=== PATIENT | male | born 1935 | race Caucasian/White ===

== ENCOUNTER 2017-04-28 22:38 | Observation (INO) ==
[2017-04-28] MEDS ORDERED: Ondansetron 4 MG/2 ML VIAL IVP ONE (23:08)
[2017-04-28] MEDS ORDERED: Aspirin 81 MG TAB.CHEW PO ONE (23:09)
[2017-04-28] MEDS ORDERED: Nitroglycerin 0.4 MG TAB.SUBL SL PRN (23:10)
--- NOTE | 2017-04-28 23:10 | Emergency Department Note ---
Disposition Clinical Impression: Chest pain Qualifiers: Chest pain type: unspecified Qualified Code(s): R07.9 - Chest pain, unspecified Disposition: Admitted As Inpatient Condition: Fair Time of Disposition: 00:45 General Adult HPI - General Chief complaint: ED Chest Pain Stated complaint: CP, dizzy Time Seen by Provider: 04/28/17 22:45 Source: patient Limitations: no limitations Nursing Notes Reviewed: Yes Vital Signs Reviewed: Yes - History of Present Illness HPI Narrative: patient is a 81-year-old male with past medical history of cardiac stents in 2011, hypertension, DM, A. fib presents emergency Department with complaints of lightheadedness and chest pain that started 1 hour prior to arrival. Patient states that he was sitting in a chair talking on his phone and he felt lightheaded as if he were going to pass out, however he did not pass out. He states since that time he has had gradual onset of this chest pressure on the right side without radiation. Denies any nausea, vomiting, diaphoresis, shortness of breath, radiation of pain or pain with exertion. The patient states that she has no history of blood clots. He states he does not recall his last cardiac workup however may have been in [address] Cid. His cardiac stents replaced in 2011. Pain Scale: 8 - Related Data Home Medications Medication Instructions Recorded Confirmed Aspirin [Adult Low Dose Aspirin EC] 81 mg PO DAILY 05/21/15 04/29/17 Atorvastatin [Lipitor] 40 mg PO HS 05/21/15 04/29/17 Carvedilol 3.125 mg PO DAILY 05/21/15 04/29/17 Cholecalciferol (Vitamin D3) 1,000 unit PO DAILY 05/21/15 04/29/17 [Vitamin D3] Vitamin E 400 unit PO DAILY 05/21/15 04/29/17 metFORMIN [Glucophage] 500 mg PO BID 05/21/15 04/29/17 Nitroglycerin [Nitrostat] 0.4 mg SL AD PRN 11/07/15 04/29/17 Allergies Allergy/AdvReac Type Severity Reaction Status Date / Time Sulfa (Sulfonamide Allergy Rash Verified 04/28/17 22:42 Antibiotics) Oxycodone AdvReac See Verified 04/28/17 22:42 Comments All systems ED: reviewed and negative except as stated. Review of Systems: As Per HPI Constitutional: Reports: other (Lightheaded). Denies: fever, chills ENT ED: Denies: congestion Cardiovascular: Reports: chest pain. Denies: palpitations, dyspnea on exertion , orthopnea, edema, syncope, paroxysmal nocturnal dyspnea Respiratory: Denies: cough, dyspnea, wheezes, sputum production Gastrointestinal: Denies: abdominal pain, nausea, vomiting, diarrhea, hematemesis, melena, hematochezia Musculoskeletal: Denies: back pain, neck pain Integumentary: Denies: rash, abrasion Neurological: Denies: headache, weakness Psychiatric: Denies: anxiety, depression Past Medical History - Past Medical History Attestation: Yes The following information was validated with the patient. Medical history: Reports: arthritis, atrial fibrillation, cancer, coronary artery disease, diabetes, hyperlipidemia, hypertension, other Surgical history: Reports: angioplasty/stent, prostatectomy Psychiatric history: Reports: no psych history - Social History Smoking Status: Never smoker Smokeless Tobacco Status: No Alcohol use: Reports: occasionally Drug use: Reports: none Physical Exam CONSTITUTIONAL: Well-appearing; well-nourished; A&O X 3, in no apparent distress HEAD: Normocephalic; atraumatic EYES: PERRL, no scleral icterus NOSE: The nose is normal in appearance without rhinorrhea NECK: No JVD or distended neck veins RESP: Normal chest excursion with respiration; breath sounds clear and equal bilaterally; no wheezes, rhonchi, or rales CARD: Regular rhythm, without murmurs, rub or gallop ABD: Non-distended; non-tender, soft, without rigidity, rebound or guarding,no pulsatile mass CHEST: No pain with palpation SKIN: Normal for age and race; warm and dry without diaphoresis ; no apparent lesions EXTREMITIES: Pulses are 2 plus and equal times 4 extremities, no peripheral edema or calf muscle pain - General Limitations: no limitations General appearance: alert, in no apparent distress Course Course Narrative: Patient 81-year-old male presenting with complaint of chest pressure on the right side as well as feeling lightheaded one hour prior to arrival. The patient does have a cardiac history positive for CAD, hypertension Hyperlipidemia, cardiac stents placed in 2011. He currently sees Dr. Cid for his cardiac workups which he has not seen him since at least 2013 according to the patient. Patient also states that his last night. We will perform a syncopal workup including a head CT and also a thorough cardiac evaluation. Patient also receive aspirin and nitroglycerin for his pain. - Reevaluation(s) Reevaluation #1: Patient's lab work came back unremarkable. Patient states his pain improved with the nitroglycerin. Patient also received his chewable full aspirin dose. I discussed the patient's case with Dr. Joseph. He accepts the patient for ACS rule out. Time: 00:43 Vital Signs Temperature 97.6 F 04/28/17 22:39 Pulse Rate 61 04/28/17 22:39 Respiratory Rate 20 04/28/17 22:39 Blood Pressure 148/82 04/28/17 22:39 O2 Sat by Pulse Oximetry 96 04/28/17 22:39 Temperature 97.4 F L 04/29/17 01:58 Pulse Rate 58 04/29/17 01:58 Respiratory Rate 18 04/29/17 01:58 Blood Pressure 121/63 04/29/17 01:58 O2 Sat by Pulse Oximetry 92 04/29/17 01:58 Oxygen Delivery Oxygen Delivery Room Air Medical Decision Making - Medical Records Medical records reviewed: Yes I reviewed the patient's medical records. - Lab Data Lab results reviewed: Yes I reviewed the patient's lab results. Result diagrams: 04/29/17 02:58 04/29/17 02:58 Lab Results 04/28/17 04/28/17 04/28/17 Range/Units 22:55 22:55 22:55 WBC 9.3 (4.3-11.1) K/mcL RBC 4.83 (4.19-5.50) M/mcL Hgb 15.9 (12.9-16.9) g/dL Hct 45.5 (37.5-50.1) % MCV 94.2 (83.0-100.0) fL MCH 32.9 (28.0-33.3) pg MCHC 34.9 (31.6-35.5) g/dL RDW 12.8 (11.5-14.5) % Plt Count 212 (140-400) K/mcL MPV 9.0 L (9.4-12.4) fL Immature Gran % 0.4 (0-4) % Seg Neutrophils % 51.8 % Lymphocytes % 34.7 % Monocytes % 8.7 % Eosinophils % 3.9 % Basophils % 0.5 % Neutrophils # 4.8 (1.6-8.9) K/mcL Lymphocytes # 3.2 (0.6-4.6) K/mcL Monocytes # 0.8 (0.0-1.3) K/mcL Eosinophils # 0.4 (0.0-0.6) K/mcL Basophils # 0.1 (0.0-0.2) K/mcL Immature Plt Fraction 1.6 (1.1-6.1) % PT 11.2 (9.4-12.1) Seconds INR 1.0 Sodium 140 (136-145) mEq/L Potassium 3.8 (3.5-5.1) mEq/L Chloride 107 (98-107) mEq/L Carbon Dioxide 25 (23-29) mEq/L BUN 11 (8-23) mg/dL Creatinine 0.97 (0.70-1.30) mg/dL Est GFR ( Amer) > 60 (> 60) Est GFR (Non-Af Amer) > 60 (> 60) BUN/Creatinine Ratio 11 (6-26) Glucose 162 H (70-105) mg/dL Calculated Osmolality 293 (280-300) Calcium 10.0 (8.6-10.3) mg/dL Troponin I (< 0.04) ng/mL Urine Color (Yellow) Urine Clarity (Clear) Urine pH (5.0-8.0) pH Units Ur Specific [place] (1.010-1.025) Urine Protein (Neg-Trace) mg/dL Urine Glucose (UA) (Normal) mg/dL Urine Ketones (Negative) mg/dL Urine Blood (Negative) Urine Nitrite (Negative) Urine Bilirubin (Negative) Urine Urobilinogen (Normal) mg/dL Ur Leukocyte Esterase (Negative) Ur Culture Indicated? (NO) 04/28/17 04/29/17 Range/Units 22:55 00:03 WBC (4.3-11.1) K/mcL RBC (4.19-5.50) M/mcL Hgb (12.9-16.9) g/dL Hct (37.5-50.1) % MCV (83.0-100.0) fL MCH (28.0-33.3) pg MCHC (31.6-35.5) g/dL RDW (11.5-14.5) % Plt Count (140-400) K/mcL MPV (9.4-12.4) fL Immature Gran % (0-4) % Seg Neutrophils % % Lymphocytes % % Monocytes % % Eosinophils % % Basophils % % Neutrophils # (1.6-8.9) K/mcL Lymphocytes # (0.6-4.6) K/mcL Monocytes # (0.0-1.3) K/mcL Eosinophils # (0.0-0.6) K/mcL Basophils # (0.0-0.2) K/mcL Immature Plt Fraction (1.1-6.1) % PT (9.4-12.1) Seconds INR Sodium (136-145) mEq/L Potassium (3.5-5.1) mEq/L Chloride (98-107) mEq/L Carbon Dioxide (23-29) mEq/L BUN (8-23) mg/dL Creatinine (0.70-1.30) mg/dL Est GFR ( Amer) (> 60) Est GFR (Non-Af Amer) (> 60) BUN/Creatinine Ratio (6-26) Glucose (70-105) mg/dL Calculated Osmolality (280-300) Calcium (8.6-10.3) mg/dL Troponin I < 0.03 (< 0.04) ng/mL Urine Color Yellow (Yellow) Urine Clarity Clear (Clear) Urine pH 5.5 (5.0-8.0) pH Units Ur Specific [place] 1.030 H (1.010-1.025) Urine Protein Negative (Neg-Trace) mg/dL Urine Glucose (UA) Normal (Normal) mg/dL Urine Ketones Negative (Negative) mg/dL Urine Blood Negative (Negative) Urine Nitrite Negative (Negative) Urine Bilirubin Negative (Negative) Urine Urobilinogen Normal (Normal) mg/dL Ur Leukocyte Esterase Negative (Negative) Ur Culture Indicated? NO (NO) - Radiology Data Radiology results reviewed: Yes I reviewed the patient's radiology results. Chest X-Ray 04/28/17 23:08 IMPRESSION: No acute cardiopulmonary abnormality. D/ / Yusuf Onofre MD / Yusuf Onofre MD Interpreting Provider: Yusuf Onofre MD Head CT 04/28/17 23:08 IMPRESSION: No acute intracranial abnormality. D/ / Anil Kat MD / Anil Kat MD Interpreting Provider: Anil Kat MD - EKG Data EKG #1 EKG attestation: Yes I reviewed and interpreted this EKG. EKG results narrative: Patient's EKG done at 22:44 shows sinus rhythm at 60 bpm. It is normal axis. PA is 167, QRS is 93, QT is 424 and QTc is 425 these are within normal limits. Patient does have T-wave inversions in leadII, III, aVF, V3-V6. No ST elevation or depression or Q waves. The T-wave inversions in lead V2 and V3 appear new when compared to his old EKG done on 11/07/2015. Attestation Statement - Attestation Attestation: I, Griffin Young DO, examined this patient [id number] and my medical decision-making was reviewed with Dr. Aneudy Louise, Resident Physician. I agree with the documented findings, disposition and treatment plan as described except to the extent set forth below. Please see my progress notes for details. 81-year-old male presents to emergency room with chest pain and dizziness. He has a previous cardiac history presented similarly. Of note patient did just lose his yesterday. Patient denies any other life stressors at this point. Currently denying any shortness of breath headache vision changes nausea vomiting or diarrhea. Denies any fevers or chills. Main complaint is a chest pressure and tightness. Patient had cardiac evaluation this point. Initial screening EKG does not show any acute signs of myocardial infarction. He does have what appears to be a slight change with biphasic T-wave in leads V2 V3 and V4. This is different in comparison to previous. Patient will have nitroglycerin trial completed here in the emergency room. Concern is noted for possible stress-induced cardiomyopathy versus acute coronary syndrome. He will be treated symptomatically with aspirin nitroglycerin glycerin here. The patient will need admission. Also describes some intermittent dizziness. Patient will have syncopal evaluation completed in the emergency room. Patient will then be admitted to the hospital for definitive management and evaluation of near syncopal event with chest discomfort and pain. See detailed documentation of the physical exam, medical intervention and medical decision making and disposition and the resident physician's note. Patient has negative workup. This time. Patient has complete resolution of the symptoms. Patient will be admitted to the hospital for definitive management
[2017-04-28 23:18] LABS: Basophils # 0.1 K/mcL (0.0-0.2); Basophils % 0.5 %; Eosinophils # 0.4 K/mcL (0.0-0.6); Eosinophils % 3.9 %; Hematocrit 45.5 % (37.5-50.1); Hemoglobin 15.9 g/dL (12.9-16.9); Immature Granulocytes % 0.4 % (0-4); Immature Platelets 1.6 % (1.1-6.1); Lymphocytes # 3.2 K/mcL (0.6-4.6); Lymphocytes % 34.7 %; Mean Corpuscular HGB Conc 34.9 g/dL (31.6-35.5); Mean Corpuscular Hemoglobin 32.9 pg (28.0-33.3); Mean Corpuscular Volume 94.2 fL (83.0-100.0); Monocytes # 0.8 K/mcL (0.0-1.3); Monocytes % 8.7 %; Neutrophils # 4.8 K/mcL (1.6-8.9); Platelet Count 212 K/mcL (140-400); Red Blood Count 4.83 M/mcL (4.19-5.50); Red Cell Distribution Width 12.8 % (11.5-14.5); Segmented Neutrophils % 51.8 %
[2017-04-28 23:21] LABS: Prothrombin Time 11.2 Seconds (9.4-12.1)
[2017-04-29 00:01] LABS: BUN/Creatinine Ratio 11 (6-26); Blood Urea Nitrogen 11 mg/dL (8-23); Carbon Dioxide 25 mEq/L (23-29); Chloride 107 mEq/L (98-107); Glucose 162 mg/dL (70-105); Osmolality,Calculated 293 (280-300); Potassium 3.8 mEq/L (3.5-5.1); Sodium 140 mEq/L (136-145); eGFR For African Americans > 60 (> 60); eGFR For Non-African Americans > 60 (> 60)
[2017-04-29 00:30] LABS: Bilirubin,Urine Negative (Negative); Blood,Urine Negative (Negative); Clarity,Urine Clear (Clear); Color,Urine Yellow (Yellow); Glucose,Urine (UA) Normal (Normal); Ketones,Urine Negative (Negative); Leukocyte Esterase,Urine Negative (Negative); Nitrite,Urine Negative (Negative); PH,Urine 5.5 pH Units (5.0-8.0); Protein,Urine Negative (Neg-Trace); Urobilinogen,Urine Normal (Normal)
[2017-04-29] MEDS ORDERED: Ondansetron 4 MG/2 ML VIAL IVP PRN (02:35)
[2017-04-29] MEDS ORDERED: Acetaminophen 325 MG TABLET PO PRN (02:35)
[2017-04-29] MEDS ORDERED: D5% in Water 1,000 ML IVC PRN (02:37)
[2017-04-29] MEDS ORDERED: Dextrose Gel 15 GM/37.5 ML TUBE PO PRN ×2 (02:37)
[2017-04-29] MEDS ORDERED: *HR* Dextrose 50 % in Water (Syg) 50 ML SYRINGE IVP PRN (02:37)
--- NOTE | 2017-04-29 02:40 | Internal Med History&Physical ---
Date of Encounter: 04/29/17 Time of Encounter: 02:38 Assessment and Plan (1) Near syncope Current visit: Yes Status: Acute could be vasovagal, related to emotional stress from the of his . To r /o cardiogenic causes. CT head showed no e/o- infarct or bleed. Chest XRay reviewed independently- shows clear lung pierre. Continue Telemetry monitoring and cycle Troponins; (2) Essential hypertension Current visit: Yes Status: Chronic BP well-controlled; continue home meds; (3) Diabetes mellitus Current visit: Yes Status: Chronic Accucheck blood glucose monitoring with sliding scale insulin; diabetic diet; Qualifiers: Diabetes mellitus type: type 2 Diabetes mellitus complication status: with unspecified complications Diabetes mellitus intermediate frame tender insulin use: without long-term use Qualified Code(s): E11.8 - Type 2 diabetes mellitus with unspecified complications (4) Chest pain Current visit: Yes Status: Acute plan as above; Qualifiers: Chest pain type: unspecified Qualified Code(s): R07.9 - Chest pain, unspecified (5) CAD (coronary artery disease) Current visit: Yes Status: Chronic continue Telemetry monitoring, ASA, statin, beta ghazala; Qualifiers: Coronary Disease-Associated Artery/Lesion type: [place] artery [place] vs. transplanted heart: [place] heart Associated angina: without angina Qualified Code(s): I25.10 - Atherosclerotic heart disease of [place] coronary artery without angina pectoris (6) LILLI on CPAP Current visit: Yes Status: Chronic Internal Medicine - H&P: HPI Chief complaint: Dizziness Admitted From: Emergency Dept Plans for Post Hospital Care: Home History of present illness: Mr. Aguilar is a 81 year old male with h/o- CAD, HTN, DM presents with c/o- near syncope. Patient reports that he was sitting on his couch earlier this evening, around 9-10PM and had a sudden onset of dizziness and the feeling of passing out. He then developed chest tightness, nonradiating, not associated with palpitations, dyspnea, cough, now subsided. No syncope, headache, blurred vision, nausea, vomiting, focal weakness, paresthesias. Of note, patient's yesterday at [facility]. Past Med Surg Social Fam HX - Past Medical History Medical history: arthritis, atrial fibrillation, cancer (prostate cancer), coronary artery disease, diabetes, hyperlipidemia, hypertension, other (LILLI) Psychiatric history: no psych history - Past Surgical History Surgical History: angioplasty/stent, prostatectomy - Social History Smoking Status: Never smoker Smokeless Tobacco Status: No Alcohol use: occasionally Drug use: none Occupational status: retired Current living situation: Home - Independent Activity Level: Independent ambulation Recent Out of Country Travel Within the Last 8 Weeks: No Exposure or Possible Exposure to Illness During Travel: No - Family History Mother Hx Family Cardiac Disorders: Yes (HTN, HLD) Father Hx Family Cardiac Disorders: Yes (HTN, HLD) Internal Medicine - H&P: Meds Aspirin [Adult Low Dose Aspirin EC] 81 mg PO DAILY 05/21/15 [History] Atorvastatin [Lipitor] 40 mg PO HS 05/21/15 [History] Carvedilol 3.125 mg PO DAILY 05/21/15 [History] Cholecalciferol (Vitamin D3) [Vitamin D3] 1,000 unit PO DAILY 05/21/15 [History] Vitamin E 400 unit PO DAILY 05/21/15 [History] metFORMIN [Glucophage] 500 mg PO BID 05/21/15 [History] Nitroglycerin [Nitrostat] 0.4 mg SL AD PRN 11/07/15 [History] 3 Allergy/AdvReac Type Severity Reaction Status Date / Time Sulfa (Sulfonamide Allergy Rash Verified 04/28/17 22:42 Antibiotics) Oxycodone AdvReac See Verified 04/28/17 22:42 Comments All Systems PM: A 10-system review of systems was performed and is negative for pertinent findings except as documented above in the HPI. - Constitutional Constitutional: no chills, no fever(s), no night sweats - EENT Eyes: no change in vision, no discharge, no pain, no photophobia Ears: no ear discharge, no ear pain, no tinnitus Nose, mouth and throat: no dysphagia, no nasal discharge, no neck pain, no sore throat - Cardiovascular Cardiovascular ROS IM: chest pain, lightheadedness, no diaphoresis, no dyspnea, no palpitations, no syncope - Respiratory Respiratory: no cough, no dyspnea, no wheezing, no excessive phlegm production - Gastrointestinal Gastrointestinal: no abdominal pain, no diarrhea, no hematemesis, no hematochezia, no melena, no nausea, no vomiting - Musculoskeletal Musculoskeletal ROS IM: no numbness, no tingling - Integumentary Integumentary IM: no rash, no unusual bruising - Neurological Neurological ROS: no confusion, no convulsions, no focal weakness, no numbness, no tingling, no tremor(s) - Hematologic/Lymphatic Hematologic/Lymphatic: no easy bruising - Constitutional Vitals: Temp Pulse Resp BP Pulse Ox 97.4 F L 58 18 121/63 92 04/29/17 01:58 04/29/17 01:58 04/29/17 01:58 04/29/17 01:58 04/29/17 01:58 General appearance: Present: A&O X 3, answers questions appropriately - Respiratory Respiratory exam: Present: CTAB. Absent: accessory muscle use, rales, rhonchi, wheezes - Cardiovascular Cardiovascular exam: Present: RRR, +S1, +S2. Absent: diastolic murmur, gallop, rubs, systolic murmur - GI/Abdominal GI/Abdominal exam: Present: normal bowel sounds, soft, no peritoneal signs. Absent: distended, tenderness - Extremities Exam Extremities exam: Present: full ROM, warm, radial pulses palpable and symmetrical. Absent: calf tenderness, cyanotic, pedal edema - Neurological Exam Neurological exam: Present: CN II-XII intact, oriented X3, no focal deficits. Absent: pronater drift, facial droop, speech deficit - Skin Skin exam: Present: dry, intact Internal Med - H&P Results - Labs CBC & Chem 7: 04/29/17 02:58 04/29/17 02:58 - EKG Data -: EKG Interpreted by Myself EKG shows normal: sinus rhythm, ST-T waves (TWI in anterolateral leads- new in V3) Rate: normal
[2017-04-29 03:08] LABS: Basophils % 0.4 %; Eosinophils # 0.3 K/mcL (0.0-0.6); Eosinophils % 3.6 %; Hematocrit 40.8 % (37.5-50.1); Hemoglobin 14.1 g/dL (12.9-16.9); Immature Granulocytes % 0.2 % (0-4); Immature Platelets 1.5 % (1.1-6.1); Lymphocytes # 2.6 K/mcL (0.6-4.6); Mean Corpuscular HGB Conc 34.6 g/dL (31.6-35.5); Mean Corpuscular Hemoglobin 32.2 pg (28.0-33.3); Mean Corpuscular Volume 93.2 fL (83.0-100.0); Mean Platelet Volume 8.9 fL (9.4-12.4); Monocytes # 0.6 K/mcL (0.0-1.3); Neutrophils # 4.7 K/mcL (1.6-8.9); Platelet Count 178 K/mcL (140-400); Red Blood Count 4.38 M/mcL (4.19-5.50); Red Cell Distribution Width 12.8 % (11.5-14.5); Segmented Neutrophils % 56.8 %
[2017-04-29 03:34] LABS: BUN/Creatinine Ratio 13 (6-26); Blood Urea Nitrogen 11 mg/dL (8-23); Calcium 9.3 mg/dL (8.6-10.3); Carbon Dioxide 22 mEq/L (23-29); Chloride 108 mEq/L (98-107); Glucose 153 mg/dL (70-105); Osmolality,Calculated 292 (280-300); Potassium 3.9 mEq/L (3.5-5.1); Sodium 140 mEq/L (136-145); eGFR For African Americans > 60 (> 60); eGFR For Non-African Americans > 60 (> 60)
[2017-04-29 07:18] VITALS: BP 144/74
[2017-04-29] MEDS: Insulin LISPRO 300 UNITS/3 ML VIAL SQ SCH ×2 (07:34→14:54)
[2017-04-29] MEDS ORDERED: Aspirin Enteric Coated 81 MG Tablet PO SCH (09:00)
[2017-04-29] MEDS ORDERED: Regadenoson 0.4 MG/5 ML SYRINGE IVP ONE (11:11)
--- NOTE | 2017-04-29 15:20 | Discharge Summary ---
Date of Encounter: 04/29/17 Time of Encounter: 10:00 - Discharge Diagnosis (1) Near syncope Priority: Primary Status: Resolved Comments: presented with c/o near syncope; patient reported sudden onset of dizziness and the feeling of passing out. Episode occurred while sitting on couch and in the setting of emotional stress. Patient's earlier that morning. Head CT nonacute, bilateral carotid Dopplers unremarkable. No evidence of orthostatic hypotension. No symptom recurrence while inpatient. Suspect secondary to stress/anxiety. (2) Chest pain Priority: Primary Status: Resolved Comments: reported chest fullness prior to arrival. Does have history of CAD with stents. Serial troponins is negative, EKG without acute ST changes. TTE with EF 55% and mild diastolic dysfunction. Stress test negative for ischemia or infarct. Suspect secondary to stress with the recent passing of his . No further cardiac workup indicated at this time. 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 With chest pain as noted above. Plan as noted above as well. Cont ASA, BB , statin. Qualifiers: Coronary Disease-Associated Artery/Lesion type: [place] artery [place] vs. transplanted heart: [place] heart Associated angina: without angina Qualified Code(s): I25.10 - Atherosclerotic heart disease of [place] coronary artery without angina pectoris (4) Diabetes mellitus Priority: Secondary Status: Chronic Comments: per hx. Cont home oral hypoglycemics. 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 BP controlled. Cont home BP medication. - Discharge Medications Home Medications: Aspirin [Adult Low Dose Aspirin EC] 81 mg PO DAILY 05/21/15 [History] Atorvastatin [Lipitor] 40 mg PO HS 05/21/15 [History] Carvedilol 3.125 mg PO DAILY 05/21/15 [History] Cholecalciferol (Vitamin D3) [Vitamin D3] 1,000 unit PO DAILY 05/21/15 [History] Vitamin E 400 unit PO DAILY 05/21/15 [History] metFORMIN [Glucophage] 500 mg PO BID 05/21/15 [History] Nitroglycerin [Nitrostat] 0.4 mg SL AD PRN 11/07/15 [History] Allergies/Adverse Reactions: 3 Allergy/AdvReac Type Severity Reaction Status Date / Time Sulfa (Sulfonamide Allergy Rash Verified 04/28/17 22:42 Antibiotics) Oxycodone AdvReac See Verified 04/28/17 22:42 Comments Procedures/tests Complete & Pending: Procedures Performed prior 72 hours Category Date Time Status NM alex perf SPECT multi [NM] Routine Exams 04/29/17 09:33 Taken EKG [ECG 12 lead ECG] [ECG] Stat Y 04/29/17 09:09 Stop Req EV carotid duplex imaging BI Routine Y 04/29/17 07:49 Completed EV echocardiogram Routine Y 04/29/17 07:49 Completed SP pharm nuclear stress Routine Y 04/29/17 08:59 Completed Date of admission: 04/29/17 00:56 Primary care physician: Per Fisher MD Discharging clinician: Jen Guthrie Anticipated date of discharge: 04/29/17 - Patient Status Disposition: Home, Self-Care Condition: Good Functional capacity at discharge: independent ambulation Overall status at discharge: patient is back to baseline - Discharge Instructions Instructions: Lightheadedness, Hack Driver (GEN), Chest Pain (DC), Noncardiac Chest Pain (DC) Follow Up With: Per Fisher MD [Primary Care Provider] - 05/11/17 10:00 am - Diet and Activity Activity: increase activity as tolerated Diet: diabetic diet, low fat, low cholesterol Interval History: Seen and examined at bedside, patient says he feels better and would like to go home. Daughter at bedside and reports patient had a long day yesterday as his just and he was making arrangements yesterday. Daughter thinks it was a combination of emotional stress, anxiety and a long exhausting day. Patient says he feels back to baseline and feels comfortable going home. No further chest pain, no shortness of breath. No lightheadedness or dizziness. Hospital course: See assessment and plan for hospital course - Time Spent with Patient Total time spent providing and/or coordinating discharge services: - Constitutional Vitals: Temp Pulse Resp BP Pulse Ox 97.9 F 65 18 144/74 94 04/29/17 07:15 04/29/17 07:15 04/29/17 07:15 04/29/17 07:15 04/29/17 07:15 General appearance: Present: A&O X 3, no acute distress, answers questions appropriately - Head Head exam: Present: atraumatic, normocephalic - Eye Eye exam: Present: PERRL, conjuntiva pink, sclera anicteric Pupils: Present: PERRL - Neck Neck exam general surgery: Present: supple, trachea midline. Absent: lymphadenopathy - Respiratory Respiratory exam: Present: CTAB. Absent: accessory muscle use, rales, rhonchi, wheezes - Cardiovascular Cardiovascular exam: Present: RRR, +S1, +S2. Absent: diastolic murmur, gallop, rubs, systolic murmur - GI/Abdominal GI/Abdominal exam: Present: normal bowel sounds, soft, no peritoneal signs. Absent: distended, tenderness - Extremities Exam Extremities exam: Present: warm, radial pulses palpable and symmetrical. Absent : calf tenderness, cyanotic, pedal edema - Neurological Exam Neurological exam: Present: CN II-XII intact, oriented X3, no focal deficits. Absent: pronater drift, facial droop, speech deficit - Skin Skin exam: Present: dry, intact
--- NOTE | 2017-04-29 19:17 | Electrocardiograph Report ---
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
[2017-04-29] MEDS ORDERED: Insulin LISPRO 300 UNITS/3 ML VIAL SQ SCH (21:00)
== END 2017-04-29 15:49 | disposition home or self-care (01) ==
LOC: EMEROO 22:38 → 3BNU 22:38
PROVIDERS: ADMIT Internal Medicine Hematology & Oncology; ATTEND Registered Nurse

== ENCOUNTER 2017-06-10 09:49 | Observation (INO) ==
--- NOTE | 2017-06-10 10:03 | Emergency Department Note ---
Disposition Clinical Impression: Shortness of breath, Diaphoresis Disposition: Admitted As Inpatient Condition: Good SOB HPI - General Chief Complaint: ED Shortness of Breath/Dyspnea Stated Complaint: SOB Time Seen by Provider: 06/10/17 09:55 Source: patient, EMS Mode of arrival: EMS Limitations: no limitations Nursing Notes Reviewed: Yes Vital Signs Reviewed: Yes - History of Present Illness 81-year-old male history of coronary artery disease status post 2 cardiac stents most recently in 2013 as per family, hypertension, diabetes, hyperlipidemia who presents to the ER with a chief complaint of shortness of breath. Patient reports his symptoms started this morning. He got up and was walking to the bathroom and broke out into a sweat and felt short of breath. States the symptoms went away and then again recurred later with shortness of breath again. He denies any chest pain during this time. No recent illnesses. No fevers. No nausea vomiting or diarrhea. He does report he had atypical presentations of his prior to coronary events one being not feeling well and the other with near syncopal episode. No medications given in route. Patient feels better at the time of arrival. No history of DVT or PE. No other complaints. Pt Subjective Complaint: shortness of breath Onset (ago): hour(s) Severity: moderate Consistency/Duration: intermittent, now resolved Improves with: nothing Worsens with: nothing Associated symptoms: Denies: chest pain, fever, cough Treatment prior to arrival: none Cough present: No Sputum production: No Sputum Amount: None - Related Data Home oxygen amount: none Home Medications Medication Instructions Recorded Confirmed Aspirin [Adult Low Dose Aspirin EC] 81 mg PO DAILY 05/21/15 06/10/17 Atorvastatin [Lipitor] 40 mg PO HS 05/21/15 06/10/17 Carvedilol 3.125 mg PO DAILY 05/21/15 06/10/17 Cholecalciferol (Vitamin D3) 1,000 unit PO DAILY 05/21/15 06/10/17 [Vitamin D3] Vitamin E 400 unit PO DAILY 05/21/15 06/10/17 metFORMIN [Glucophage] 500 mg PO BID 05/21/15 06/10/17 Nitroglycerin [Nitrostat] 0.4 mg SL AD PRN 11/07/15 06/10/17 Allergies Allergy/AdvReac Type Severity Reaction Status Date / Time Sulfa (Sulfonamide Allergy Hives Verified 06/10/17 10:13 Antibiotics) Oxycodone AdvReac Dizziness Verified 06/10/17 10:13 All systems ED: reviewed and negative except as stated. Constitutional: Denies: fever Cardiovascular: Denies: chest pain Respiratory: Reports: dyspnea. Denies: cough Gastrointestinal: Denies: abdominal pain, nausea, vomiting Past Medical History - Past Medical History Attestation: Yes The following information was validated with the patient. Source: patient Medical history: Reports: arthritis, atrial fibrillation, cancer, coronary artery disease, diabetes, hyperlipidemia, hypertension, other Surgical history: Reports: angioplasty/stent, prostatectomy Psychiatric history: Reports: no psych history - Social History Smoking Status: Never smoker Smokeless Tobacco Status: No Alcohol use: Reports: occasionally Drug use: Reports: none Physical Exam - General Limitations: no limitations General appearance: alert, in no apparent distress - Head Head exam: atraumatic, normocephalic - Eye Eye exam: Present: normal appearance - ENT ENT exam: normal exam - Neck Neck exam: Present: normal inspection - Chest Chest inspection: Present: normal inspection, symmetric chest wall rise - Respiratory Respiratory exam: Present: normal lung sounds bilaterally - Cardiovascular Cardiovascular exam: Present: regular rate, normal rhythm, normal heart sounds - Abdominal Exam Abdominal exam: Present: soft, Non-Tender. Absent: tenderness - Extremities Exam Extremities exam: Present: normal inspection, full ROM - Expanded Upper Extremity Exam Shoulder exam: Present: normal inspection, full ROM Arm exam: Present: normal inspection, full ROM Elbow exam: Present: normal inspection, full ROM Forearm/Wrist exam: Present: normal inspection, full ROM Hand exam: Present: normal inspection, full ROM - Expanded Lower Extremity Exam Hip/Pelvis exam: Present: normal inspection, full ROM Upper leg exam: Present: normal inspection, full ROM Knee exam: Present: normal inspection, full ROM Lower leg exam: Present: normal inspection, full ROM. Absent: swelling Ankle exam: Present: normal inspection, full ROM Foot/toe exam: Present: normal inspection, full ROM - Skin Skin exam: Present: warm, dry Course Course Narrative: Patient seen and examined. Vital signs reviewed. We will get an EKG, chest x- ray as well as labs including troponin. Vital Signs Temperature 98 F 06/10/17 09:51 Pulse Rate 73 06/10/17 09:51 Respiratory Rate 16 06/10/17 09:51 Blood Pressure 156/90 06/10/17 09:51 O2 Sat by Pulse Oximetry 98 06/10/17 09:51 Temperature 97.9 F 06/10/17 12:33 Pulse Rate 64 06/10/17 12:33 Respiratory Rate 20 06/10/17 12:33 Blood Pressure 133/69 06/10/17 12:33 O2 Sat by Pulse Oximetry 97 06/10/17 12:33 Oxygen Delivery Oxygen Delivery Room Air Shortness of Breath/Dyspnea - [facility] Narrative Medical decision making narrative: 81-year-old male with extensive cardiac history presents due to shortness of breath and diaphoresis. No chest pain. Recurrence twice today. His EKG is without ischemic findings. Chest x-ray unremarkable. Labs including initial troponin negative. Patient admitted to the hospitalist service for dyspnea and diaphoresis. - Medical Records Medical records reviewed: Yes I reviewed the patient's medical records. Reviewed patient's previous admission in April 2017. On 04/29/17 he had a nuclear stress test without evidence of ischemia. Left ventricular ejection fraction of 55% with mild left ventricular concentric hypertrophy. He also had a carotid duplex at that time which was normal. - Lab Data Lab results reviewed: Yes I reviewed the patient's lab results. Result diagrams: 06/10/17 10:05 06/10/17 10:05 Lab Results 06/10/17 06/10/17 06/10/17 Range/Units 10:05 10:05 10:05 WBC 8.2 (4.3-11.1) K/mcL RBC 4.86 (4.19-5.50) M/mcL Hgb 15.7 (12.9-16.9) g/dL Hct 46.1 (37.5-50.1) % MCV 94.9 (83.0-100.0) fL MCH 32.3 (28.0-33.3) pg MCHC 34.1 (31.6-35.5) g/dL RDW 12.9 (11.5-14.5) % Plt Count 187 (140-400) K/mcL MPV 9.1 L (9.4-12.4) fL Immature Gran % 0.4 (0-4) % Seg Neutrophils % 61.9 % Lymphocytes % 26.9 % Monocytes % 6.3 % Eosinophils % 4.0 % Basophils % 0.5 % Neutrophils # 5.1 (1.6-8.9) K/mcL Lymphocytes # 2.2 (0.6-4.6) K/mcL Monocytes # 0.5 (0.0-1.3) K/mcL Eosinophils # 0.3 (0.0-0.6) K/mcL Basophils # 0.0 (0.0-0.2) K/mcL Sodium 139 (136-145) mEq/L Potassium 4.4 (3.5-5.1) mEq/L Chloride 105 (98-107) mEq/L Carbon Dioxide 29 (23-29) mEq/L BUN 9 (8-23) mg/dL Creatinine 0.87 (0.70-1.30) mg/dL Est GFR ( Amer) > 60 (> 60) Est GFR (Non-Af Amer) > 60 (> 60) BUN/Creatinine Ratio 10 (6-26) Glucose 108 H (70-105) mg/dL Calculated Osmolality 287 (280-300) Calcium 10.0 (8.6-10.3) mg/dL Troponin I < 0.03 (< 0.04) ng/mL B-Natriuretic Peptide (Less than 100) pg/mL 06/10/17 Range/Units 10:05 WBC (4.3-11.1) K/mcL RBC (4.19-5.50) M/mcL Hgb (12.9-16.9) g/dL Hct (37.5-50.1) % MCV (83.0-100.0) fL MCH (28.0-33.3) pg MCHC (31.6-35.5) g/dL RDW (11.5-14.5) % Plt Count (140-400) K/mcL MPV (9.4-12.4) fL Immature Gran % (0-4) % Seg Neutrophils % % Lymphocytes % % Monocytes % % Eosinophils % % Basophils % % Neutrophils # (1.6-8.9) K/mcL Lymphocytes # (0.6-4.6) K/mcL Monocytes # (0.0-1.3) K/mcL Eosinophils # (0.0-0.6) K/mcL Basophils # (0.0-0.2) K/mcL Sodium (136-145) mEq/L Potassium (3.5-5.1) mEq/L Chloride (98-107) mEq/L Carbon Dioxide (23-29) mEq/L BUN (8-23) mg/dL Creatinine (0.70-1.30) mg/dL Est GFR ( Amer) (> 60) Est GFR (Non-Af Amer) (> 60) BUN/Creatinine Ratio (6-26) Glucose (70-105) mg/dL Calculated Osmolality (280-300) Calcium (8.6-10.3) mg/dL Troponin I (< 0.04) ng/mL B-Natriuretic Peptide 39 (Less than 100) pg/mL - Radiology Data Radiology results reviewed: Yes I reviewed the patient's radiology results. Chest X-Ray 06/10/17 09:55 IMPRESSION: No active cardiopulmonary disease D/ / Cecilio Jean MD / Cecilio Jean MD Interpreting Provider: Cecilio Jean MD - EKG Data EKG attestation: Yes I reviewed and interpreted this EKG. EKG results narrative: EKG demonstrates sinus rhythm with a rate of 67 bpm. Left axis deviation. Intervals. Normal R-wave progression. There are T-wave inversions in leads V4V6 as well as nonspecific ST-T wave changes in the inferior leads that are not new from his prior EKG. no ST segment elevation. No significant changes from previous EKG dated 04/28/17. S.B.A.R. - S.B.A.R. Situation: Demographics, MOA Background: Presenting Complaint, Relevant PMH, Meds, & Allergies Assessment: Course and respsone to treatment, Exam Concerns, Patient/Family Expectation, Pertinant Lab Results Recommendation: Barrier(s) to disposition, Recommendation based on pending studies, treatments, or consults S.B.A.R. Report Given to: Dr. Peterson Attestation Statement - Attestation Attestation: I, Griffin Young DO, examined this patient [id number] and my medical decision-making was reviewed with Dr. Ángel Flores), Resident Physician. I agree with the documented findings, disposition and treatment plan as described except to the extent set forth below. Please see my progress notes for details. 81-year-old male presents to the emergency room for evaluation of shortness of breath. Symptoms started while he was walking to the bathroom. He denied any chest pain at the time. Currently denying nausea vomiting diarrhea headaches vision changes chest pain or shortness of breath. He is concerned because he felt diaphoretic sweaty and had palpitations along with the shortness of breath at the time of onset. Vital signs on presentation were unremarkable. Patient does have a cardiac history. Discharge probably a recent stress test and echo completed on 04/29/17. EKG reviewed showed chronic stable presentation of this time. Patient is symptom-free at this point it has not been provided any intervention in transit by EMS. Patient is concerning secondary to the complaint of diaphoresis along with the shortness of breath. Cardiac evaluation will be completed in consultation with the on-call low vision therapist will be established. Otherwise patient's physical exam appears to be unremarkable at this time. Lungs are clear heart is regular abdomen is soft nontender nondistended no guarding no rigidity and no peritoneal-like symptoms at this time. Patient is otherwise in no apparent distress on presentation speaking full sentences and acting completely appropriate. Disposition pending the workup and treatment course. See detailed documentation of the physical exam, medical intervention, medical decision-making and disposition in the resident physician's note. No critical care progress this patient's treatment course 1200 Patient medically cleared here. Initial passes with a complaint of what appears to be shortness of breath concerning for cardiac concerns. No other acute findings and workup and evaluation. Patient was informed and comfortable with the plan. No other concerns or issues noted this time per the family and the patient. Hospitalist was contacted and they had no other recommendations are concerned. Patient will be admitted for definitive management
[2017-06-10 10:14] LABS: Basophils % 0.5 %; Eosinophils # 0.3 K/mcL (0.0-0.6); Hematocrit 46.1 % (37.5-50.1); Hemoglobin 15.7 g/dL (12.9-16.9); Immature Granulocytes % 0.4 % (0-4); Lymphocytes # 2.2 K/mcL (0.6-4.6); Lymphocytes % 26.9 %; Mean Corpuscular HGB Conc 34.1 g/dL (31.6-35.5); Mean Corpuscular Hemoglobin 32.3 pg (28.0-33.3); Mean Corpuscular Volume 94.9 fL (83.0-100.0); Mean Platelet Volume 9.1 fL (9.4-12.4); Monocytes # 0.5 K/mcL (0.0-1.3); Monocytes % 6.3 %; Neutrophils # 5.1 K/mcL (1.6-8.9); Platelet Count 187 K/mcL (140-400); Red Blood Count 4.86 M/mcL (4.19-5.50); Red Cell Distribution Width 12.9 % (11.5-14.5); Segmented Neutrophils % 61.9 %
[2017-06-10 11:11] LABS: BUN/Creatinine Ratio 10 (6-26); Blood Urea Nitrogen 9 mg/dL (8-23); Carbon Dioxide 29 mEq/L (23-29); Chloride 105 mEq/L (98-107); Glucose 108 mg/dL (70-105); Osmolality,Calculated 287 (280-300); Potassium 4.4 mEq/L (3.5-5.1); Sodium 139 mEq/L (136-145); eGFR For African Americans > 60 (> 60); eGFR For Non-African Americans > 60 (> 60)
--- NOTE | 2017-06-10 12:07 | Internal Med History&Physical ---
Date of Encounter: 06/10/17 Time of Encounter: 11:40 Assessment and Plan (1) CAD (coronary artery disease) Current visit: Yes Status: Acute History of CAD s/p stents both preceeded by atypical symptoms. He denies chest pain but has sob and diaphoresis (similar to previous cardiac event). Recent negative cardiac w/u (May 2017) Admit for observation Trned Kennedy. Initial Troponin wnl Telemetry No ischemic changes on current ECG Recent cardiac w/u less than one month ago with newg myocardial perfusion test Recent Echo showed normal LVEF 55% with severely dialted LA, mild LV hypertrophy and no significant valvular dz. Continue aspirin, statin and BB Consult cardiology if Troponins increase or symptoms dont fully resolve. ( Symptoms improved but not completely resolved now.) Qualifiers: Coronary Disease-Associated Artery/Lesion type: [place] artery [place] vs. 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 Start low scale SSI ( Humalog) with qACHS AccuChecks. 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 (4) LILLI on CPAP Current visit: No Status: Chronic Continue CPAP at night (5) Urinary incontinence due to urethral sphincter incompetence Current visit: No Status: Chronic (6) History of prostate cancer Current visit: No Status: Chronic S/p prostatectomy No recurrence per pt report Internal Medicine - H&P: HPI Chief complaint: Two episodes of diaphoresis and sob Admitted From: Emergency Dept Plans for Post Hospital Care: Home History of present illness: 81 yr old man with CAD s/p coronary artery stents (2013) who experienced two episodes of acute SOB accompanied by diaphoresis but no chest pain. These symptoms are similar to his symptoms at the time of his prior cardiac events per pt. report. He was not under stress or exerting himself when the symptoms occurred. EMS was called and he was brought to the ER. His w/u is unrevealing at this time. His CXR does not show infiltrates or pleural effusions. His ECG does not show acute ischemic changes. His first Troponin is < 0.03 and his BNP is 39 with no clinical signs of CHF. He afebrile and has a normal WBC. He has not been sick and denies sore throat, cough, chest pain/press, N/V/D or any other significant symptoms other than noted above. He has DM-2 but his BG was not low to account for his symptoms. He's hemodynamically stable but still having mild sob and will be admitted for observation. He's recently (May 2017) had an Echo and myocardial perfusion scan with no significant structural changes except atrial enlargement and no perfusion deficits were noted on the myocardial perfusion test. Past Med Surg Social Fam HX - Past Medical History Medical history: arthritis, atrial fibrillation, cancer, coronary artery disease , diabetes, hyperlipidemia, hypertension, other Psychiatric history: no psych history - Past Surgical History Surgical History: angioplasty/stent, prostatectomy - Social History Smoking Status: Never smoker Smokeless Tobacco Status: No Alcohol use: occasionally Drug use: none - Family History Mother Hx Family Cardiac Disorders: Yes (HTN, HLD) Father Hx Family Cardiac Disorders: Yes (HTN, HLD) Internal Medicine - H&P: Meds Aspirin [Adult Low Dose Aspirin EC] 81 mg PO DAILY 05/21/15 [History] Atorvastatin [Lipitor] 40 mg PO HS 05/21/15 [History] Carvedilol 3.125 mg PO DAILY 05/21/15 [History] Cholecalciferol (Vitamin D3) [Vitamin D3] 1,000 unit PO DAILY 05/21/15 [History] Vitamin E 400 unit PO DAILY 05/21/15 [History] metFORMIN [Glucophage] 500 mg PO BID 05/21/15 [History] Nitroglycerin [Nitrostat] 0.4 mg SL AD PRN 11/07/15 [History] 3 Allergy/AdvReac Type Severity Reaction Status Date / Time Sulfa (Sulfonamide Allergy Hives Verified 06/10/17 10:13 Antibiotics) Oxycodone AdvReac Dizziness Verified 06/10/17 10:13 All Systems PM: A 10-system review of systems was performed and is negative for pertinent findings except as documented above in the HPI. - Constitutional Constitutional: excessive sweating, no anorexia, no chills, no fever(s), no falls, no lethargy, no malaise, no night sweats, no weakness - EENT Eyes: as per HPI, no blurry vision, no change in vision Ears: as per HPI, no ear pain, no tinnitus Nose, mouth and throat: as per HPI, neck pain - Cardiovascular Cardiovascular ROS IM: diaphoresis, dyspnea, dyspnea on exertion, no chest pain , no irregular heart rhythm, no orthopnea, no palpitations, no syncope - Respiratory Respiratory: dyspnea, dyspnea on exertion, no cough, no hemoptysis, no wheezing , no snoring, no stridor, no pain with cough - Gastrointestinal Gastrointestinal: as per HPI, no abdominal pain, no belching, no bloating, no diarrhea, no dyspepsia, no tenesmus, no vomiting - Genitourinary Genitourinary ROS male: urinary incontinence, no difficulty urinating, no dysuria - Musculoskeletal Musculoskeletal ROS IM: neck pain, no back pain, no deformity, no myalgias, no numbness - Integumentary Integumentary IM: no erythema, no skin ulcer, no jaundice - Neurological Neurological ROS: as per HPI, no paresthesias, no tremor(s), no vertigo - Psychiatric Psychiatric: no anxiety, no behavioral changes, no confusion, no depression - Endocrine Endocrine IM: as per HPI, no flushing, no polyphagia - Hematologic/Lymphatic Hematologic/Lymphatic: as per HPI - Constitutional Vitals: Temp Pulse Resp BP Pulse Ox 98 F 65 20 121/69 97 06/10/17 09:51 06/10/17 11:47 06/10/17 11:47 06/10/17 11:47 06/10/17 11:47 General appearance: Present: A&O X 3, no acute distress, answers questions appropriately. Absent: severe distress - Head Head exam: Present: atraumatic, normocephalic - Eye Eye exam: Present: EOMI, PERRL, conjuntiva pink, sclera anicteric Pupils: Present: PERRL - Neck Neck exam general surgery: Present: supple, trachea midline. Absent: lymphadenopathy - Respiratory Respiratory exam: Present: CTAB. Absent: accessory muscle use, rales, respiratory distress, rhonchi, stridor, wheezes - Cardiovascular Cardiovascular exam: Present: RRR, +S1, +S2. Absent: diastolic murmur, gallop, irregular rhythm, rubs, systolic murmur, tachycardia - GI/Abdominal GI/Abdominal exam: Present: normal bowel sounds, soft, no peritoneal signs. Absent: distended, tenderness - Extremities Exam Extremities exam: Present: warm, radial pulses palpable and symmetrical. Absent : calf tenderness, cyanotic, pedal edema - Neurological Exam Neurological exam: Present: CN II-XII intact, oriented X3, no focal deficits. Absent: pronater drift, facial droop, speech deficit - Skin Skin exam: Present: diaphoretic, intact, normal color, warm. Absent: mottled, pallor Internal Med - H&P Results - Labs CBC & Chem 7: 06/10/17 10:05 06/10/17 10:05 Labs: Short CBC 06/10/17 Range/Units 10:05 WBC 8.2 (4.3-11.1) K/mcL Hgb 15.7 (12.9-16.9) g/dL Hct 46.1 (37.5-50.1) % Plt Count 187 (140-400) K/mcL Neutrophils # 5.1 (1.6-8.9) K/mcL BMP 06/10/17 10:05 Sodium 139 Potassium 4.4 Chloride 105 Carbon Dioxide 29 BUN 9 Creatinine 0.87 Glucose 108 H Calcium 10.0 Cardiac Enzymes 06/10/17 Range/Units 10:05 Troponin I < 0.03 (< 0.04) ng/mL - Impressions ITS Impressions Chest X-Ray 06/10/17 09:55 IMPRESSION: No active cardiopulmonary disease D/ / Cecilio Jean MD / Cecilio Jean MD Interpreting Provider: Cecilio Jean MD
[2017-06-10] MEDS ORDERED: Nitroglycerin 0.4 MG TAB.SUBL SL PRN ×2 (12:38→13:15)
[2017-06-10] MEDS ORDERED: *HR* Dextrose 50 % in Water (Syg) 50 ML SYRINGE IVP PRN (12:39)
[2017-06-10] MEDS ORDERED: D5% in Water 1,000 ML IVC PRN (12:39)
[2017-06-10] MEDS ORDERED: Dextrose Gel 15 GM/37.5 ML TUBE PO PRN ×2 (12:39)
[2017-06-10] MEDS ORDERED: *HR* Heparin 5,000 UNIT/ML VIAL SQ ONE (12:45)
[2017-06-10 14:16] LABS: Hemoglobin A1C 6.4 %
[2017-06-10] MEDS: Insulin LISPRO 300 UNITS/3 ML VIAL SQ SCH (17:53)
[2017-06-11 07:11] VITALS: BP 145/84
[2017-06-11] MEDS: Insulin LISPRO 300 UNITS/3 ML VIAL SQ SCH (08:11)
[2017-06-11] MEDS ORDERED: Cholecalciferol (D-3) 1,000 UNIT TABLET PO SCH (09:00)
[2017-06-11] MEDS ORDERED: Aspirin Enteric Coated 81 MG Tablet PO SCH (09:00)
--- NOTE | 2017-06-11 10:43 | Discharge Summary ---
Date of Encounter: 06/11/17 Time of Encounter: 10:41 - Discharge Diagnosis (1) CAD (coronary artery disease) Priority: Primary Status: Chronic Comments: History of CAD s/p stents both preceeded by atypical symptoms. He denies chest pain but has sob and diaphoresis (similar to previous cardiac event). Recent negative cardiac w/u (May 2017) per admission note No ischemic changes on current ECG Recent cardiac w/u less than one month ago with stress myocardial perfusion test Recent Echo showed normal LVEF 55% with severely dialted LA, mild LV hypertrophy and no significant valvular dz. Continue aspirin, statin and BB Patient did not f/u with cardiology as outpatient after last admission Patient states he is totally back to normal this morning with no chest pain shortness of breath and has no other complaints Troponins negative Will email cardiology contact patient to first the week for follow-up appointment Qualifiers: Coronary Disease-Associated Artery/Lesion type: [place] artery [place] vs. 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 (3) Essential hypertension Priority: Secondary Status: Chronic Comments: Well-controlled with current indication regime (4) History of prostate cancer Priority: Secondary Status: Chronic (5) LILLI on CPAP Priority: Secondary Status: Chronic Comments: Continue CPAP at night (6) Urinary incontinence due to urethral sphincter incompetence Priority: Secondary Status: Chronic - Discharge Medications Home Medications: Aspirin [Adult Low Dose Aspirin EC] 81 mg PO DAILY 05/21/15 [History] Atorvastatin [Lipitor] 40 mg PO HS 05/21/15 [History] Carvedilol 3.125 mg PO DAILY 05/21/15 [History] Cholecalciferol (Vitamin D3) [Vitamin D3] 1,000 unit PO DAILY 05/21/15 [History] Vitamin E 400 unit PO DAILY 05/21/15 [History] metFORMIN [Glucophage] 500 mg PO BID 05/21/15 [History] Nitroglycerin [Nitrostat] 0.4 mg SL AD PRN 11/07/15 [History] Allergies/Adverse Reactions: 3 Allergy/AdvReac Type Severity Reaction Status Date / Time Sulfa (Sulfonamide Allergy Hives Verified 06/10/17 10:13 Antibiotics) Oxycodone AdvReac Dizziness Verified 06/10/17 10:13 Date of admission: 06/10/17 12:18 Primary care physician: Per Fisher MD Discharging clinician: Sparkle Hernandez Anticipated date of discharge: 06/11/17 - Patient Status Disposition: Home, Self-Care Condition: Good Overall status at discharge: patient is back to baseline - Discharge Instructions Follow Up With: Per Fisher MD [Primary Care Provider] - - Diet and Activity Activity: resume usual activities as tolerated Diet: advance to your usual diet, diabetic diet Interval History: Patient resting quietly in bed. He is eating his breakfast. He has no voiced complaints at this time and feels back to his baseline. No further events since admission. Hospital course: 81-year-old man with CAT status post coronary artery stents in 2013 who experienced 2 episodes of acute shortness of breath accompanied by diaphoresis but no chest pain. He stated the symptoms were similar to symptoms at the time of his prior cardiac events. He states he was not under stress or exerting himself when the symptoms occurred. EMS was called and he was brought to the emergency room. Chest x-ray showed no infiltrates or pleural effusions. His EKG did not show acute ischemic changes. Troponins were trended less than 0.03 , BNP was 39 with no signs of CHF. His vital signs were normal with a normal white count. He has not been sick and denied any sore throat, cough, chest pain or pressure, nausea vomiting diarrhea or other symptoms. He is a diabetic but his hemoglobin A1c 6.4l. He denies shortness of breath this morning. He had an echo in May 2017 and myocardial perfusion scan with no significant structural changes except for atrial enlargement. No perfusion deficits were noted on the myocardial perfusion test. 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 He states he will try to follow-up after this admission. Spent some time telling him on [place] was due his follow-up. He did verbalize agreement. - Time Spent with Patient Total time spent providing and/or coordinating discharge services: Less than 30 minutes - Constitutional Vitals: Temp Pulse Resp BP Pulse Ox 98.0 F 69 18 145/84 95 06/11/17 07:04 06/11/17 07:04 06/11/17 07:04 06/11/17 07:04 06/11/17 07:04 General appearance: Present: cooperative, A&O X 3, pleasant, no acute distress, answers questions appropriately. Absent: severe distress - Head Head exam: Present: atraumatic, normocephalic - Eye Eye exam: Present: PERRL, conjuntiva pink, sclera anicteric Pupils: Present: PERRL - Neck Neck exam general surgery: Present: supple, trachea midline. Absent: lymphadenopathy - Respiratory Respiratory exam: Present: CTAB. Absent: accessory muscle use, rales, rhonchi, wheezes - Cardiovascular Cardiovascular exam: Present: RRR, +S1, +S2. Absent: diastolic murmur, gallop, rubs, systolic murmur - GI/Abdominal GI/Abdominal exam: Present: normal bowel sounds, soft, no peritoneal signs. Absent: distended, tenderness - Extremities Exam Extremities exam: Present: warm, radial pulses palpable and symmetrical. Absent : calf tenderness, cyanotic, pedal edema - Neurological Exam Neurological exam: Present: CN II-XII intact, oriented X3, no focal deficits. Absent: pronater drift, facial droop, speech deficit - Skin Skin exam: Present: dry, intact, warm
--- NOTE | 2017-06-12 10:38 | Electrocardiograph Report ---
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
== END 2017-06-11 11:45 | disposition home or self-care (01) ==
LOC: EMEROO 09:49 → 3BNU 09:49
PROVIDERS: ADMIT Internal Medicine Cardiovascular Disease; ATTEND Registered Nurse

== ENCOUNTER 2018-09-06 18:28 | Inpatient (IN) ==
[2018-09-06 20:11] LABS: Basophils % 0.2 %; Eosinophils % 0.1 %; Hematocrit 41.3 % (37.5-50.1); Immature Granulocytes % 0.4 % (0-4); Lymphocytes % 12.7 %; Mean Corpuscular HGB Conc 33.9 g/dL (31.6-35.5); Mean Corpuscular Volume 94.5 fL (83.0-100.0); Mean Platelet Volume 9.8 fL (9.4-12.4); Platelet Count 172 K/mcL (140-400); Red Blood Count 4.37 M/mcL (4.19-5.50); Red Cell Distribution Width 12.4 % (11.5-14.5); Segmented Neutrophils % 77.6 %
[2018-09-06 20:20] LABS: INR 1.2; Prothrombin Time 13.1 Seconds (9.4-12.1)
[2018-09-06 20:23] LABS: Activated Partial Thrombo Time 16.6 Seconds (26.0-36.0)
[2018-09-06] MEDS ORDERED: Isovue-370 500 ML BOTTLE IVP ONE (20:26)
[2018-09-06 20:30] LABS: Lymphocytes # 1.5 K/mcL (0.6-4.6); Neutrophils # 8.9 K/mcL (1.6-8.9)
[2018-09-06 20:32] LABS: Platelet Estimate Normal (Normal)
[2018-09-06 20:34] LABS: BUN/Creatinine Ratio 12 (6-26); Blood Urea Nitrogen 13 mg/dL (8-23); Calcium 9.9 mg/dL (8.6-10.3); Carbon Dioxide 24 mEq/L (23-29); Chloride 97 mEq/L (98-107); Glucose 248 mg/dL (70-105); Osmolality,Calculated 278 (280-300); Potassium 4.3 mEq/L (3.5-5.1); Sodium 130 mEq/L (136-145); Troponin I 0.03 ng/mL (< 0.04); eGFR For Non-African Americans > 60 (> 60)
[2018-09-06] MEDS ORDERED: Aspirin 81 MG TAB.CHEW PO ONE (20:50)
--- NOTE | 2018-09-06 21:11 | Emergency Department Note ---
Disposition Clinical Impression: Chest pain, rule out acute myocardial infarction Dyspnea Qualifiers: Dyspnea type: unspecified Qualified Code(s): R06.00 - Dyspnea, unspecified Disposition: Admitted As Inpatient Condition: Fair Reasons to Return/Additional Instructions: Please follow-up with your primary care provider for continuation of your care. Return to the emergency department if you develop any worsening of your condition or if you develop new concerning symptoms. Referrals: Per Fisher MD [Primary Care Provider] - Forms: ED Satisfaction Letter Time of Disposition: 21:00 SOB HPI - General Chief Complaint: ED Shortness of Breath/Dyspnea Stated Complaint: GUILLE Time Seen by Provider: 09/06/18 19:06 Source: patient Mode of arrival: ambulatory Limitations: no limitations Nursing Notes Reviewed: Yes Vital Signs Reviewed: Yes - History of Present Illness 83-year-old male presents emergency Department with shortness of breath. Pat ient states symptoms have been present with exertion over past 2-3 days. Today was especially worse. Patient felt near syncopal but did not syncopized. He reports a history of cardiac disease with [address] Patient reports symptoms improved with rest. This is similar to his previous chest pain that required stenting although it is different in that it has less lightheadedness. No chest pain in the emergency department. - Related Data Home Medications Medication Instructions Recorded Confirmed Aspirin [Adult Low Dose Aspirin EC] 81 mg PO DAILY 05/21/15 09/06/18 Atorvastatin [Lipitor] 40 mg PO HS 05/21/15 09/06/18 Carvedilol 3.125 mg PO DAILY 05/21/15 09/06/18 Cholecalciferol (Vitamin D3) 1,000 unit PO DAILY 05/21/15 09/06/18 [Vitamin D3] Vitamin E 400 unit PO DAILY 05/21/15 09/06/18 metFORMIN [Glucophage] 500 mg PO BID 05/21/15 09/06/18 Nitroglycerin [Nitrostat] 0.4 mg SL AD PRN 11/07/15 09/06/18 Allergies Allergy/AdvReac Type Severity Reaction Status Date / Time Sulfa (Sulfonamide Allergy Hives Verified 09/06/18 19:20 Antibiotics) oxycodone [Oxycodone] AdvReac Dizziness Verified 09/06/18 19:20 All systems ED: reviewed and negative except as stated. Review of Systems: As Per HPI Past Medical History - Past Medical History Attestation: Yes The following information was validated with the patient. Source: patient Medical history: Reports: arthritis, atrial fibrillation, cancer, coronary artery disease, diabetes, hyperlipidemia, hypertension, other Surgical history: Reports: angioplasty/stent, prostatectomy Psychiatric history: Reports: no psych history - Social History Smoking Status: Never smoker Smokeless Tobacco Status: No Alcohol use: Reports: occasionally Drug use: Reports: none Physical Exam General: Alert and in no acute distress Skin: Warm, dry, intact Head: Normocephalic and atraumatic Neck: Supple, trachea midline and no tenderness Cardiovascular: RRR, no murmur, normal perfusion Respiratory: CTAB, no wheezing, cough, or respiratory distress Musculoskeletal: Normal strength, no tenderness, swelling or deformity GI: Soft, nontender, nondistended. Bowel sounds present Neuro: A&O to person, place, time and situation. No focal deficits noted on exam Psychiatric: cooperative and appropriate mood and affect. - General General appearance: alert, in no apparent distress Course Vital Signs Temperature 98.1 F 09/06/18 18:30 Pulse Rate 92 09/06/18 18:30 Respiratory Rate 20 09/06/18 18:30 Blood Pressure 152/74 09/06/18 18:30 O2 Sat by Pulse Oximetry 96 09/06/18 18:30 Temperature 98.1 F 09/06/18 18:30 Pulse Rate 90 09/06/18 20:30 Respiratory Rate 24 09/06/18 20:30 Blood Pressure 132/77 09/06/18 20:30 O2 Sat by Pulse Oximetry 94 09/06/18 20:30 Oxygen Delivery Oxygen Delivery Room Air Shortness of Breath/Dyspnea - MDM Narrative Medical decision making narrative: Initial troponin negative. D-dimer elevated. CTA negative for acute PE. Patient will be admitted to the hospitalist for further care and evaluation. - Medical Records Medical records reviewed: Yes I reviewed the patient's medical records. - Lab Data Lab results reviewed: Yes I reviewed the patient's lab results. Result diagrams: 09/06/18 19:54 09/06/18 19:54 Lab Results 09/06/18 09/06/18 09/06/18 Range/Units 19:54 19:54 19:54 WBC 11.4 H (4.3-11.1) K/mcL RBC 4.37 (4.19-5.50) M/mcL Hgb 14.0 (12.9-16.9) g/dL Hct 41.3 (37.5-50.1) % MCV 94.5 (83.0-100.0) fL MCH 32.0 (28.0-33.3) pg MCHC 33.9 (31.6-35.5) g/dL RDW 12.4 (11.5-14.5) % Plt Count 172 (140-400) K/mcL MPV 9.8 (9.4-12.4) fL Immature Gran % 0.4 (0-4) % Seg Neutrophils % 77.6 % Lymphocytes % 12.7 % Monocytes % 9.0 % Eosinophils % 0.1 % Basophils % 0.2 % Neutrophils # 8.9 (1.6-8.9) K/mcL Lymphocytes # 1.5 (0.6-4.6) K/mcL Monocytes # 1.0 (0.0-1.3) K/mcL Eosinophils # 0.0 (0.0-0.6) K/mcL Basophils # 0.0 (0.0-0.2) K/mcL Platelet Estimate Normal (Normal) PT 13.1 H (9.4-12.1) Seconds INR 1.2 APTT 16.6 L (26.0-36.0) Seconds D-Dimer 812 H (0-500) ng/mLFEU Sodium 130 L (136-145) mEq/L Potassium 4.3 (3.5-5.1) mEq/L Chloride 97 L (98-107) mEq/L Carbon Dioxide 24 (23-29) mEq/L BUN 13 (8-23) mg/dL Creatinine 1.07 (0.70-1.30) mg/dL Est GFR ( Amer) > 60 (> 60) Est GFR (Non-Af Amer) > 60 (> 60) BUN/Creatinine Ratio 12 (6-26) Glucose 248 H (70-105) mg/dL Calculated Osmolality 278 L (280-300) Lactic Acid (0.5-2.2) mmol/L Calcium 9.9 (8.6-10.3) mg/dL Troponin I 0.03 (< 0.04) ng/mL B-Natriuretic Peptide (Less than 100) pg/mL 09/06/18 09/06/18 Range/Units 19:54 19:54 WBC (4.3-11.1) K/mcL RBC (4.19-5.50) M/mcL Hgb (12.9-16.9) g/dL Hct (37.5-50.1) % MCV (83.0-100.0) fL MCH (28.0-33.3) pg MCHC (31.6-35.5) g/dL RDW (11.5-14.5) % Plt Count (140-400) K/mcL MPV (9.4-12.4) fL Immature Gran % (0-4) % Seg Neutrophils % % Lymphocytes % % Monocytes % % Eosinophils % % Basophils % % Neutrophils # (1.6-8.9) K/mcL Lymphocytes # (0.6-4.6) K/mcL Monocytes # (0.0-1.3) K/mcL Eosinophils # (0.0-0.6) K/mcL Basophils # (0.0-0.2) K/mcL Platelet Estimate (Normal) PT (9.4-12.1) Seconds INR APTT (26.0-36.0) Seconds D-Dimer (0-500) ng/mLFEU Sodium (136-145) mEq/L Potassium (3.5-5.1) mEq/L Chloride (98-107) mEq/L Carbon Dioxide (23-29) mEq/L BUN (8-23) mg/dL Creatinine (0.70-1.30) mg/dL Est GFR ( Amer) (> 60) Est GFR (Non-Af Amer) (> 60) BUN/Creatinine Ratio (6-26) Glucose (70-105) mg/dL Calculated Osmolality (280-300) Lactic Acid 2.0 (0.5-2.2) mmol/L Calcium (8.6-10.3) mg/dL Troponin I (< 0.04) ng/mL B-Natriuretic Peptide 149 H (Less than 100) pg/mL - Radiology Data Radiology results reviewed: Yes I reviewed the patient's radiology results. - EKG Data EKG attestation: Yes I reviewed and interpreted this EKG. EKG results narrative: Normal sinus rhythm with a rate of 92 without evidence of STEMI or other dysrhythmia.
[2018-09-07] MEDS ORDERED: Acetaminophen 325 MG TABLET PO PRN (02:33)
[2018-09-07] MEDS ORDERED: Naloxone 0.4 MG/ML INJ IVP PRN (02:42)
[2018-09-07] MEDS: Ibuprofen 600 MG TABLET PO PRN ×2 (02:43→16:11)
[2018-09-07] MEDS ORDERED: Dextrose Gel 15 GM/37.5 ML TUBE PO PRN ×2 (02:47)
[2018-09-07] MEDS ORDERED: *HR* Dextrose 50 % in Water (Syg) 50 ML SYRINGE IVP PRN (02:47)
[2018-09-07] MEDS: Levalbuterol Neb 1.25 MG/3 ML IH SCH ×6 (03:24→22:20)
[2018-09-07 03:29] LABS: Adenovirus Not Detected (Not Detect); Bordetella Pertussis Not Detected (Not Detect); Chlamydophila pneumoniae Not Detected (Not Detect); Coronavirus 229E Not Detected (Not Detect); Coronavirus HKU1 Not Detected (Not Detect); Coronavirus NL63 Not Detected (Not Detect); Coronavirus OC43 Not Detected (Not Detect); Human Metapneumovirus Not Detected (Not Detect); Human Rhinovirus/Enterovirus Not Detected (Not Detect); Influenza A Subtype 2009 H1 Not Detected (Not Detect); Influenza A Untypeable Not Detected (Not Detect); Influenza B Not Detected (Not Detect); Mycoplasma pneumoniae Not Detected (Not Detect); Parainfluenza Virus 1 Not Detected (Not Detect); Parainfluenza Virus 2 Not Detected (Not Detect); Parainfluenza Virus 3 Not Detected (Not Detect); Parainfluenza Virus 4 Not Detected (Not Detect); Respiratory Syncytial Virus Not Detected (Not Detect)
--- NOTE | 2018-09-07 03:34 | Internal Med History&Physical ---
Date of Encounter: 09/07/18 Time of Encounter: 02:00 Internal Medicine - H&P: HPI Chief complaint: SOB/Cough Admitted From: Emergency Dept Plans for Post Hospital Care: Home History of present illness: Mr. Aguilar is a 83 year old male w/PMH of arthritis, atrial fibrillation, cancer, CAD, diabetes, HLD, and HTN presents from the ED with chief complaint of shortness of breath and cough over the past week. Patient states symptoms have become progressively worse. Patient reports chest discomfort due to cough. Patient has previous cardiac history with stent placement 2 however he states he has been sick over the past week with fever, nausea, and vomiting. Pt. denies knowledge of sick contacts, but states he gets together with friends for activities and is unsure if any are sick. During exam, pt. is under several blankets and states he is freezing and feels as though he has a fever. Temp found to be 102.9. Chest CTA done to r/o PE which was negative but showed bibasilar airspace disease from atelectasis versus pneumonia. Pt. has WBC of 11.4 on admission. ED clinical impression for chest pain and to r/o MD. Differential suspicion is infective process w/CP d/t coughing, leukocytosis, fever, N/V. Sx also complicated by elevated BNP (149) and D-dimer (812). No formal dx of CHF, however echocardiogram dated shows LVEF of 55%, mild concentric left ventricular hypertrophy, mild left ventricular diastolic dysfunction, mild mitral regurgitation, and no pulmonary hypertension. Pt. reports headache and chronic constipation but denies changes in vision, headache, unusual bleeding, abdominal pain, diarrhea, numbness, tingling, dizziness, lightheadedness, pre-syncope, or syncope. Past Med Surg Social Fam HX - Past Medical History Source: patient, old records reviewed Medical history: arthritis, atrial fibrillation, cancer, coronary artery disease, diabetes, hyperlipidemia, hypertension, other Additional medical history: Prostate cancer Psychiatric history: no psych history - Past Surgical History Surgical History: angioplasty/stent (x2), prostatectomy Additional surgical history: 2008, 2013 heart cath with stent x 2. prostatectomy - Social History Smoking Status: Never smoker Smokeless Tobacco Status: No Alcohol use: occasionally Drug use: none Current living situation: Home Activity Level: Independent ambulation Recent Out of Country Travel Within the Last 8 Weeks: No Exposure or Possible Exposure to Illness During Travel: No - Family History Mother Race: Family Member Ethnicity: Non- Living Status: Age at : 72 Cause of : Car wreck Hx Family Cardiac Disorders: Yes (HTN, HLD, CAD) Hx Family Endocrine Disorder: Yes (DM) Father Race: Family Member Ethnicity: Non- Living Status: Age at : 74 Cause of : Car wreck Hx Family Cardiac Disorders: Yes (CAD) Brother Race: Family Member Ethnicity: Non- Living Status: Age at : 70 Cause of : HD Hx Family Cardiac Disorders: Yes (HD, Heart murmur) Internal Medicine - H&P: Meds Aspirin [Adult Low Dose Aspirin EC] 81 mg PO DAILY 05/21/15 [History] Atorvastatin [Lipitor] 40 mg PO HS 05/21/15 [History] Carvedilol 3.125 mg PO DAILY 05/21/15 [History] Cholecalciferol (Vitamin D3) [Vitamin D3] 1,000 unit PO DAILY 05/21/15 [History] Vitamin E 400 unit PO DAILY 05/21/15 [History] metFORMIN [Glucophage] 500 mg PO BID 05/21/15 [History] Nitroglycerin [Nitrostat] 0.4 mg SL AD PRN 11/07/15 [History] Allergy/AdvReac Type Severity Reaction Status Date / Time Sulfa (Sulfonamide Allergy Hives Verified 09/06/18 19:20 Antibiotics) oxycodone [Oxycodone] AdvReac Dizziness Verified 09/06/18 19:20 All Systems PM: A 10-system review of systems was performed and is negative for pertinent findings except as documented above in the HPI. - Constitutional Constitutional: as per HPI, chills, fever(s), weakness, no night sweats - EENT Eyes: no change in vision, no discharge, no pain, no photophobia Ears: no ear discharge, no ear pain, no tinnitus Nose, mouth and throat: no dysphagia, no nasal discharge, no neck pain, no sore throat - Breasts Breasts: as per HPI - Cardiovascular Cardiovascular ROS IM: as per HPI, chest pain, dyspnea, dyspnea on exertion, no diaphoresis, no lightheadedness, no palpitations, no syncope - Respiratory Respiratory: as per HPI, cough, dyspnea, dyspnea on exertion, pain with cough, no wheezing, no excessive phlegm production - Gastrointestinal Gastrointestinal: as per HPI, constipation, nausea, vomiting, no abdominal pain, no diarrhea, no hematemesis, no hematochezia, no melena - Genitourinary Genitourinary ROS male: as per HPI - Musculoskeletal Musculoskeletal ROS IM: as per HPI, no numbness, no tingling - Integumentary Integumentary IM: no rash, no unusual bruising - Neurological Neurological ROS: as per HPI, weakness, no confusion, no convulsions, no focal weakness, no numbness, no tingling, no tremor(s) - Psychiatric Psychiatric: as per HPI - Endocrine Endocrine IM: as per HPI - Hematologic/Lymphatic Hematologic/Lymphatic: no easy bruising - Allergic/Immunologic Allergic/Immunologic: as per HPI - Constitutional Vitals: Temp Pulse Resp BP Pulse Ox 102 F H 85 18 132/61 91 09/07/18 03:08 09/07/18 03:08 09/07/18 03:08 09/07/18 03:08 09/07/18 03:08 General appearance: Present: cooperative, mild distress (Chills, fever), A&O X 3, pleasant, answers questions appropriately Exam: Patient examined at bedside. Pt. under several blankets and stating that he is freezing. Pt. also states he feels as though he has a fever. Temp 102.9 at this time. WBC 11.4. Cough and nausea present. Pt. states he has cardiac hx but his chest pain feels pleuritic from coughing. Denies vomiting or any other sx at this time. VS: temp 102.9F, HR 81, RR 16, BP 129/72, and SPO2 93% on room air. - Head Head exam: Present: atraumatic, normocephalic - Eye Eye exam: Present: PERRL, conjuntiva pink, sclera anicteric Pupils: Present: PERRL - ENT ENT exam: Present: normal exam - Neck Neck exam general surgery: Present: normal inspection, supple, trachea midline. Absent: lymphadenopathy - Respiratory Respiratory exam: Present: CTAB. Absent: accessory muscle use, rales, rhonchi, wheezes - Cardiovascular Cardiovascular exam: Present: RRR, +S1, +S2. Absent: diastolic murmur, gallop, rubs, systolic murmur - GI/Abdominal GI/Abdominal exam: Present: normal bowel sounds, soft, no peritoneal signs. Absent: distended, tenderness - Rectal Rectal exam: Present: deferred - Additional comments: exam deferred. - Extremities Exam Extremities exam: Present: pedal edema, warm, radial pulses palpable and symmetrical. Absent: calf tenderness, cyanotic - Back Exam Back exam: Present: normal inspection - Neurological Exam Neurological exam: Present: alert, CN II-XII intact, oriented X3, no focal deficits. Absent: pronater drift, facial droop, speech deficit - Psychiatric Psychiatric exam: Present: anxious - Skin Skin exam: Present: dry, intact Internal Med - H&P Results - Labs CBC & Chem 7: 09/07/18 03:25 09/07/18 03:25 Labs: Short CBC 09/06/18 Range/Units 19:54 WBC 11.4 H (4.3-11.1) K/mcL Hgb 14.0 (12.9-16.9) g/dL Hct 41.3 (37.5-50.1) % Plt Count 172 (140-400) K/mcL Neutrophils # 8.9 (1.6-8.9) K/mcL BMP 09/06/18 19:54 Sodium 130 L Potassium 4.3 Chloride 97 L Carbon Dioxide 24 BUN 13 Creatinine 1.07 Glucose 248 H Calcium 9.9 Cardiac Enzymes 09/06/18 Range/Units 19:54 Troponin I 0.03 (< 0.04) ng/mL - EKG Data EKG shows normal: sinus rhythm - EKG Data Prior EKG available for review: no EKG comments: 09/07/18 03:48 EKG dated 09/06/18 shows sinus rhythm with multiform ventricular premature complexes, abnormal R-wave progression in late transition, left ventricular hypertrophy, and nonspecific T abnormality in anterolateral leads. - Impressions ITS Impressions Chest X-Ray 09/06/18 19:24 IMPRESSION: Stable portable study. D/ / Hawa Castañeda Cha, MD / Hawa Castañeda Cha, MD Interpreting Provider: Hawa Castañeda Cha, MD Chest CTA 09/06/18 20:26 IMPRESSION: No evidence pulmonary embolism. Bibasilar airspace disease, atelectasis or pneumonia. 8 mm irregular posterior right lower lobe noncalcified nodule, new since the prior study April 2011. See below recommendation. RECOMMENDATIONS: 8.0 mm solid suspicious pulmonary nodule. Recommend a non-contrast Chest CT at 6-12 months, then consider an additional non-contrast Chest CT at 18-24 months. These guidelines do not apply to patients younger than 35 years, immunocompromised patients, and patients with cancer. Follow up in patients with significant comorbidities as clinically warranted. For lung cancer screening, adhere to Lung-RADS guidelines. Reference: Radiology. 2017; 284(1):228-43. D/ / Hawa Castañeda Cha, MD / Hawa Castañeda Cha, MD Interpreting Provider: Hawa Castañeda Cha, MD - Diagnostic Studies Chest x-ray Additional comments: Impressions Chest X-Ray 09/06/18 19:24 IMPRESSION: Stable portable study. D/ / Hawa Castañeda Cha, MD / Hawa Castañeda Cha, MD Interpreting Provider: Hawa Castañeda Cha, MD CT scan - chest Additional comments: Impressions Chest CTA 09/06/18 20:26 IMPRESSION: No evidence pulmonary embolism. Bibasilar airspace disease, atelectasis or pneumonia. 8 mm irregular posterior right lower lobe noncalcified nodule, new since the prior study April 2011. See below recommendation. RECOMMENDATIONS: 8.0 mm solid suspicious pulmonary nodule. Recommend a non-contrast Chest CT at 6-12 months, then consider an additional non-contrast Chest CT at 18-24 months. These guidelines do not apply to patients younger than 35 years, immunocompromised patients, and patients with cancer. Follow up in patients with significant comorbidities as clinically warranted. For lung cancer screening, adhere to Lung-RADS guidelines. Reference: Radiology. 2017; 284(1):228-43. D/ / Hawa Castañeda Cha, MD / Hawa Castañeda Cha, MD Interpreting Provider: Hawa Castañeda Cha, MD - Assessment and Plan (1) Chest pain Current Visit: Yes Status: Acute Assessment and plan: Acute CP that occurred several days ago accompanied by SOB, nausea, vomiting, and fever. Pt. states he has not felt well for the past week. Hx of [facility] w/stents x2. Last echocardiogram dated 04/29/17 shows LVEF of 55%, mild concentric left ventricular hypertrophy, mild left ventricular diastolic dysfunction, dilated RV with normal function, mild mitral regurgitation, and no pulmonary hypertension. CTA of chest shows no PE but bibasilar airspace disease, atelectasis versus pneumonia. 8mm irregular posterior right lower lobe noncalcified nodule new since prior studies April 2011 with recommendation of a noncontrast follow-up chest CT at 6-12 months with additional noncontrast chest CT at 18-24 months. Cough present. Pt. reports CP worsens w/coughing. Initial troponin <0.03. Second troponin 0.04. awaiting third result. ASA. 80 mg Lipitor once. SL nitro PRN. Echocardiogram. Simultaneous infectious etiology r/o versus cardiac etiology. Last stress test in 10/05/17. Consider cardiology consult if troponins continue to trend upward and/or echocardiogram results abnormal. Patient is high risk for further morbidity and cardiac event based on current CP sx, previous [facility] w/stent placement x2, and risk factors: DM, HLD, HTN, CAD. Observation. Qualifiers: Chest pain type: other chest pain Qualified Code(s): R07.89 - Other chest pain; R07.8 - Other chest pain (2) Sepsis Current Visit: Yes Status: Acute Assessment and plan: Acute sepsis criteria on admission w/WBC of 11.4, temp of 102.9, suspicious CTA of chest for pneumonia versus atelectasis. Lactic acid 2.0 on admission. 1.1 on repeat. Blood cultures x2 ordered. Legionella and strep pneumoniae antigens ordered. Respiratory infection panel negative. Pt. has not received IV fluids. Consider fluids if lactic becomes elevated. Ibuprofen and Tylenol to be alternated for fever control. A.M. team to determine abx coverage d/t timing of admission and testing. Monitor pt. and f/u labs closely. Qualifiers: Sepsis type: sepsis due to unspecified organism Qualified Code(s): A41.9 - Sepsis, unspecified organism (3) D-dimer, elevated Current Visit: Yes Status: Acute Assessment and plan: Acutely elevated D-dimer of 812 on admission. CTA negative for PE. Bilateral Dopplers of the LEs ordered to r/o DVTs. SQ heparin ordered for DVT prophylaxis. (4) Cough Current Visit: Yes Status: Acute Assessment and plan: Acute cough for the past week. Non-productive. Pt. states CP worsens w/cough. Xopenex IH 1.25 Q6HR. Mucinex for cough. Respiratory Infection panel negative. (5) SOB (shortness of breath) Current Visit: Yes Status: Acute Assessment and plan: Acute SOB over the past week. Pt. denies home O2 use. No CHF or COPD dxs. Supplemental O2 w/titration and SpO2 monitoring. Xopenex IH 1.25 Q6HR. Mucinex for cough. Falls/safety precautions. Up with assist only. (6) Nausea & vomiting Current Visit: Yes Status: Acute Assessment and plan: Acute nausea and vomiting for the past week. Last vomiting yesterday. Phenergan 12.5 mg IVP every 6 hour when necessary for nausea and vomiting. Qualifiers: Vomiting type: cyclical vomiting Qualified Code(s): G43.A0 - Cyclical vomiting, not intractable (7) Diabetes Current Visit: Yes Status: Chronic Assessment and plan: Hx of chronic diabetes controlled w/oral anti-hyperglycemics. Hold patient's Glucophage and low-dose sliding scale insulin with hypoglycemic protocol ordered. A1c in a.m. labs. BG checks before meals at bedtime. 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 Pt. in SR on admission. Continuous cardiac telemetry. Monitor. (9) CAD (coronary artery disease) Current Visit: Yes Status: Chronic Assessment and plan: Hx of chronic CAD. Previous heart catheterization in 2013 with stent placement 2. HLD. HTN. DM. Continuous cardiac telemetry. Previous echocardiogram on 04/29/17 shows LVEF of 55%, mild concentric left ventricular hypertrophy, mild left ventricular diastolic dysfunction, dilated RV with normal function, mild mitral regurgitation, and no pulmonary hypertension. Echocardiogram ordered. Qualifiers: Coronary Disease-Associated Artery/Lesion type: [place] artery [place] vs. transplanted heart: [place] heart Associated angina: without angina Qualified Code(s): I25.10 - Atherosclerotic heart disease of [place] coronary artery without angina pectoris (10) HLD (hyperlipidemia) Current Visit: Yes Status: Chronic Assessment and plan: Hx of chronic HLD. Lipid panel in a.m. labs. Continue pts. Lipitor. Qualifiers: Hyperlipidemia type: pure hypercholesterolemia Qualified Code(s): E78.00 - Pure hypercholesterolemia, unspecified; E78.0 - Pure hypercholesterolemia (11) HTN (hypertension) Current Visit: Yes Status: Chronic Assessment and plan: Hx of chronic HTN. Monitor pt. and VS. Continue patient's carvedilol. Qualifiers: Hypertension type: essential hypertension Qualified Code(s): I10 - Essential (primary) hypertension (12) DVT prophylaxis Current Visit: Yes Status: Acute Assessment and plan: Heparin 5,000 units SQ every 12 hours for DVT prophylaxis. Monitor patient for signs of bleeding. - Time Spent With Patient Total time spent is greater than 50% in coordination of care (as documented) at patient's floor/unit and/or counseling patient: Greater than 35 minutes
[2018-09-07 03:38] LABS: Hematocrit 40.1 % (37.5-50.1); Hemoglobin 13.8 g/dL (12.9-16.9); Mean Corpuscular HGB Conc 34.4 g/dL (31.6-35.5); Mean Corpuscular Hemoglobin 31.9 pg (28.0-33.3); Mean Corpuscular Volume 92.8 fL (83.0-100.0); Mean Platelet Volume 8.7 fL (9.4-12.4); Platelet Count 197 K/mcL (140-400); Red Blood Count 4.32 M/mcL (4.19-5.50); Red Cell Distribution Width 12.4 % (11.5-14.5)
[2018-09-07] MEDS ORDERED: D5% in Water 1,000 ML IVC PRN (03:38)
[2018-09-07] MEDS ORDERED: Nitroglycerin 0.4 MG TAB.SUBL SL PRN ×2 (03:40→15:29)
[2018-09-07] MEDS ORDERED: *HR* Promethazine 25 MG/ML VIAL IVP PRN (03:41)
[2018-09-07 03:57] LABS: BUN/Creatinine Ratio 13 (6-26); Blood Urea Nitrogen 13 mg/dL (8-23); Calcium 9.1 mg/dL (8.6-10.3); Carbon Dioxide 21 mEq/L (23-29); Chloride 101 mEq/L (98-107); Chol/HDL Ratio 2.4 (0-4.9); Cholesterol 98 mg/dL (< 200); Glucose 182 mg/dL (70-105); HDL Cholesterol 41 mg/dL (40-59); LDL Cholesterol,Calculated 38 mg/dL (0-99); Magnesium 1.9 mg/dL (1.6-2.6); Osmolality,Calculated 279 (280-300); Potassium 3.9 mEq/L (3.5-5.1); Sodium 132 mEq/L (136-145); Triglycerides 94 mg/dL (< 150); eGFR For Non-African Americans > 60 (> 60)
[2018-09-07] MEDS: Insulin LISPRO 300 UNITS/3 ML VIAL SQ SCH ×5 (04:21→20:56)
[2018-09-07 04:38] LABS: Bilirubin,Urine Negative (Negative); Blood,Urine Small (Negative); Clarity,Urine Cloudy (Clear); Color,Urine Yellow (Yellow); Glucose,Urine (UA) Normal (Normal); Ketones,Urine Trace mg/dL (Negative); Leukocyte Esterase,Urine Large (Negative); Nitrite,Urine Positive (Negative); Protein,Urine 100 mg/dL (Neg-Trace); Specific Gravity,Urine > 1.030 (1.010-1.025); Urobilinogen,Urine Normal (Normal)
[2018-09-07 04:41] LABS: Bacteria,Urine Few per hpf (None-Few); Hyaline Casts,Urine None Seen per lpf (None-Few); Squamous Epithelial Cell,Urine Many per lpf (None-Few); WBC,Urine TNTC per hpf (0-3)
[2018-09-07 04:47] LABS: RBC,Urine 0-3 per hpf (0-3); Yeast,Urine Few per hpf (None Seen)
[2018-09-07] MEDS: *HR* Heparin 5,000 UNIT/ML VIAL SQ SCH ×2 (05:34→16:12)
[2018-09-07 05:36] LABS: Estimated Average Glucose 166 mg/dl; Hemoglobin A1C 7.4 %
--- NOTE | 2018-09-07 11:36 | Electrocardiograph Report ---
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
[2018-09-07] MEDS: cefTRIAXone 1,000 MG in Water for inj. (sterile) 20 ML 10 ML IVP SCH (11:37)
[2018-09-07] MEDS: Cholecalciferol (D-3) 1,000 UNIT TABLET PO SCH (11:38)
--- NOTE | 2018-09-07 11:46 | Electrocardiograph Report ---
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
--- NOTE | 2018-09-07 13:38 | Event Note ---
Date of Encounter: 09/07/18 Time of Encounter: 13:38 Patient was seen and examined per hospitalist services earlier this morning. He was admitted after experiencing increasing shortness of breath cough over the past week as well as weakness with subjective fevers and nausea. He did have a temperature on presentation as well as a white count. Urinalysis did show UTI she had elevated d-dimer CTA was completed with no PE bibasilar airspace disease atelectasis/or pneumonia lower extremity venous duplex was completed which did show right lesser saphenous vein acute thrombus. We will continue with daily aspirin lower extremities are not swollen or tender to touch. Continue to monitor closely
[2018-09-08 02:00] LABS: Hematocrit 41.6 % (37.5-50.1); Hemoglobin 14.1 g/dL (12.9-16.9); Mean Corpuscular HGB Conc 33.9 g/dL (31.6-35.5); Mean Corpuscular Hemoglobin 32.5 pg (28.0-33.3); Mean Corpuscular Volume 95.9 fL (83.0-100.0); Mean Platelet Volume 9.4 fL (9.4-12.4); Platelet Count 215 K/mcL (140-400); Red Blood Count 4.34 M/mcL (4.19-5.50); Red Cell Distribution Width 12.6 % (11.5-14.5)
[2018-09-08 02:15] LABS: BUN/Creatinine Ratio 17 (6-26); Blood Urea Nitrogen 19 mg/dL (8-23); Calcium 10.1 mg/dL (8.6-10.3); Carbon Dioxide 27 mEq/L (23-29); Chloride 100 mEq/L (98-107); Glucose 168 mg/dL (70-105); Osmolality,Calculated 286 (280-300); Potassium 4.1 mEq/L (3.5-5.1); Sodium 135 mEq/L (136-145); eGFR For Non-African Americans > 60 (> 60)
[2018-09-08] MEDS: Levalbuterol Neb 1.25 MG/3 ML IH SCH ×4 (04:03→22:23)
[2018-09-08] MEDS: *HR* Heparin 5,000 UNIT/ML VIAL SQ SCH ×2 (05:18→17:26)
[2018-09-08] MEDS: Cholecalciferol (D-3) 1,000 UNIT TABLET PO SCH (07:58)
[2018-09-08] MEDS: Aspirin 81 MG TAB.CHEW PO SCH (07:59)
[2018-09-08] MEDS: cefTRIAXone 1,000 MG in Water for inj. (sterile) 20 ML 10 ML IVP SCH (08:00)
[2018-09-08] MEDS: Insulin LISPRO 300 UNITS/3 ML VIAL SQ SCH ×4 (08:01→21:20)
--- NOTE | 2018-09-08 18:42 | Internal Med Progress Note ---
Hospitalist Progress Note - Encounter Date of Encounter: 09/08/18 Time of Encounter: 09:00 - Subjective Interval History: Patient was seen and examined earlier this morning states that he feels much better-he did express some weakness with he was at home we will have PT OT evaluate patient - Exam Vitals: Temp Pulse Resp BP Pulse Ox 98.5 F 73 13 123/58 95 09/08/18 16:00 09/08/18 16:00 09/08/18 16:00 09/08/18 16:00 09/08/18 16:00 Exam: Skin: Free of rash and discoloration. Eyes: Sclera is white. There is no discharge from eyes. ENMT: Oral/pharyngeal mucosa is normal in appearance. There is no discharge from nose or ears. Respiratory: Normal breath sounds with no crackles and wheezes bilaterally. CV: Heart is regular with no gallop or murmur. GI: Abdomen is flat and soft with no palpable mass or visceromegaly. : There is no tenderness in patient's flanks bilaterally. Neuro exam: He has good strength in upper and lower extremities. He has normal eye movements. Psychiatric: He has normal affect. His thought process is appropriate to the situation. - Assessment and Plan (1) Chest pain Current Visit: Yes Status: Acute Assessment and Plan: Complaints of chest pain with cough Troponins have been fine adynamic Cardiac echo Impressions: LVEF 55%. Asymmetric basal septal hypertrophy without LVOT obstruction. Mild left ventricular diastolic dysfunction. Normal right ventricular structure and function. Mild aortic regurgitation. No pulmonary hypertension. (2) CAD (coronary artery disease) Current Visit: Yes Status: Chronic Assessment and Plan: Hx of chronic CAD. Previous heart catheterization in 2013 with stent placement 2. HLD. HTN. DM. Continuous cardiac telemetry. Previous echocardiogram on 04/29/17 shows LVEF of 55%, mild concentric left ventricular hypertrophy, mild left ventricular diastolic dysfunction, dilated RV with normal function, mild mitral regurgitation, and no pulmonary hypertension. Echocardiogram Impressions: LVEF 55%. Asymmetric basal septal hypertrophy without LVOT obstruction. Mild left ventricular diastolic dysfunction. Normal right ventricular structure and function. Mild aortic regurgitation. No pulmonary hypertension. (3) Sepsis Current Visit: Yes Status: Acute Assessment and Plan: Acute sepsis criteria on admission w/WBC of 11.4, temp of 102.9, suspicious CTA of chest for pneumonia versus atelectasis. Lactic acid 2.0 on admission. 1.1 on repeat. Blood cultures x2 ordered. Legionella and strep pneumoniae antigens negative. Respiratory infection panel negative. Urinalysis indicative of UTI urine culture gram-negative rods Continue Rocephin (4) SOB (shortness of breath) Current Visit: Yes Status: Acute Assessment and Plan: Acute SOB over the past week. Pt. denies home O2 use. No CHF or COPD dxs. Supplemental O2 w/titration and SpO2 monitoring. Xopenex IH 1.25 Q6HR. Mucinex for cough. Falls/safety precautions. Up with assist only. Titrating oxygen to room air (5) Nausea & vomiting Current Visit: Yes Status: Acute Assessment and Plan: Acute nausea and vomiting for the past week. No vomiting since admitted. Phenergan 12.5 mg IVP every 6 hour when necessary for nausea and vomiting. (6) Diabetes Current Visit: Yes Status: Chronic Assessment and Plan: Hx of chronic diabetes controlled w/oral anti-hyperglycemics. Hold patient's Glucophage and low-dose sliding scale insulin with hypoglycemic protocol ord ered. A1c 7.4 . BG checks before meals at bedtime. (7) Hx of atrial fibrillation without current medication Current Visit: Yes Status: Chronic Assessment and Plan: Hx of chronic paroxysmal Afib w/o medication. Pt. in SR on admission. Continuous cardiac telemetry. Monitor. (8) HLD (hyperlipidemia) Current Visit: Yes Status: Chronic Assessment and Plan: Hx of chronic HLD.Continue pts. Lipitor. (9) HTN (hypertension) Current Visit: Yes Status: Chronic Assessment and Plan: Hx of chronic HTN. Monitor pt. and VS. Continue patient's carvedilol. (10) DVT prophylaxis Current Visit: Yes Status: Acute Assessment and Plan: Heparin 5,000 units SQ every 12 hours for DVT prophylaxis. Monitor patient for signs of bleeding. (11) Cough Current Visit: Yes Status: Acute Assessment and Plan: Acute cough for the past week. Non-productive. Pt. states CP worsens w/cough. Xopenex IH 1.25 Q6HR. Mucinex for cough. Respiratory Infection panel negative. (12) D-dimer, elevated Current Visit: Yes Status: Acute Assessment and Plan: Acutely elevated D-dimer of 812 on admission. CTA negative for PE. Bilateral Dopplers of the LEs ordered to r/o DVTs. SQ heparin ordered for DVT prophylaxis. - Time Spent with Patient Total time spent is greater than 50% in coordination of care (as documented) at patient's floor/unit and/or counseling patient: Internal Medicine: Result - Labs CBC & Chem 7: 09/08/18 00:40 09/08/18 00:40 Labs: Short CBC 09/08/18 Range/Units 00:40 WBC 8.8 (4.3-11.1) K/mcL Hgb 14.1 (12.9-16.9) g/dL Hct 41.6 (37.5-50.1) % Plt Count 215 (140-400) K/mcL BMP 09/08/18 00:40 Sodium 135 L Potassium 4.1 Chloride 100 Carbon Dioxide 27 BUN 19 Creatinine 1.12 Glucose 168 H Calcium 10.1 - ABG Interpretation ABG results: PT/INR, D-dimer PT 13.1 Seconds (9.4-12.1) H 09/06/18 19:54 812 ng/mLFEU (0-500) H 09/06/18 19:54 Consult Discharge Plan - Plan Additional Instructions: Please follow-up with your primary care provider for continuation of your care. Return to the emergency department if you develop any worsening of your condition or if you develop new concerning symptoms. Referrals: Per Fisher MD [Primary Care Provider] - 09/13/18 9:15 am () (1) Chest pain Qualifiers: Chest pain type: other chest pain Qualified Code(s): R07.89 - Other chest hali n; R07.8 - Other chest pain (2) CAD (coronary artery disease) Qualifiers: Coronary Disease-Associated Artery/Lesion type: [place] artery [place] vs. 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
[2018-09-09] MEDS: Levalbuterol Neb 1.25 MG/3 ML IH SCH ×2 (03:30→10:21)
[2018-09-09] MEDS: *HR* Heparin 5,000 UNIT/ML VIAL SQ SCH (05:28)
[2018-09-09 07:26] LABS: Basophils % 0.3 %; Eosinophils # 0.2 K/mcL (0.0-0.6); Eosinophils % 2.7 %; Hematocrit 38.9 % (37.5-50.1); Hemoglobin 13.2 g/dL (12.9-16.9); Immature Granulocytes % 0.4 % (0-4); Lymphocytes # 1.7 K/mcL (0.6-4.6); Lymphocytes % 21.6 %; Mean Corpuscular HGB Conc 33.9 g/dL (31.6-35.5); Mean Corpuscular Hemoglobin 31.9 pg (28.0-33.3); Mean Platelet Volume 9.4 fL (9.4-12.4); Monocytes # 0.9 K/mcL (0.0-1.3); Monocytes % 11.1 %; Platelet Count 240 K/mcL (140-400); Red Blood Count 4.14 M/mcL (4.19-5.50); Red Cell Distribution Width 12.6 % (11.5-14.5); Segmented Neutrophils % 63.9 %
[2018-09-09 07:39] LABS: BUN/Creatinine Ratio 16 (6-26); Blood Urea Nitrogen 15 mg/dL (8-23); Calcium 9.5 mg/dL (8.6-10.3); Carbon Dioxide 24 mEq/L (23-29); Chloride 101 mEq/L (98-107); Glucose 154 mg/dL (70-105); Osmolality,Calculated 284 (280-300); Potassium 3.7 mEq/L (3.5-5.1); Sodium 135 mEq/L (136-145); eGFR For Non-African Americans > 60 (> 60)
[2018-09-09] MEDS: Insulin LISPRO 300 UNITS/3 ML VIAL SQ SCH ×2 (08:02→12:52)
[2018-09-09] MEDS: cefTRIAXone 1,000 MG in Water for inj. (sterile) 20 ML 10 ML IVP SCH (08:03)
[2018-09-09] MEDS: Aspirin 81 MG TAB.CHEW PO SCH (08:03)
[2018-09-09] MEDS: Cholecalciferol (D-3) 1,000 UNIT TABLET PO SCH (08:04)
[2018-09-09] MEDS ORDERED: Levofloxacin 750 MG/150 ML 750 MG/150 ML BAG IVPB SCH (10:15)
--- NOTE | 2018-09-09 11:46 | Discharge Summary ---
- NOTES TO OUTPATIENT PROVIDER Notes to Outpatient Provider: UTI with ESBL / possible pneumonia. Echo did show asymmetric basal septal hypertrophy without LVOT obstruction-continue with beta ghazala patient will follow-up with cardiology as outpatient and repeat echo Orders not resulted at time of discharge: Pending orders 09/07/18 03:18 Culture,Blood [BC] Stat Date of Encounter: 09/09/18 Time of Encounter: 11:43 - Discharge Diagnosis (1) Chest pain Priority: Secondary Status: Acute Assessment and Plan: Complaints of chest pain with cough Troponins have been fine adynamic Cardiac echo Impressions: LVEF 55%. Asymmetric basal septal hypertrophy without LVOT obstruction. Mild left ventricular diastolic dysfunction. Normal right ventricular structure and function. Mild aortic regurgitation. No pulmonary hypertension. Qualifiers: Chest pain type: other chest pain Qualified Code(s): R07.89 - Other chest pain; R07.8 - Other chest pain (2) CAD (coronary artery disease) Priority: Secondary Status: Chronic Assessment and Plan: Hx of chronic CAD. Previous heart catheterization in 2013 with stent placement 2. HLD. HTN. DM. Continuous cardiac telemetry. Previous echocardiogram on 04/29/17 shows LVEF of 55%, mild concentric left ventricular hypertrophy, mild left ventricular diastolic dysfunction, dilated RV with normal function, mild mitral regurgitation, and no pulmonary hypertension. Echocardiogram Impressions: LVEF 55%. Asymmetric basal septal hypertrophy without LVOT obstruction. Mild left ventricular diastolic dysfunction. Normal right ventricular structure and function. Mild aortic regurgitation. No pulmonary hypertension. Qualifiers: Coronary Disease-Associated Artery/Lesion type: [place] artery [place] vs. transplanted heart: [place] heart Associated angina: without angina Qualified Code(s): I25.10 - Atherosclerotic heart disease of [place] coronary artery without angina pectoris (3) Sepsis Priority: Primary Status: Acute Qualifiers: Sepsis type: sepsis due to unspecified organism Qualified Code(s): A41.9 - Sepsis, unspecified organism (4) SOB (shortness of breath) Priority: Secondary Status: Acute (5) Nausea & vomiting Priority: Secondary Status: Acute Assessment and Plan: Acute nausea and vomiting for the past week. No vomiting since admitted. Phenergan 12.5 mg IVP every 6 hour when necessary for nausea and vomiting. Qualifiers: Vomiting type: cyclical vomiting Qualified Code(s): G43.A0 - Cyclical vomiting, not intractable (6) Diabetes Priority: Secondary Status: Chronic Assessment and Plan: Hx of chronic diabetes controlled w/oral anti-hyperglycemics. Hold patient's Glucophage and low-dose sliding scale insulin with hypoglycemic protocol ordered. A1c 7.4 . BG checks before meals at bedtime. 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 Pt. in SR on admission. Continuous cardiac telemetry. Monitor. (8) HLD (hyperlipidemia) Priority: Secondary Status: Chronic Assessment and Plan: Hx of chronic HLD.Continue pts. Lipitor. Qualifiers: Hyperlipidemia type: pure hypercholesterolemia Qualified Code(s): E78.00 - Pure hypercholesterolemia, unspecified; E78.0 - Pure hypercholesterolemia (9) HTN (hypertension) Priority: Secondary Status: Chronic Assessment and Plan: Hx of chronic HTN. Monitor pt. and VS. Continue patient's carvedilol. Qualifiers: Hypertension type: essential hypertension Qualified Code(s): I10 - Essential (primary) hypertension (10) Cough Priority: Secondary Status: Acute (11) UTI (urinary tract infection) Priority: Secondary Status: Acute Assessment and Plan: Patient resented with weakness elevated white count fever denies any urinary symptoms urinalysis indicative UTI urine culture growing ESBL sensitive to Levaquin. We will discontinue Rocephin and continue with Levaquin Qualifiers: Urinary tract infection type: site unspecified Hematuria presence: with hematuria Qualified Code(s): N39.0 - Urinary tract infection, site not specified; R31.9 - Hematuria, unspecified Hospital course: Mr. Aguilar is a 83 year old male asked medical history of arthritis atrial fibrillation cancer coronary artery disease stent 2 diabetes hypertension hyperlipidemia presented to [facility] ED with complaints of shortness of breath cou gh fever nausea and vomiting for the past week. Also reports of chest discomfort while coughing. On presentation he did have a fever of 102.9 chest CTA completed with negative for PE but did show bibasilar airspace disease atelectasis versus pneumonia. Elevation in white count 11.4 on admission. He was admitted with possible pneumonia sepsis-urinalysis did reveal a UTI. He was started on antibiotic cultures were negative to date. Urine culture did reveal ESBL sensitive to Levaquin. Patient was placed on Levaquin. He is evaluated by PT and OT with no needs identified. He has been angulating without any difficulty oxygen saturations has been stables complains of no chest pain troponins were obtained and were flat adynamic. Cardiac echo shows EF 55% unchanged from previous asymmetric basal septal hypertrophy without LVOT obstruction mild left ventricular diastolic dysfunction normal right ventricular structure and function mild aortic regurgitation no pulmonary hypertension. P atient states he feels much better and is ready to be discharged home. Advised patient follow-up with primary care provider he will be given prescription for Levaquin and Mucinex he is hemodynamically stable at this time is ready for discharge. - Time Spent with Patient Total time spent providing and/or coordinating discharge services: - Discharge Medications Prescriptions: New levoFLOXacin [Levaquin] 750 mg PO DAILY 4 Days #4 tablet GuaiFENesin ER [Mucinex] 600 mg PO Q12H PRN #10 tbbp.12hr PRN Reason: Congestion No Action metFORMIN [Glucophage] 500 mg PO BID Cholecalciferol (Vitamin D3) [Vitamin D3] 1,000 unit PO DAILY Carvedilol 3.125 mg PO DAILY Atorvastatin [Lipitor] 40 mg PO HS Nitroglycerin [Nitrostat] 0.4 mg SL AD PRN PRN Reason: Chest Pain Aspirin [Lo-Dose Aspirin EC] 81 mg PO DAILY Cetirizine HCl 10 mg PO DAILY Vitamin E Acetate [Vitamin E] 400 unit PO DAILY Home Medications: Atorvastatin [Lipitor] 40 mg PO HS 05/21/15 [History] Carvedilol 3.125 mg PO DAILY 05/21/15 [History] Cholecalciferol (Vitamin D3) [Vitamin D3] 1,000 unit PO DAILY 05/21/15 [History] metFORMIN [Glucophage] 500 mg PO BID 05/21/15 [History] Nitroglycerin [Nitrostat] 0.4 mg SL AD PRN 11/07/15 [History] Aspirin [Lo-Dose Aspirin EC] 81 mg PO DAILY 09/07/18 [History] Cetirizine HCl 10 mg PO DAILY 09/07/18 [History] Vitamin E Acetate [Vitamin E] 400 unit PO DAILY 09/07/18 [History] GuaiFENesin ER [Mucinex] 600 mg PO Q12H PRN #10 tbbp.12hr 09/09/18 [Rx] levoFLOXacin [Levaquin] 750 mg PO DAILY 4 Days #4 tablet 09/09/18 [Rx] Allergies/Adverse Reactions: Allergy/AdvReac Type Severity Reaction Status Date / Time Sulfa (Sulfonamide Allergy Hives Verified 09/07/18 15:32 Antibiotics) oxycodone [Oxycodone] AdvReac Dizziness Verified 09/07/18 15:32 Date of admission: 09/08/18 18:40 Primary care physician: Per Fisher MD Consults: 09/07/18 02:45 Consult to Yoga Teacher [CONS] Routine Reason for SW Consult: Please assess patient for possible home needs for post-discharge planning. 09/07/18 08:58 Consult to Nurse Navigator [CONS] Routine Comment: PNEUMONIA Discharging clinician: Mony Dukes Anticipated date of discharge: 09/09/18 - Constitutional Vitals: Temp Pulse Resp BP Pulse Ox 98.3 F 83 16 135/77 94 09/09/18 07:03 09/09/18 07:03 09/09/18 10:21 09/09/18 07:03 09/09/18 10:21 General appearance: Present: cooperative, mild distress (Chills, fever), A&O X 3, pleasant, answers questions appropriately Exam: Skin: Free of rash and discoloration. Eyes: Sclera is white. There is no discharge from eyes. ENMT: Oral/pharyngeal mucosa is normal in appearance. There is no discharge from nose or ears. Respiratory: Normal breath sounds with no crackles and wheezes bilaterally. CV: Heart is regular with no gallop or murmur. GI: Abdomen is flat and soft with no palpable mass or visceromegaly. : There is no tenderness in patient's flanks bilaterally. Neuro exam: He has good strength in upper and lower extremities. He has normal eye movements. Psychiatric: He has normal affect. His thought process is appropriate to the situation. - Patient Status Disposition: Home, Self-Care Condition: Fair Functional capacity at discharge: independent ambulation - Discharge Instructions Instructions: Chest Pain (DC) Follow Up With: Per Fisher MD [Primary Care Provider] - 09/13/18 9:15 am () Additional Instructions: Please follow-up with your primary care provider for continuation of your care. Return to the emergency department if you develop any worsening of your condition or if you develop new concerning symptoms. - Diet and Activity Activity: increase activity as tolerated Diet: advance to your usual diet
[2018-09-09 11:51] VITALS: BP 120/77
== END 2018-09-09 14:36 | disposition home or self-care (01) | DRG 872 ==
LOC: EMEROOARM 18:28 → 3BNU 18:28
PROVIDERS: ADMIT Internal Medicine; ATTEND Internal Medicine

== ENCOUNTER 2018-09-17 12:10 | Inpatient (IN) ==
[2018-09-17] MEDS ORDERED: 0.9 % Sodium Chloride 1,000 ML IVC ONE (12:30)
[2018-09-17] MEDS ORDERED: *HR* Adenosine 6 MG/2 ML VIAL IVP ONE (12:30)
--- NOTE | 2018-09-17 12:32 | Emergency Department Note ---
Disposition Clinical Impression: Palpitations Atrial flutter Qualifiers: Atrial flutter type: unspecified Qualified Code(s): I48.92 - Unspecified atrial flutter Dyspnea Qualifiers: Dyspnea type: unspecified Qualified Code(s): R06.00 - Dyspnea, unspecified Disposition: Admitted As Inpatient Condition: Fair Referrals: Per Fisher MD [Primary Care Provider] - Forms: ED Satisfaction Letter Arrhythmia/Palpitations HPI - General Chief Complaint: ED Arrhythmia/Palpitations Stated Complaint: high heart rate, val Time Seen by Provider: 09/17/18 12:30 Source: patient, family Limitations: no limitations Nursing Notes Reviewed: Yes Vital Signs Reviewed: Yes - History of Present Illness HPI Narrative: 83-year-old male presents from home for evaluation of shortness of breath and palpitations as well as mild generalized weakness. Onset this morning. He noticed his symptoms when he was up and around trying to get things done around the house today. He denies chest pain. No cough or fever. No focal numbness or tingling or weakness. He does have a history of atrial fibrillation that appears to be paroxysmal. She does not take any controlling medications. He does take aspirin 81mg daily. ROS: Positive: Dyspnea, palpitations, weakness Negative: Fever, chills, nausea, vomiting, chest pains, diaphoresis, cough, focal numbness or tingling or weakness - Related Data Home Medications Medication Instructions Recorded Confirmed Atorvastatin [Lipitor] 40 mg PO HS 05/21/15 09/17/18 Carvedilol 3.125 mg PO DAILY 05/21/15 09/17/18 Cholecalciferol (Vitamin D3) 1,000 unit PO DAILY 05/21/15 09/17/18 [Vitamin D3] metFORMIN [Glucophage] 500 mg PO BIDWM 05/21/15 09/17/18 Nitroglycerin [Nitrostat] 0.4 mg SL AD PRN 11/07/15 09/17/18 Aspirin [Lo-Dose Aspirin EC] 81 mg PO DAILY 09/07/18 09/17/18 Cetirizine HCl 10 mg PO DAILY 09/07/18 09/17/18 Vitamin E Acetate [Vitamin E] 400 unit PO DAILY 09/07/18 09/17/18 Allergies Allergy/AdvReac Type Severity Reaction Status Date / Time Sulfa (Sulfonamide Allergy Hives Verified 09/07/18 15:32 Antibiotics) oxycodone [Oxycodone] AdvReac Dizziness Verified 09/07/18 15:32 Review of Systems: As Per HPI Limitations: ROS unobtainable due to patients medical condition Past Medical History - Past Medical History Medical history: Reports: arthritis, atrial fibrillation, cancer, coronary artery disease, diabetes, hyperlipidemia, hypertension, other Surgical history: Reports: angioplasty/stent (x2), prostatectomy Psychiatric history: Reports: no psych history - Social History Smoking Status: Never smoker Smokeless Tobacco Status: No Alcohol use: Reports: occasionally Drug use: Reports: none Physical Exam Vital Signs Reviewed General: Patient is alert, oriented, and in no acute distress. Head: atraumatic, normocephalic Eye: normal appearance, PERRL, EOMI, no scleral icterus, no conjunctival injection ENT: mucous membranes moist, normal external ear exam Neck: normal inspection, trachea midline, full ROM Chest: normal inspection, symmetric chest rise Respiratory: Good respiratory effort. Bilateral breath sounds are clear without wheezing, crackles, or rhonchi. Cardiovascular: Tachycardic rate and irregular rhythm. No clicks, rubs, gallops, or murmors. Normal heart sounds. Bilateral radial pulses 2/4 equal. No pedal edema. Abdomen: Bowel sounds present normoactive. Abdomen is soft, nondistended, and nontender. No guarding or rebound. No organomegaly noted. Musculoskeletal: Spontaneously moving all extremities. Skin: warm, dry, intact. Neuro: GCS 15. No focal neurologic deficits observed. Psych: Patient's affect is appropriate for situation. - General Limitations: no limitations General appearance: alert, in no apparent distress Course Course Narrative: 6mg adenosine rapid push administered. Patient's HR slowed to the mid 60's and was A. flutter on bedside monitor. Will begin esmolol drip as patient's BP is systolic 106; must be cautious in how aggressively we rate contol to maintain his BP. EKG dated 09/17/2018 at 12:23 interpreted as possible SVT versus a flutter. Rate of 160. ND 93. QRS 79. QTC 474. Nonspecific ST-T changes. This is a new rhythm compared to previous dated 09/07/2018; no apparent ischemic changes or comparison. 15:45 Patient has been on esmolol drip, titrating up. Currently at 100 K or per kilogram per minute. His heart rate remains a flutter on 55. Blood pressure is now beginning to soften at 95/83. 16:00 My attending spoke with on-call cardiology, Dr. Cueto. He recommends 150 mg bolus of amiodarone followed by drip of 1mg/kg. Will discuss this with ED pharmacy. Esmolol discontinued. I discussed the above with the admitting hospitalist, Dr. Watt, results of the patient for continued monitoring. We discussed the patient H Rohl flutter as well as his soft blood pressures, cardiology consult, amiodarone use. Vital Signs Temperature 98.2 F 09/17/18 12:20 Pulse Rate 160 09/17/18 12:20 Respiratory Rate 18 09/17/18 12:20 Blood Pressure 107/58 09/17/18 12:20 O2 Sat by Pulse Oximetry 96 09/17/18 12:20 Temperature 98.2 F 09/17/18 12:20 Pulse Rate 146 09/17/18 16:46 Respiratory Rate 16 09/17/18 16:46 Blood Pressure 113/88 09/17/18 16:46 O2 Sat by Pulse Oximetry 96 09/17/18 16:46 Oxygen Delivery Oxygen Delivery Nasal Cannula Arrhythmia/Palpitations - Lab Data Result diagrams: 09/17/18 12:30 09/17/18 12:30 Lab Results 09/17/18 09/17/18 09/17/18 Range/Units 12:30 12:30 12:30 WBC 12.6 H (4.3-11.1) K/mcL RBC 4.27 (4.19-5.50) M/mcL Hgb 13.8 (12.9-16.9) g/dL Hct 40.7 (37.5-50.1) % MCV 95.3 (83.0-100.0) fL MCH 32.3 (28.0-33.3) pg MCHC 33.9 (31.6-35.5) g/dL RDW 13.1 (11.5-14.5) % Plt Count 363 (140-400) K/mcL MPV 9.2 L (9.4-12.4) fL Immature Gran % 0.6 (0-4) % Seg Neutrophils % 71.1 % Lymphocytes % 20.2 % Monocytes % 6.7 % Eosinophils % 1.0 % Basophils % 0.4 % Neutrophils # 8.9 (1.6-8.9) K/mcL Lymphocytes # 2.5 (0.6-4.6) K/mcL Monocytes # 0.8 (0.0-1.3) K/mcL Eosinophils # 0.1 (0.0-0.6) K/mcL Basophils # 0.1 (0.0-0.2) K/mcL PT 14.0 H (9.4-12.1) Seconds INR 1.2 APTT 36.0 (26.0-36.0) Seconds Sodium 138 (136-145) mEq/L Potassium 4.1 (3.5-5.1) mEq/L Chloride 104 (98-107) mEq/L Carbon Dioxide 22 L (23-29) mEq/L BUN 12 (8-23) mg/dL Creatinine 1.05 (0.70-1.30) mg/dL Est GFR ( Amer) > 60 (> 60) Est GFR (Non-Af Amer) > 60 (> 60) BUN/Creatinine Ratio 11 (6-26) Glucose 166 H (70-105) mg/dL Calculated Osmolality 290 (280-300) Calcium 9.5 (8.6-10.3) mg/dL Magnesium 2.1 (1.6-2.6) mg/dL Troponin I 0.03 (< 0.04) ng/mL TSH 2.095 (0.340-5.600) mcIU/mL Attestation Statement - Attestation Attestation: I, Griffin Young DO, examined this patient [id number] and my medical decision-making was reviewed with Dr. Marty Farrell Resident Physician. I agree with the documented findings, disposition and treatment plan as described except to the extent set forth below. I personally supervised and was present for the mora/critical portions of the procedures completed by the resident documented below. Please see my progress notes for details.
[2018-09-17 12:45] LABS: Basophils # 0.1 K/mcL (0.0-0.2); Basophils % 0.4 %; Eosinophils # 0.1 K/mcL (0.0-0.6); Hematocrit 40.7 % (37.5-50.1); Hemoglobin 13.8 g/dL (12.9-16.9); Immature Granulocytes % 0.6 % (0-4); Lymphocytes # 2.5 K/mcL (0.6-4.6); Lymphocytes % 20.2 %; Mean Corpuscular HGB Conc 33.9 g/dL (31.6-35.5); Mean Corpuscular Hemoglobin 32.3 pg (28.0-33.3); Mean Corpuscular Volume 95.3 fL (83.0-100.0); Mean Platelet Volume 9.2 fL (9.4-12.4); Monocytes # 0.8 K/mcL (0.0-1.3); Monocytes % 6.7 %; Neutrophils # 8.9 K/mcL (1.6-8.9); Platelet Count 363 K/mcL (140-400); Red Blood Count 4.27 M/mcL (4.19-5.50); Red Cell Distribution Width 13.1 % (11.5-14.5); Segmented Neutrophils % 71.1 %
[2018-09-17 12:51] LABS: INR 1.2
[2018-09-17] MEDS ORDERED: Esmolol 2.5 GM/250 ML MLS IVC SCH (13:00)
[2018-09-17 13:08] LABS: BUN/Creatinine Ratio 11 (6-26); Blood Urea Nitrogen 12 mg/dL (8-23); Calcium 9.5 mg/dL (8.6-10.3); Carbon Dioxide 22 mEq/L (23-29); Chloride 104 mEq/L (98-107); Glucose 166 mg/dL (70-105); Magnesium 2.1 mg/dL (1.6-2.6); Osmolality,Calculated 290 (280-300); Potassium 4.1 mEq/L (3.5-5.1); Sodium 138 mEq/L (136-145); eGFR For Non-African Americans > 60 (> 60)
[2018-09-17 13:09] LABS: Troponin I 0.03 ng/mL (< 0.04)
[2018-09-17 13:24] LABS: Thyroid Stimulating Hormone 2.095 mcIU/mL (0.340-5.600)
--- NOTE | 2018-09-17 14:20 | Emergency Department Note ---
Disposition Clinical Impression: Palpitations Atrial flutter Qualifiers: Atrial flutter type: unspecified Qualified Code(s): I48.92 - Unspecified atrial flutter Dyspnea Qualifiers: Dyspnea type: unspecified Qualified Code(s): R06.00 - Dyspnea, unspecified Disposition: Admitted As Inpatient Condition: Fair Referrals: Per Fisher MD [Primary Care Provider] - Forms: ED Satisfaction Letter Time of Disposition: 16:16 General Adult HPI - General Chief complaint: ED Arrhythmia/Palpitations Stated complaint: high heart rate, val Time Seen by Provider: 09/17/18 12:30 Source: patient, family Limitations: no limitations - History of Present Illness Pain Scale: 0 - Related Data Home Medications Medication Instructions Recorded Confirmed Atorvastatin [Lipitor] 40 mg PO HS 05/21/15 09/17/18 Carvedilol 3.125 mg PO DAILY 05/21/15 09/17/18 Cholecalciferol (Vitamin D3) 1,000 unit PO DAILY 05/21/15 09/17/18 [Vitamin D3] metFORMIN [Glucophage] 500 mg PO BID 05/21/15 09/17/18 Nitroglycerin [Nitrostat] 0.4 mg SL AD PRN 11/07/15 09/17/18 Aspirin [Lo-Dose Aspirin EC] 81 mg PO DAILY 09/07/18 09/17/18 Cetirizine HCl 10 mg PO DAILY 09/07/18 09/17/18 Vitamin E Acetate [Vitamin E] 400 unit PO DAILY 09/07/18 09/17/18 Allergies Allergy/AdvReac Type Severity Reaction Status Date / Time Sulfa (Sulfonamide Allergy Hives Verified 09/07/18 15:32 Antibiotics) oxycodone [Oxycodone] AdvReac Dizziness Verified 09/07/18 15:32 Past Medical History - Past Medical History Medical history: Reports: arthritis, atrial fibrillation, cancer, coronary artery disease, diabetes, hyperlipidemia, hypertension, other Surgical history: Reports: angioplasty/stent (x2), prostatectomy Psychiatric history: Reports: no psych history - Social History Smoking Status: Never smoker Smokeless Tobacco Status: No Alcohol use: Reports: occasionally Drug use: Reports: none Physical Exam - General Limitations: no limitations General appearance: alert, in no apparent distress Course Vital Signs Temperature 98.2 F 09/17/18 12:20 Pulse Rate 160 09/17/18 12:20 Respiratory Rate 18 09/17/18 12:20 Blood Pressure 107/58 09/17/18 12:20 O2 Sat by Pulse Oximetry 96 09/17/18 12:20 Temperature 98.2 F 09/17/18 12:20 Pulse Rate 153 09/17/18 15:21 Respiratory Rate 18 09/17/18 15:21 Blood Pressure 96/76 09/17/18 15:21 O2 Sat by Pulse Oximetry 96 09/17/18 15:21 Oxygen Delivery Oxygen Delivery Nasal Cannula Medical Decision Making - Lab Data Result diagrams: 09/17/18 12:30 09/17/18 12:30 Lab Results 09/17/18 09/17/18 09/17/18 Range/Units 12:30 12:30 12:30 WBC 12.6 H (4.3-11.1) K/mcL RBC 4.27 (4.19-5.50) M/mcL Hgb 13.8 (12.9-16.9) g/dL Hct 40.7 (37.5-50.1) % MCV 95.3 (83.0-100.0) fL MCH 32.3 (28.0-33.3) pg MCHC 33.9 (31.6-35.5) g/dL RDW 13.1 (11.5-14.5) % Plt Count 363 (140-400) K/mcL MPV 9.2 L (9.4-12.4) fL Immature Gran % 0.6 (0-4) % Seg Neutrophils % 71.1 % Lymphocytes % 20.2 % Monocytes % 6.7 % Eosinophils % 1.0 % Basophils % 0.4 % Neutrophils # 8.9 (1.6-8.9) K/mcL Lymphocytes # 2.5 (0.6-4.6) K/mcL Monocytes # 0.8 (0.0-1.3) K/mcL Eosinophils # 0.1 (0.0-0.6) K/mcL Basophils # 0.1 (0.0-0.2) K/mcL PT 14.0 H (9.4-12.1) Seconds INR 1.2 APTT 36.0 (26.0-36.0) Seconds Sodium 138 (136-145) mEq/L Potassium 4.1 (3.5-5.1) mEq/L Chloride 104 (98-107) mEq/L Carbon Dioxide 22 L (23-29) mEq/L BUN 12 (8-23) mg/dL Creatinine 1.05 (0.70-1.30) mg/dL Est GFR ( Amer) > 60 (> 60) Est GFR (Non-Af Amer) > 60 (> 60) BUN/Creatinine Ratio 11 (6-26) Glucose 166 H (70-105) mg/dL Calculated Osmolality 290 (280-300) Calcium 9.5 (8.6-10.3) mg/dL Magnesium 2.1 (1.6-2.6) mg/dL Troponin I 0.03 (< 0.04) ng/mL TSH 2.095 (0.340-5.600) mcIU/mL Attestation Statement - Attestation Attestation: I, Griffin Young DO, examined this patient [id number] and my medical decision-making was reviewed with Dr. Marty Farrell, Resident Physician. I agree with the documented findings, disposition and treatment plan as described except to the extent set forth below. I personally supervised and was present for the mora/critical portions of the procedures completed by the resident documented below. Please see my progress notes for details. 83-year-old male presents emergency room for describes shortness of breath. Denies any chest pain fevers chills nausea vomiting or diarrhea. He does not have any headache or vision change. Denies any recent falls trauma or injury. He does have a remote history of paroxysmal atrial fibrillation. He does not take any blood thinners for that at this time. Patient is otherwise currently stable. Blood pressure stable on arrival. Heart rate was 160. Rhythm is r egular. Concern for supraventricular tachycardia. Patient is a history of atrial fibrillation appears to be paroxysmal. Her recent cardiac evaluation with echocardiogram completed one week ago that was normal function was some apical akinesis. Patient is otherwise asymptomatic at this time. He takes his baby aspirin daily. Vital signs are otherwise unremarkable. Patient is resting in the bed. Pacer pads were placed along with IV access obtained in the right and left antecubital fossa. Fluids are started secondary to his blood pressure being 106. Patient does have a remote history of atrial fibrillation and this is most likely atrial flutter at this time with a 21 conduction block. Patient otherwise has clear lungs heart is regular but tachycardic abdomen is soft no pulsatile masses or lesions. Extremities are normal and no other acute findings on physical exam. Patient will be provided with fluids and the medications intervention as needed. Bedside modified Valsalva maneuver was completed without any relief of symptoms. That time determination was made to do immediate 6 mg of adenosine. Rapid flush was completed and the patient was kept on the monitor as well as a pacer pads are at the entire event. Presently physician directed the procedure was involved throughout the entire treatment course at the bedside. Patient's ventricular rate did slow down and showed a underlying atrial flutter presentation with a sawtoothed deformity. This was collected on a rhythm strip and saved for evaluation in the chart. Patient will have the remainder of his laboratory workup completed this time will be started on an esmolol drip for easy titration and rate control along with blood pressure management. 1 L of fluids will be given and then patient will most likely req uire admission for symptomatic control management. Patient denies any other complaints or issues at this time. Is otherwise clinically stable. 60 minutes of critical care will be applied the patient's treatment course secondary to multidisciplinary intervention and medical management. See detailed documentation the physical exam, medical intervention, medical decision-making and disposition in the resident physician's note. 1600 Patient's labs are unremarkable. Is small drip is been titrated without any response. Patient's heart rate is remained in the 150s was blood pressure did drop. Cardiology consult was placed and Dr. perez reviewed the case and recommended an amiodarone bolus and then a drip to be started. Pharmacy was contacted for their help with the ordering the drip at this time. Patient is otherwise stable. He has required some oxygen secondary to a little bit of sh ortness of breath with a prolonged tachycardia. He otherwise has a negative evaluation this point. The hospitalist Dr. bonilla as reviewed the case. No other recommendations or concerns at this point. Patient will be admitted for management. He otherwise is stable up walking around the emergency department with no signs of shortness of breath cardiac arrhythmia or abnormality. Critical care has been applied to this patient's treatment course. Admission process to be established. Patient will be monitored here until the admission is completed
[2018-09-17] MEDS ORDERED: Amiodarone Premix 150 MG/100 ML BAG IVPB ONE (16:06)
[2018-09-17] MEDS ORDERED: Amiodarone Premix 360 MG/200 ML BAG IVC ONE (16:16)
--- NOTE | 2018-09-17 17:17 | Event Note ---
Date of Encounter: 09/17/18 Time of Encounter: 17:15 to serve as attending attestation pending resident completion of H&P documentation I examined this patient and my medical decision-making was reviewed with the Resident Physician Dr pakr. I agree with the documented findings, disposition and treatment plan as described except to the extent set forth below. Mr Aguilar is being observed for arrhythmia, possible SVT vs likely aflutter He presented from home where he had sob, palpitations and generalized weakness that began this morning. In ED he had HR 150-160s and ekg with possible SVT. He was given adenosine which slowed rate into 50s and apparent aflutter noted. CArdiology was contacted. Given his low BPs 90-100 sbp cardizem was avoided, trial of esmolol with HR elevated 150s and refractory to it. Cardiology plan to amio bolus and begin drip. awake, family present. He has no chest pain or pressure. sob improving since has been here. was not hypoxic in ED, on 2L NC for comfort. + palpitations. no lightheadedness, dizziness. not taking otc meds, herbs. finished levaquin course as prescribed. No orthopnea, or le edema. no calf pain or swelling. ambulating at home. Cervantes snever been on aC before . He and family deny any history bleeding in past. We discussed in detail what anticoagulation is risk and benefit in this setting. He and family have decided to pursue anticoagulation. pmhx: afib, only on asa + coreg at home, cad s/p pci 2013 x2 on asa + statin + coreg, DM on metformin, HLD, HTN, recent dc from [facility] 09/09 for sepsis from ESBL UTI and possible pna. On chart review no identifiable history of bleeding noted and none as dw patient or family surg hx: prostatectomy fam hx: mother and father with HTN and HLD social:never smoker pulm -dry cough, no wheezing, pnd, orthopnea, sputum gi- loose bm x2 this weekend, most recent today formed, no abd pain, n/v, melena or hematochezia, no history of gi bleeding in past neuro - no presyncope, syncope, cervantes, no history of IC hemorrhage, stroke or surgery, no numbness/tingling or focal weakness, generally feeling weak. skin- no rash, abscess, wounds or itching gu- has bladder clamped, no hematuria, dysuria, bladder pressure or pain gen- alert, awake,appears stated age eyes- pupils equal round cv- tachy rate and irreg rhythm, normal s1,s2, no murmurs appreciated, trace pitting bl distal leg, no jvd, warm extremities, radial pulses intact lungs- ctabl, no wheezing, rhonchi or crackles, normal reps effort on o2 nc abd- soft, non tender, non distended, + bs neuro- AAOx3, CN grossly intact, strength 5/5 throughout Arrhythmia, suspected Aflutter when slowed with adenosine pAfib hx not on AC -s/p adenosine, esmolol and amio bolus in ED -cont amio gtt, pharm reviewed to confirm order -cards consulted -begin ischemic and infectious work up as potential etiologies -tsh, lytes wnl, trop negative -tele, lipids; infectious w/u as below, -begin AC with hep gtt CHADSVASC 6, will fu cards recs for need for AC -once rate slowed/convert rhythm would get limited echo, no utility at this rate CAD s/p PCI 2013 HTN, hypotensive in ED -cont asa + statin, bb (is coreg 3.125 mg) Leukocytosis Recent ESBL UTI + possible pna in last week would have completed levaquin course 09/13 This may be reactive in nature -CXR reviewed and no pna, obtain UA and cx DM- hold oral agent, SSI further diagnoses and plan as noted by resident
[2018-09-17] MEDS ORDERED: Acetaminophen 325 MG TABLET PO PRN (17:28)
[2018-09-17] MEDS ORDERED: Naloxone 0.4 MG/ML INJ IVP PRN (17:28)
--- NOTE | 2018-09-17 17:28 | Internal Med History&Physical ---
<John Reynolds - Last Filed: 09/17/18 18:22> Date of Encounter: 09/17/18 Time of Encounter: 17:28 Internal Medicine - H&P: HPI Chief complaint: high hr, sob Admitted From: Emergency Dept Plans for Post Hospital Care: Home History of present illness: Mr. Aguilar is a 83 year old male with past medical history of atrial fibrillation, prostate cancer status post prostatectomy, CAD, diabetes, hypertension, hyperlipidemia. He is presenting to the emergency room with a complaint of shortness of breath and high heart rate starting today. Patient states that he has had these symptoms off and on for the past couple days but now as been constant since this morning. He has never had these symptoms in the past. He has had a diagnosis of atrial fibrillation for many years but denies admissions for rapid ventricular response. He is not on home anticoagulation. He states he was on many years ago but was taken off by his certified optician prior to his surgery never put back on. Shortness of breath is present at rest and worsened with exertion. He admits to a chest discomfort but denies pain. Disc omfort his worse when his shortness of breath is worsened. He denies any exertional components. He did take one nitroglycerin yesterday which did help a little bit. He denies any symptoms of fevers, chills, chest pain, nausea, vomiting, numbness, tingling, dysuria, urinary frequency. He admitted to 1 episode of diarrhea over the weekend but states this has resolved. Denies any vision changes. Of note, he was recently admitted to this facility on 09/06-09/09 and diagnosed with UTI with ESBL Escherichia coli as well as pneumonia. He states that his symptoms from that have resolved and he did complete his course of antibiotics (levaquin with mucinex), scheduled to complete on 09/13/18. He d enies any other changes in medication. He did admit to a camping trip this weekend which was without event. In the emergency room, vital signs were initially significant for heart rate of 160 and blood pressure of 107/58. He was tolerating 96% oxygen on room air but was given 2 L oxygen for patient comfort. Laboratory results were significant for mild leukocytosis 12.6, bicarbonate of 22, otherwise within normal limits including magnesium, troponin, TSH. Chest x-ray showed mild pulmonary vascular congestion. EKG was obtained and showed supraventricular tachycardia with rate in the 150s to 160s. Also noted was left axis deviation, QT prolongation at 474, early R-wave progression with possible LVH, ST depression in V4, V5. Patient was initially treated with adenosine which did slow his rate down temporarily at which time a rhythm of atrial flutter was observed on telemetry strip. Patient was started on esmolol drip, however patient's blood pressure did not tolerate this. At this time, cardiology was consulted who recommended an amiodarone drip. He was also given 1 L normal saline bolus. During time of my interview, patient is currently asymptomatic with no concerns of chest pain, shortness of breath, palpitations, lightheaded, dizziness. Heart rate remains in the 150s and blood pressure has improved to the 120s/80s. Cardiac workup: Echocardiogram on 09/07/18 with ejection fraction of 55% and asymmetrical basal septal hypertrophy without LVOT obstruction, mild diastolic dysfunction, mild AR Pharm Stress test September 2017- negative for ischemia Left heart catheterization with stent placement in 2008, 2013 Past medical history: As above Past surgical history: Prostatectomy, coronary artery stent 2 Social history: Never smoker, former one drink daily alcohol use, denies drug use Past Med Surg Social Fam HX - Past Medical History Medical history: arthritis, atrial fibrillation, cancer, coronary artery disease, diabetes, hyperlipidemia, hypertension, other Additional medical history: Prostate cancer Psychiatric history: no psych history - Past Surgical History Surgical History: angioplasty/stent (x2), prostatectomy Additional surgical history: 2008, 2013 heart cath with stent x 2. prostatectomy - Social History Smoking Status: Never smoker Smokeless Tobacco Status: No Alcohol use: occasionally Drug use: none - Family History Mother Family Member Ethnicity: Non- Living Status: Hx Family Cardiac Disorders: Yes (HTN, HLD, CAD) Hx Family Endocrine Disorder: Yes (DM) Father Family Member Ethnicity: Non- Living Status: Hx Family Cardiac Disorders: Yes (CAD) Brother Family Member Ethnicity: Non- Living Status: Hx Family Cardiac Disorders: Yes (HD, Heart murmur) Internal Medicine - H&P: Meds Atorvastatin [Lipitor] 40 mg PO HS 05/21/15 [History] Carvedilol 3.125 mg PO DAILY 05/21/15 [History] Cholecalciferol (Vitamin D3) [Vitamin D3] 1,000 unit PO DAILY 05/21/15 [History] metFORMIN [Glucophage] 500 mg PO BIDWM 05/21/15 [History] Nitroglycerin [Nitrostat] 0.4 mg SL AD PRN 11/07/15 [History] Aspirin [Lo-Dose Aspirin EC] 81 mg PO DAILY 09/07/18 [History] Cetirizine HCl 10 mg PO DAILY 09/07/18 [History] Vitamin E Acetate [Vitamin E] 400 unit PO DAILY 09/07/18 [History] Allergy/AdvReac Type Severity Reaction Status Date / Time Sulfa (Sulfonamide Allergy Hives Verified 09/07/18 15:32 Antibiotics) oxycodone [Oxycodone] AdvReac Dizziness Verified 09/07/18 15:32 All Systems PM: A 10-system review of systems was performed and is negative for pertinent findings except as documented above in the HPI. Review of systems: - Constitutional: Admits to weakness. Denies fevers, chills, weight loss - Head/Neck: Denies VICENTE, neck stiffness - EENT: Denies vision changes/blurriness, tinnitus, auditory changes, rhinorrhea, congestion, sore throat, odynaphagia - CVS: Admits to chest discomfort. Denies chest pain, orthopnea, PND, - Pulm: Admits to shortness of breath. Denies cough, sputum, hematemesis, wheezing - GI: Denies abdominal pain, anorexia, nausea, vomiting, diarrhea, constipation, melena - : Denies dysuria, increased frequency, urgency, hematuria, - Heme: Denies ease of bleeding or bruising - MSK: Denies joint pain, limited ROM - Skin: Denies rashes, ulcers, color changes, - Neuro: Denies VICENTE, paresthesias, focal deficits, ataxia, - Constitutional Vitals: Temp Pulse Resp BP Pulse Ox 98.2 F 146 16 113/88 96 09/17/18 12:20 09/17/18 16:46 09/17/18 16:46 09/17/18 16:46 09/17/18 16:46 Exam: Gen.: Vitals noted. No acute distress. AAOx3, resting comfortably in bed. HEENT: PERRL/EOMI, oropharynx clear, Normocephalic, atraumatic, MMM Cardiac: Tachycardic, rhythm appears regular at this rate, systolic murmur, +S1/S2, trace BLE edema Pulmonary: CTA bilaterally, no wheezes, rales or rhonchi, equal chest expansion, unlabored breathing Abdomen: soft, nontender, BS noted, no guarding, no palpable HSM Skin: warm and dry, no visible lesions. MSK: ROM intact, no joint swelling noted, gait no assessed while in bed. Non tender calf or clubbing Neuro: A&Ox3, moves all extremities, no focal deficits, sensation intact, CN grossly intact Psych: Appropriate mood and behavior, AOx3 Internal Med - H&P Results - Labs CBC & Chem 7: 09/17/18 12:30 09/17/18 12:30 Labs: Short CBC 09/17/18 Range/Units 12:30 WBC 12.6 H (4.3-11.1) K/mcL Hgb 13.8 (12.9-16.9) g/dL Hct 40.7 (37.5-50.1) % Plt Count 363 (140-400) K/mcL Neutrophils # 8.9 (1.6-8.9) K/mcL BMP 09/17/18 12:30 Sodium 138 Potassium 4.1 Chloride 104 Carbon Dioxide 22 L BUN 12 Creatinine 1.05 Glucose 166 H Calcium 9.5 Cardiac Enzymes 09/17/18 Range/Units 12:30 Troponin I 0.03 (< 0.04) ng/mL - Impressions ITS Impressions Chest X-Ray 09/17/18 12:30 IMPRESSION: 1. Mild pulmonary vascular congestion. D/ / Jorden Montes MD / Jorden Montes MD Interpreting Provider: Jorden Montes MD - Assessment and Plan (1) Atrial flutter Current Visit: Yes Status: Acute Assessment and plan: - AFlutter with RVR noted both on telemetry and EKG - rate uncontrolled in 150-160s - Patient does have known history, not on AC currently - CHADVASC 5 (age, HTN, CHF, DM) - Etiology for RVR is not clear at this time- no obvious signs of infection, ischemia, anemia, hypoxia - Patient recently treated for UTI and PNA from 09/06-09/09, may be related to levaquin or unresolved infection - Lower suspicion for PE, as patient has not been hypoxic. Also have a moderate suspicion for ischemia - Electrolytes wnl - Lipids on 09/07 are unremarkable. - CXR shows mild pulm vascular congestion. CHF contributing? - Currently on amiodarone gtt per cards recommendations, remains tachycardic - Started Heparin gtt for AC for now. Will discuss further during stay - Had recent cardiac workup including echo 09/07/18, was scheduled for outpatient follow up with cardiology - Stress test 09/2017- negative - No chest pain Plan - Continue amiodarone gtt - Cardiology consult - Continue heparin gtt - Trend troponin, magnesium, cbc, bmp - If HR improves, consider AM EKG - Patient not eligible for further ischemic workup until HR improves. Qualifiers: Atrial flutter type: unspecified Qualified Code(s): I48.92 - Unspecified atrial flutter (2) SOB (shortness of breath) Current Visit: Yes Status: Acute Assessment and plan: - Suspect this was related to patient's elevated heart rate - Currently asymptomatic - On 2 L of oxygen for patient comfort, patient has not been documented to be hypoxic during admission - We will continue oxygen as patient desires and control heart rate (3) CAD (coronary artery disease) Current Visit: Yes Status: Chronic Assessment and plan: - Trop negative x1 - EKG shows some ST depressions which may very well be related to demand is chemia from high heart rate. - Will trend troponin - As above Qualifiers: Coronary Disease-Associated Artery/Lesion type: [place] artery [place] vs. transplanted heart: [place] heart Associated angina: without angina Qualified Code(s): I25.10 - Atherosclerotic heart disease of [place] coronary artery without angina pectoris (4) Diabetes mellitus Current Visit: Yes Status: Chronic Assessment and plan: - 200s on admission - Will start low SSI, hold home metformin - ADA diet Qualifiers: Diabetes mellitus type: type 2 Diabetes mellitus long term care phlebotomist insulin use: without long term care phlebotomist use Diabetes mellitus complication status: with unspecified complications Qualified Code(s): E11.8 - Type 2 diabetes mellitus with unspecified complications (5) HLD (hyperlipidemia) Current Visit: Yes Status: Chronic Assessment and plan: continue statin Qualifiers: Hyperlipidemia type: pure hypercholesterolemia Qualified Code(s): E78.00 - Pure hypercholesterolemia, unspecified; E78.0 - Pure hypercholesterolemia (6) HTN (hypertension) Current Visit: Yes Status: Chronic Assessment and plan: continue coreg, no other home antihypertensives. - monitor on amio gtt Qualifiers: Hypertension type: essential hypertension Qualified Code(s): I10 - Essential (primary) hypertension (7) History of prostate cancer Current Visit: Yes Status: Chronic Assessment and plan: s/p prostatectomy (8) LILLI on CPAP Current Visit: Yes Status: Chronic Assessment and plan: cpap at night (9) DVT prophylaxis Current Visit: Yes Status: Acute Assessment and plan: on heparin gtt (10) SIRS (systemic inflammatory response syndrome) Current Visit: Yes Status: Acute Assessment and plan: -WBC Elevated at 12.6, tachycardic - Recently admitted and treated for UTI as well as pneumonia - Suspect that this is most likely related to elevated heart rate, reactive - No obvious source of infection at this time - Chest x-ray shows mild pulmonary vascular congestion, no consolidations. - We will obtain urinalysis, monitor - Get blood cultures - Will not start abx at this time as there is no obvious source of infection - Will not give fluid boluses as patient has CHF and do not suspect infectious source. - Time Spent With Patient Total time spent is greater than 50% in coordination of care (as documented) at patient's floor/unit and/or counseling patient: <Etta Weeks - Last Filed: 09/17/18 19:57> Date of Encounter: 09/17/18 Internal Medicine - H&P: HPI History of present illness: Mr. Aguilar is a 83 year old male All Systems PM: A 10-system review of systems was performed and is negative for pertinent findings except as documented above in the HPI. - Constitutional Vitals: Temp Pulse Resp BP Pulse Ox 98.3 F 150 16 124/98 95 09/17/18 19:24 09/17/18 19:24 09/17/18 19:24 09/17/18 19:24 09/17/18 19:24 Internal Med - H&P Results - Labs CBC & Chem 7: 09/17/18 12:30 09/17/18 12:30 Labs: Short CBC 09/17/18 Range/Units 12:30 WBC 12.6 H (4.3-11.1) K/mcL Hgb 13.8 (12.9-16.9) g/dL Hct 40.7 (37.5-50.1) % Plt Count 363 (140-400) K/mcL Neutrophils # 8.9 (1.6-8.9) K/mcL BMP 09/17/18 12:30 Sodium 138 Potassium 4.1 Chloride 104 Carbon Dioxide 22 L BUN 12 Creatinine 1.05 Glucose 166 H Calcium 9.5 Cardiac Enzymes 09/17/18 09/17/18 Range/Units 12:30 17:49 Troponin I 0.03 0.03 (< 0.04) ng/mL Urine 09/17/18 Range/Units 19:07 Urine Color Yellow (Yellow) Urine Clarity Clear (Clear) Urine pH 5.5 (5.0-8.0) pH Units Ur Specific [place] 1.021 (1.010-1.025) Urine Protein 30 H (Neg-Trace) mg/dL Urine Glucose (UA) Normal (Normal) mg/dL - Impressions ITS Impressions Chest X-Ray 09/17/18 12:30 IMPRESSION: 1. Mild pulmonary vascular congestion. D/ / Jorden Montes MD / Jorden Montes MD Interpreting Provider: Jorden Montes MD - Assessment and Plan (1) CAD (coronary artery disease) Current Visit: Yes Status: Chronic Qualifiers: Coronary Disease-Associated Artery/Lesion type: [place] artery [place] vs. transplanted heart: [place] heart Associated angina: without angina Qualified Code(s): I25.10 - Atherosclerotic heart disease of [place] coronary artery without angina pectoris (2) LILLI on CPAP Current Visit: Yes Status: Chronic (3) Diabetes mellitus Current Visit: Yes Status: Chronic Qualifiers: Diabetes mellitus type: type 2 Diabetes mellitus prison insulin use: without prison use Diabetes mellitus complication status: with unspecified complications Qualified Code(s): E11.8 - Type 2 diabetes mellitus with unspecified complications (4) History of prostate cancer Current Visit: Yes Status: Chronic (5) SOB (shortness of breath) Current Visit: Yes Status: Acute (6) HLD (hyperlipidemia) Current Visit: Yes Status: Chronic Qualifiers: Hyperlipidemia type: pure hypercholesterolemia Qualified Code(s): E78.00 - Pure hypercholesterolemia, unspecified; E78.0 - Pure hypercholesterolemia (7) HTN (hypertension) Current Visit: Yes Status: Chronic Qualifiers: Hypertension type: essential hypertension Qualified Code(s): I10 - Essential (primary) hypertension (8) DVT prophylaxis Current Visit: Yes Status: Acute (9) Atrial flutter Current Visit: Yes Status: Acute Qualifiers: Atrial flutter type: unspecified Qualified Code(s): I48.92 - Unspecified atrial flutter (10) SIRS (systemic inflammatory response syndrome) Current Visit: Yes Status: Acute - Time Spent With Patient Total time spent is greater than 50% in coordination of care (as documented) at patient's floor/unit and/or counseling patient: - Attending Attestation I examined this patient and my medical decision-making was reviewed with the Resident Physician Dr reynolds. I agree with the documented findings, disposition and treatment plan as described except to the extent set forth below. Mr Aguilar is being observed for arrhythmia, possible SVT vs likely aflutter He presented from home where he had sob, palpitations and generalized weakness that began this morning. In ED he had HR 150-160s and ekg with possible SVT. He was given adenosine which slowed rate into 50s and apparent aflutter noted. CArdiology was contacted. Given his low BPs 90-100 sbp cardizem was avoided, trial of esmolol with HR elevated 150s and refractory to it. Cardiology plan to amio bolus and begin drip. awake, family present. He has no chest pain or pressure. sob improving since has been here. was not hypoxic in ED, on 2L NC for comfort. + palpitations. no lightheadedness, dizziness. not taking otc meds, herbs. finished levaquin course as prescribed. No orthopnea, or le edema. no calf pain or swelling. ambulating at home. Vicente snever been on aC before . He and family deny any history bleeding in past. We discussed in detail what anticoagulation is risk and benefit in this setting. He and family have decided to pursue anticoagulation. pmhx: afib, only on asa + coreg at home, cad s/p pci 2013 x2 on asa + statin + coreg, DM on metformin, HLD, HTN, recent dc from [facility] 09/09 for sepsis from ESBL UTI and possible pna. On chart review no identifiable history of bleeding noted and none as dw patient or family surg hx: prostatectomy fam hx: mother and father with HTN and HLD social:never smoker pulm -dry cough, no wheezing, pnd, orthopnea, sputum gi- loose bm x2 this weekend, most recent today formed, no abd pain, n/v, melena or hematochezia, no history of gi bleeding in past neuro - no presyncope, syncope, vicente, no history of IC hemorrhage, stroke or surgery, no numbness/tingling or focal weakness, generally feeling weak. skin- no rash, abscess, wounds or itching gu- has bladder clamped, no hematuria, dysuria, bladder pressure or pain gen- alert, awake,appears stated age eyes- pupils equal round cv- tachy rate and irreg rhythm, normal s1,s2, no murmurs appreciated, trace pitting bl distal leg, no jvd, warm extremities, radial pulses intact lungs- ctabl, no wheezing, rhonchi or crackles, normal reps effort on o2 nc abd- soft, non tender, non distended, + bs neuro- AAOx3, CN grossly intact, strength 5/5 throughout Arrhythmia, suspected Aflutter when slowed with adenosine pAfib hx not on AC -s/p adenosine, esmolol and amio bolus in ED -cont amio gtt, pharm reviewed to confirm order -cards consulted -begin ischemic and infectious work up as potential etiologies -tsh, lytes wnl, trop negative -tele, lipids; infectious w/u as below, -begin AC with hep gtt CHADSVASC 6, d/w Dr Cueto whom agrees -once rate slowed/convert rhythm would get limited echo, no utility at this rate CAD s/p PCI 2013 HTN, hypotensive in ED -cont asa + statin, bb (is coreg 3.125 mg) Leukocytosis Recent ESBL UTI + possible pna in last week would have completed levaquin course 09/13 This may be reactive in nature -CXR reviewed and no pna, obtain UA and cx DM- hold oral agent, SSI further diagnoses and plan as noted by resident
[2018-09-17] MEDS ORDERED: Nitroglycerin 0.4 MG TAB.SUBL SL PRN (17:31)
[2018-09-17] MEDS ORDERED: D5% in Water 1,000 ML IVC PRN (17:32)
[2018-09-17] MEDS ORDERED: *HR* Heparin 5,000 UNIT/ML VIAL IVP ONE (17:32)
[2018-09-17] MEDS ORDERED: *HR* Heparin 5,000 UNIT/ML VIAL IVP PRN ×2 (17:32)
[2018-09-17] MEDS ORDERED: Dextrose Gel 15 GM/37.5 ML TUBE PO PRN ×2 (17:32)
[2018-09-17] MEDS ORDERED: *HR* Dextrose 50 % in Water (Syg) 50 ML SYRINGE IVP PRN (17:32)
[2018-09-17 19:24] LABS: Bilirubin,Urine Negative (Negative); Blood,Urine Negative (Negative); Clarity,Urine Clear (Clear); Color,Urine Yellow (Yellow); Glucose,Urine (UA) Normal (Normal); Ketones,Urine Negative (Negative); Leukocyte Esterase,Urine Trace (Negative); Nitrite,Urine Negative (Negative); PH,Urine 5.5 pH Units (5.0-8.0); Protein,Urine 30 mg/dL (Neg-Trace); Specific Gravity,Urine 1.021 (1.010-1.025); Urobilinogen,Urine Normal (Normal)
[2018-09-17 19:26] LABS: Bacteria,Urine None Seen per hpf (None-Few); Hyaline Casts,Urine Few per lpf (None-Few); Squamous Epithelial Cell,Urine Many per lpf (None-Few)
[2018-09-17 20:07] LABS: Amphetamine Screen,Urine Negative ng/mL (Cutoff=1000); Barbiturate Screen,Urine Negative ng/mL (Cutoff=200); Benzodiazepines Screen,Urine Negative ng/mL (Cutoff=200); Cannabinoid Screen,Urine Negative ng/mL (Cutoff = 50); Cocaine Screen,Urine Negative ng/mL (Cutoff= 300); Opiate Screen,Urine Negative ng/mL (Cutoff=300); Phencyclidine Screen,Urine Negative ng/mL (Cutoff=25)
[2018-09-17] MEDS: Heparin 25,000 UNIT/250 ML D5W 25,000 UNIT/250 ML IV.SOLN IVC SCH (20:23)
[2018-09-17] MEDS: Insulin LISPRO 300 UNITS/3 ML VIAL SQ SCH (21:12)
[2018-09-17] MEDS: Amiodarone Premix 360 MG/200 ML BAG IVC SCH (22:45)
[2018-09-17] MEDS ORDERED: Melatonin 3 MG TABLET PO PRN (23:00)
[2018-09-18] MEDS ORDERED: Isovue-370 500 ML BOTTLE IVP ONE (01:49)
[2018-09-18 03:09] LABS: Basophils # 0.1 K/mcL (0.0-0.2); Basophils % 0.3 %; Eosinophils # 0.1 K/mcL (0.0-0.6); Eosinophils % 0.5 %; Hematocrit 40.3 % (37.5-50.1); Hemoglobin 13.3 g/dL (12.9-16.9); Immature Granulocytes % 0.9 % (0-4); Lymphocytes % 12.1 %; Mean Corpuscular Hemoglobin 31.4 pg (28.0-33.3); Mean Corpuscular Volume 95.3 fL (83.0-100.0); Mean Platelet Volume 9.1 fL (9.4-12.4); Monocytes # 0.8 K/mcL (0.0-1.3); Monocytes % 4.8 %; Neutrophils # 13.5 K/mcL (1.6-8.9); Platelet Count 332 K/mcL (140-400); Red Blood Count 4.23 M/mcL (4.19-5.50); Red Cell Distribution Width 13.2 % (11.5-14.5); Segmented Neutrophils % 81.4 %
[2018-09-18 03:18] LABS: INR 1.4; Prothrombin Time 15.4 Seconds (9.4-12.1)
[2018-09-18 03:28] LABS: BUN/Creatinine Ratio 14 (6-26); Blood Urea Nitrogen 15 mg/dL (8-23); Carbon Dioxide 22 mEq/L (23-29); Chloride 104 mEq/L (98-107); Glucose 175 mg/dL (70-105); Osmolality,Calculated 287 (280-300); Potassium 4.1 mEq/L (3.5-5.1); Sodium 136 mEq/L (136-145); eGFR For Non-African Americans > 60 (> 60)
[2018-09-18] MEDS: Levalbuterol Neb 0.63 MG/3 ML IH PRN ×2 (04:07→22:16)
[2018-09-18] MEDS ORDERED: *HR* LORazepam 0.5 MG TABLET PO ONE (05:06)
[2018-09-18] MEDS ORDERED: Furosemide 40 MG/4 ML VIAL IVP ONE ×2 (07:28→23:35)
[2018-09-18] MEDS ORDERED: *HR* Metoprolol 5 MG/5 ML VIAL IVP ONE ×2 (08:04→10:42)
[2018-09-18] MEDS: Insulin LISPRO 300 UNITS/3 ML VIAL SQ SCH ×4 (08:14→21:01)
[2018-09-18] MEDS: Aspirin Enteric Coated 81 MG Tablet PO SCH (08:16)
--- NOTE | 2018-09-18 09:50 | Cardiology Consult Note ---
Date of Encounter: 09/18/18 Time of Encounter: 09:46 Assessment and Plan (1) Atrial flutter Current Visit: Yes Status: Acute Hx PAF. Presents A-Flutter RVR HR 160s. Was started on amio gtt d/t hypotension--currently at 0.5mg/min. BP now improved, 120s/90s. One time dose of IV Lopressor 2.5mg given this AM. Home medication was Coreg 3.125 listed as daily. Will switch to PO Toprol 25mg daily. Discussed and reviewed with Dr. Cid. Will give IV lopressor 5mg once and PO Toprol 25mg. If still not rate controlled, will give Adenosine 6mg, then 12mg if needed. If still not rate controlled this afternoon will consider CARYN DCCV in attempt to restore SR. TTE 09/07 EF preserved, mild AR. [id number] (Age, HTN, CAD, DM). High CVA risk. Currently on heparin gtt. Previously not on AC d/t hematuria. Per pt, this was several years ago with no hematuria recently. Will trial on heparin gtt and determine PO AC prior to d/c. Qualifiers: Atrial flutter type: unspecified Qualified Code(s): I48.92 - Unspecified atrial flutter (2) CAD (coronary artery disease) Current Visit: Yes Status: Chronic Hx BMS x 2 to LCx, most recent 2013. Continue ASA, Statin, BB. Qualifiers: Coronary Disease-Associated Artery/Lesion type: [place] artery [place] vs. transplanted heart: [place] heart Associated angina: without angina Qualified Code(s): I25.10 - Atherosclerotic heart disease of [place] coronary artery without angina pectoris (3) Acute diastolic CHF (congestive heart failure) Current Visit: Yes Status: Acute Presents with dyspnea. CXR with mild vascular congestion. CTA suggestive of CHF. One time dose of IV Lasix 40mg was given. TTE 09/07/18 EF 55%, mild LVDD. Recommend strict I/Os, Na and fluid restriction, daily weights. Discussion w patient/family: The assessment and plan as outlined above was discussed with the patient and/or family members who expressed understanding and agreement. All questions were answered. Thank you for involving us in the care of your patient. Please call with any questions. I will discuss all the above with Dr. Mobile and make changes as necessary. History of Present Illness Consult date: 09/18/18 Consult reason: A-Fib RVR Chief complaint: palpitations, shortness of breath History of present illness: Mr. Aguilar is a 83 year old male with PMH of CAD, prior BMS x 2 to LCx, PAF, HTN, HLD, DM. Historically not on AC for PAF d/t hematuria. Pt presents to ED for palpitations, shortness of breath and chest pressure x 2 days. Found to be in A-flutter RVR rate 160s. Recently inpt for treatment of UTI and PNA. Troponin 0.03, 0.03, 0.04, 0.03. On amio and heparin gtt. Cardiology consulted for further recs. HR 140s at bedside. CXR with mild vascular congestion and chest CTA suggestive of CHF. Prior CV testing: TTE 09/07/18: LVEF 55%, mild LVDD, mild AR. Pharmacologic nuclear stress test 10/05/17: Negative for ischemia or prior infarct. Gated EF 59%. LHC 03/14/14: EF 55%. BMS placed in 80% mLCx lesion with good results. LAD with 20% mid and distal stenosis. RCA with 20% prox and 50% right PDA stenosis. Past Med Surg Social Fam HX - Past Medical History Medical history: arthritis, atrial fibrillation, cancer, coronary artery disease, diabetes, hyperlipidemia, hypertension, other Additional medical history: Prostate cancer Psychiatric history: no psych history - Past Surgical History Surgical History: angioplasty/stent (x2), prostatectomy Additional surgical history: 2008, 2013 heart cath with stent x 2. prostatectomy 1992 - Social History Smoking Status: Never smoker Smokeless Tobacco Status: No Alcohol use: occasionally Drug use: none - Family History Mother Family Member Ethnicity: Non- Living Status: Hx Family Cardiac Disorders: Yes (HTN, HLD, CAD) Hx Family Endocrine Disorder: Yes (DM) Father Family Member Ethnicity: Non- Living Status: Hx Family Cardiac Disorders: Yes (CAD) Brother Family Member Ethnicity: Non- Living Status: Hx Family Cardiac Disorders: Yes (HD, Heart murmur) Medications and Allergies Atorvastatin [Lipitor] 40 mg PO HS 05/21/15 [History] Carvedilol 3.125 mg PO DAILY 05/21/15 [History] Cholecalciferol (Vitamin D3) [Vitamin D3] 1,000 unit PO DAILY 05/21/15 [History] metFORMIN [Glucophage] 500 mg PO BIDWM 05/21/15 [History] Nitroglycerin [Nitrostat] 0.4 mg SL AD PRN 11/07/15 [History] Aspirin [Lo-Dose Aspirin EC] 81 mg PO DAILY 09/07/18 [History] Cetirizine HCl 10 mg PO DAILY 09/07/18 [History] Vitamin E Acetate [Vitamin E] 400 unit PO DAILY 09/07/18 [History] Allergy/AdvReac Type Severity Reaction Status Date / Time Sulfa (Sulfonamide Allergy Hives Verified 09/07/18 15:32 Antibiotics) oxycodone [Oxycodone] AdvReac Dizziness Verified 09/07/18 15:32 All Systems Review: The remainder of the systems were reviewed and are negative - Cardiovascular Cardiovascular: as per HPI, chest pain at rest, dyspnea at rest, dyspnea on exertion, palpitations - Respiratory Respiratory: dyspnea Physical Examination Vital Signs, Last 4 Hours Temp Pulse Resp BP Pulse Ox 09/18/18 07:44 92 09/18/18 06:45 98.4 F 144 20 129/95 91 Vital Signs Temp Pulse Resp BP Pulse Ox 09/18/18 07:44 92 09/18/18 06:45 98.4 F 144 20 129/95 91 09/18/18 05:00 144 127/92 09/18/18 04:30 145 131/90 09/18/18 04:10 18 93 09/18/18 03:15 98.4 F 144 16 128/93 92 09/17/18 23:33 97.2 F L 145 18 120/95 92 09/17/18 19:24 98.3 F 150 16 124/98 95 09/17/18 18:09 150 18 106/93 94 09/17/18 16:46 146 16 113/88 96 09/17/18 16:24 154 20 99/86 96 09/17/18 15:21 153 18 96/76 96 09/17/18 13:48 159 18 100/81 95 09/17/18 12:20 98.2 F 160 18 107/58 96 Intake and Output 09/17/18 09/18/18 09/18/18 23:59 07:59 15:59 Intake Total 100 / 1100 85 / 445 360 / 445 Output Total 300 / 300 Balance 100 / 1100 -215 / 145 360 / 145 Intake: IV Fluids 100 / 1100 85 / 85 Heparin 25,000 UNIT/250 ML D5W 85 / 85 25,000 unit In 250 ml @ 14 UNIT /KG/HR 11.812 mls/hr IVC . [id number] [facility] Rx#:[id number] Amiodarone Premix 150mg/100mL 100 / 100 150 mg In 100 ml @ 300 mls/hr IVPB ONCE ONE Rx#:[id number] Oral 360 / 360 Output: Urine 300 / 300 Other: Meal Breakfast Percent of Meal Consumed 50% # Urine Diapers 1 Weight 82.6 kg Patient Weight 09/18/18 23:59 Weight 82.6 kg General: Conversant, No Apparent Distress HEENT: Atraumatic, Normocephaly, Mucus Membranes Moist Neck: Normal carotid pulses Cardiac: Other (irregularly irregular rhythm) Lungs: Other (diminished) Neuro: Alert and responsive, No focal deficits noted Abdomen: Soft, Non-Tender Skin: No rashes noted on visualized skin Musculoskeletal: No Chest Wall Tenderness Extremities: No Clubbing, No Cyanosis, Other (trace BLE edema) Results 09/18/18 02:58 09/18/18 02:58 Lab Results 09/17/18 09/17/18 09/17/18 12:30 12:30 12:30 WBC 12.6 H Hgb 13.8 Hct 40.7 Plt Count 363 INR 1.2 APTT 36.0 Sodium 138 Potassium 4.1 Chloride 104 Carbon Dioxide 22 L BUN 12 Creatinine 1.05 Glucose 166 H Calcium 9.5 Magnesium 2.1 Troponin I 0.03 TSH 2.095 09/17/18 09/17/18 09/18/18 17:49 23:37 02:58 WBC 16.6 H Hgb 13.3 Hct 40.3 Plt Count 332 INR APTT Sodium Potassium Chloride Carbon Dioxide BUN Creatinine Glucose Calcium Magnesium Troponin I 0.03 0.04 H* TSH 09/18/18 09/18/18 09/18/18 02:58 02:58 02:58 WBC Hgb Hct Plt Count INR 1.4 APTT Sodium 136 Potassium 4.1 Chloride 104 Carbon Dioxide 22 L BUN 15 Creatinine 1.04 Glucose 175 H Calcium 9.0 Magnesium 2.0 Troponin I 0.03 TSH Short CBC 09/18/18 09/17/18 Range/Units 02:58 12:30 WBC 16.6 H 12.6 H (4.3-11.1) K/mcL Hgb 13.3 13.8 (12.9-16.9) g/dL Hct 40.3 40.7 (37.5-50.1) % Plt Count 332 363 (140-400) K/mcL Neutrophils # 13.5 H 8.9 (1.6-8.9) K/mcL BMP 09/18/18 09/17/18 Range/Units 02:58 12:30 Sodium 136 138 (136-145) mEq/L Potassium 4.1 4.1 (3.5-5.1) mEq/L Chloride 104 104 (98-107) mEq/L Carbon Dioxide 22 L 22 L (23-29) mEq/L BUN 15 12 (8-23) mg/dL Creatinine 1.04 1.05 (0.70-1.30) mg/dL Glucose 175 H 166 H (70-105) mg/dL Calcium 9.0 9.5 (8.6-10.3) mg/dL Cardiac Enzymes 09/18/18 09/17/18 09/17/18 Range/Units 02:58 23:37 17:49 Troponin I 0.03 0.04 H* 0.03 (< 0.04) ng/mL 09/17/18 Range/Units 12:30 Troponin I 0.03 (< 0.04) ng/mL Urine 09/17/18 Range/Units 19:07 Urine Color Yellow (Yellow) Urine Clarity Clear (Clear) Urine pH 5.5 (5.0-8.0) pH Units Ur Specific [place] 1.021 (1.010-1.025) Urine Protein 30 H (Neg-Trace) mg/dL Urine Glucose (UA) Normal (Normal) mg/dL Impressions Chest X-Ray 09/17/18 12:30 IMPRESSION: 1. Mild pulmonary vascular congestion. D/ / Jorden Montes MD / Jorden Montes MD Interpreting Provider: Jorden Montes MD Chest CTA 09/18/18 01:49 IMPRESSION: 1. No scan evidence for pulmonary embolus. 2. Findings suggest congestive heart failure. D/ / Sina Quesada MD / Sina Quesada MD Interpreting Provider: Sina Quesada MD Active Medications Acetaminophen (Tylenol) 650 mg PO Q6HR PRN PRN Reason: Mild Pain/Fever Stop: 03/19/19 17:29 Aspirin (Aspirin Ec) 81 mg PO DAILY SANDRA Stop: 03/20/19 09:01 Last Admin: 09/18/18 08:16 Dose: 81 mg Documented by: Atorvastatin Calcium (Lipitor) 40 mg PO HS SANDRA Stop: 03/19/19 21:01 Last Admin: 09/17/18 20:23 Dose: 40 mg Documented by: Carvedilol (Coreg) 3.125 mg PO DAILY SANDRA Stop: 03/20/19 09:01 Last Admin: 09/18/18 08:16 Dose: 3.125 mg Documented by: Dextrose/Water (Dextrose 50% (Syg)) 25 ml IVP AD PRN PRN Reason: Hypoglycemia Stop: 03/19/19 17:33 Glucagon (Glucagen) 1 mg IM ONCE PRN PRN Reason: Hypoglycemia Stop: 03/19/19 17:33 Glucose (Gluctose) 15 gm PO ONCE PRN PRN Reason: Hypoglycemia Stop: 03/19/19 17:33 Glucose (Gluctose) 30 gm PO ONCE PRN PRN Reason: Hypoglycemia Stop: 03/19/19 17:33 Heparin Sodium (Porcine) (Heparin) 5,900 unit 70 unit/kg (5900 unit) IVP Q6HR PRN PRN Reason: SEE COMMENTS Stop: 03/19/19 17:33 Heparin Sodium (Porcine) (Heparin) 3,000 unit 35 unit/kg (3000 unit) IVP Q6H PRN PRN Reason: SEE COMMENTS Stop: 03/19/19 17:33 Amiodarone HCl/Dextrose (Amiodarone Drip Premix 360mg/200ml) 360 mg in 200 mls @ 16.667 mls/hr IVC CONT SANDRA Stop: 03/19/19 22:31 Last Admin: 09/17/18 22:45 Dose: 0.5 mg/min, 16.7 mls/hr Documented by: Dextrose (Dextrose 5%) 1,000 mls @ 100 mls/hr IVC .Q10H PRN PRN Reason: HYPOGLYCEMIA Stop: 03/19/19 17:33 Heparin Sodium/Dextrose (Heparin 25,000 Unit/250 Ml D5w) 25,000 unit in 250 mls @ 11.812 mls/hr IVC .[id number] SANDRA; Protocol Stop: 03/19/19 17:46 Last Titration: 09/18/18 03:21 Dose: 14 unit/kg/hr, 11.8 mls/hr Documented by: Insulin Human Lispro (Humalog) 0 units SQ TIDAC SANDRA; Protocol Stop: 03/20/19 07:31 Last Admin: 09/18/18 08:14 Dose: Not Given Documented by: Insulin Human Lispro (Humalog) 0 units SQ HS SANDRA; Protocol Stop: 03/19/19 21:01 Last Admin: 09/17/18 21:12 Dose: Not Given Documented by: Levalbuterol HCl (Xopenex) 0.63 mg IH [id number] PRN PRN Reason: Shortness Of Breath Stop: 03/20/19 04:01 Last Admin: 09/18/18 04:07 Dose: 0.63 mg Documented by: Melatonin (Melatonin) 3 mg PO HS PRN PRN Reason: Insomnia Stop: 03/19/19 23:01 Last Admin: 09/17/18 23:21 Dose: 3 mg Documented by: Naloxone HCl (Narcan) 0.4 mg IVP Q2MPRN PRN PRN Reason: SEE COMMENTS Stop: 03/19/19 17:29 Nitroglycerin (Nitroglycerin) 0.4 mg SL Q5MPRN PRN PRN Reason: Chest Pain Stop: 03/19/19 17:32 - Imaging and Cardiology Stress Test: report reviewed Echo: report reviewed Cardiac cath: report reviewed - EKG Interpretation EKG results cardiology: personally reviewed (A-Flutter rate 160s), other (12 hr tele AVG HR 144, A- Flutter) Consult Discharge Plan - Plan Referrals: Per Fisher MD [Primary Care Provider] - 09/26/18 10:15 am
--- NOTE | 2018-09-18 10:17 | Electrocardiograph Report ---
[place] [id number] Test Date: 2018-09-17 Pat Name: Delroy Aguilar Department: EXAM4 Room: 2N07 Gender: M [employer]: : [id number] Requested By: Marty Farrell Order Number: [id number] Reading MD: Jordan Cid Measurements Intervals [place] Rate: 160 P: -81 [place]: 93 QRS: -39 QRSD: 79 T: 135 QT: 290 QTc: 474 Interpretive Statements Supraventricular tachycardia, possibly atrial flutter with RVR Left ventricular hypertrophy Inferior infarct, old Electronically Signed On 09-18-2018 10:16:21 EDT by Jordan Cid
--- NOTE | 2018-09-18 10:20 | Internal Med Progress Note ---
<Etta Weeks - Last Filed: 09/18/18 13:15> Hospitalist Progress Note - Encounter Date of Encounter: 09/18/18 - Exam Vitals: Temp Pulse Resp BP Pulse Ox 98.4 F 140 20 116/90 91 09/18/18 11:25 09/18/18 11:25 09/18/18 11:25 09/18/18 11:25 09/18/18 11:25 - Assessment and Plan (1) CAD (coronary artery disease) Current Visit: Yes Status: Chronic (2) LILLI on CPAP Current Visit: Yes Status: Chronic (3) Diabetes mellitus Current Visit: Yes Status: Chronic (4) History of prostate cancer Current Visit: Yes Status: Chronic (5) SOB (shortness of breath) Current Visit: Yes Status: Acute (6) HLD (hyperlipidemia) Current Visit: Yes Status: Chronic (7) HTN (hypertension) Current Visit: Yes Status: Chronic (8) DVT prophylaxis Current Visit: Yes Status: Acute (9) Atrial flutter Current Visit: Yes Status: Acute (10) SIRS (systemic inflammatory response syndrome) Current Visit: Yes Status: Acute - Time Spent with Patient Total time spent is greater than 50% in coordination of care (as documented) at patient's floor/unit and/or counseling patient: Internal Medicine: Result - Labs CBC & Chem 7: 09/18/18 02:58 09/18/18 02:58 Labs: Short CBC 09/18/18 Range/Units 02:58 WBC 16.6 H (4.3-11.1) K/mcL Hgb 13.3 (12.9-16.9) g/dL Hct 40.3 (37.5-50.1) % Plt Count 332 (140-400) K/mcL Neutrophils # 13.5 H (1.6-8.9) K/mcL BMP 09/18/18 02:58 Sodium 136 Potassium 4.1 Chloride 104 Carbon Dioxide 22 L BUN 15 Creatinine 1.04 Glucose 175 H Calcium 9.0 Cardiac Enzymes 09/17/18 09/17/18 09/18/18 Range/Units 17:49 23:37 02:58 Troponin I 0.03 0.04 H* 0.03 (< 0.04) ng/mL Urine 09/17/18 Range/Units 19:07 Urine Color Yellow (Yellow) Urine Clarity Clear (Clear) Urine pH 5.5 (5.0-8.0) pH Units Ur Specific [place] 1.021 (1.010-1.025) Urine Protein 30 H (Neg-Trace) mg/dL Urine Glucose (UA) Normal (Normal) mg/dL - ABG Interpretation ABG results: PT/INR, D-dimer PT 15.4 Seconds (9.4-12.1) H 09/18/18 02:58 - Impressions Impressions Chest CTA 09/18/18 01:49 IMPRESSION: 1. No scan evidence for pulmonary embolus. 2. Findings suggest congestive heart failure. D/ / Sina Quesada MD / Sina Quesada MD Interpreting Provider: Sina Quesada MD Consult Discharge Plan - Plan Referrals: Per Fisher MD [Primary Care Provider] - 09/26/18 10:15 am - Attending Attestation I examined this patient and my medical decision-making was reviewed with the Resident Physician Dr Malcolm. I agree with the documented findings, disposition and treatment plan as described except to the extent set forth below. Mr Aguilar is admitted with refractory aflutter on amio and hep gtt I saw pt this morning at 7:15 am. He had worsening sob and hypoxia overnight. A CTA chest was obtained that showed vasc congestion, no pna, no pe, small bl pleural effusions. No medication was given overnight. O2 requirement up to 6L NC this jeremie. He is awake, no family present. O2 sat 91-92% on 6L NC. he states sob is better now than it was overnight. cont to deny any chest pain. he cannot feel palpitations. HR remained 140-150 overnight on amio gtt. BP at bedside is currently normotensive in the 120 sbps. He is awake and alert and denies confusion, presycnope, syncope. I contacted Dr Arguello at 07:30 am to update. We gave IV Lasix, nursing aware of strict i/os, gave a one time IV lopressor 2.5 mg and monitored rate. Cards to see pt early this morning for further plan as suspect he will need cardioverted. I have been in communication with pt rn today. aware of warning signs of further decompensation including further increase in o2 requirement, bp drop, mentation change. gen- alert, awake,appears stated age cv- tachy rate and irreg/irreg rhythm, normal s1,s2, no murmurs appreciated, trace pitting bl le no jvd, warm extremities, radial pulses intact and irreg lungs- faint crackles bl bases, normal reps effort on o2 nc 6L abd- soft, non tender, non distended, + bs neuro- AAOx3, CN grossly intact Arrhythmia, suspected Aflutter when slowed with adenosine pAfib hx not on AC ischemic and infectious work up as potential etiologies -s/p adenosine, esmolol and amio gtt- remains refractory -cards updated and following -recs include toprol xl, adenosine plan in place if fails, and then DCCV if no resolution later today, made npo -hep gtt -once rate slowed/convert rhythm would get limited echo, no utility at this rate CAD s/p PCI 2013 HTN, hypotensive in ED trop 0.03, peak 0.04 -cont asa + statin, bb Meets sepsis criteria technically HR is from Aflutter refractory to treatment, Leukocytosis very well may be reactive, afebrile At this time I do not believe this is sepsis but rather a cardiac issue aware of Recent ESBL UTI + possible pna in last week though sxs are all resolved would have completed levaquin course 09/13 -CXR and CTA no pna,or PE -UA sent to cx, bl cxs ngtd -hold abx at this time as likely related to aflutter DM- hold oral agent, SSI further diagnoses and plan as noted by resident <Nela Malcolm - Last Filed: 09/18/18 15:30> Hospitalist Progress Note - Encounter Date of Encounter: 09/18/18 Time of Encounter: 09:45 - Subjective Interval History: Patient seen and examined at bedside today. He states that he continues to be short of breath when he exerts as well as palpitations. He states he had an episode overnight where he became extremely short of breath while ambulating to the bathroom. At that point he had a CTA to rule out pulmonary embolism which was negative besides for some small bilateral pleural effusions. He states that he has possibly had atrial fibrillation in the past. He states that he has had mild nonproductive cough intermittently over the past few days, as well as one episode of diarrhea which has resolved. He denies nausea, vomiting, fever, chills, chest pain, orthopnea, paroxysmal nocturnal dyspnea, pleuritic pain, abdominal pain, constipation, melena, hematochezia, dysuria, hematuria. - Exam Vitals: Temp Pulse Resp BP Pulse Ox 98.4 F 144 20 129/95 92 09/18/18 06:45 09/18/18 06:45 09/18/18 06:45 09/18/18 06:45 09/18/18 07:44 Exam: Gen: Vitals noted. Mild distress. AAOx3, laying comfortably in bed HEENT: PERRL/EOMI, oropharynx clear, Normocephalic, atraumatic, MMM Cardiac: No JVD, irregular rate and rhythm, tachycardic, no murmur, +S1/S2, radial and dorsal pedis pulses 2+ and symmetrical Pulmonary: Mild rhonchi at lung bases bilaterally, worse on the right, no wheezes, no rales, equal chest expansion Abdomen: soft, nontender, BS noted, no guarding, no rebound. Reducible umbilical hernia which he states has been present for the past several years. MSK: ROM intact, no joint swelling noted Extremities: Trace lower extremity edema bilaterally, no calf tenderness, no cyanosis or clubbing Neuro: A&Ox3, moves all extremities, no focal deficits Psych: Appropriate mood and behavior - Assessment and Plan (1) Atrial flutter Current Visit: Yes Status: Acute Assessment and Plan: Presented with complaint of shortness of breath, palpitations, weakness Etiology unclear-patient does have history of atrial fibrillation, also recent urinary tract infection and pneumonia status post Levaquin. Known history of atrial fibrillation, not on anticoagulation secondary to an episode of hematuria several years ago. Chadsvasc score of 5 EKG as well as telemetry-a flutter with RVR Rate 150 to 160s Chest x-ray showed mild ulnar vascular congestion Chest CTA-no evidence of pulmonary embolus, small bilateral pleural effusions Troponins 0.03, 0.03, 0.04, 0.03 Patient initially placed on adenosine, then esmolol however he became hypotensive, cardio recommendations were to switch to amiodarone Anticoagulation with heparin drip Cardiology consulted Plan for possible cardioversion this afternoon Update-patient successfully cardioverted to normal sinus rhythm with CARYN guided cardioversion. LVEF now severely decreased. Cardiology recommendations-continue amiodarone, diuresis as tolerated to optimize respiratory status, consider ischemic evaluation prior to discharge (2) Dyspnea Current Visit: Yes Status: Acute Assessment and Plan: Patient presents with shortness of breath, palpitations, generalized weakness Suspect secondary to atrial flutter and tachycardia Chest x-ray showed mild pulmonary vascular congestion Chest CTA-no evidence of PE, small bilateral pleural effusions Patient given 1 dose Lasix this morning for diuresis Continue Xopenex Currently on nasal cannula 4 L, at 91% Continue respiratory support as needed (3) CAD (coronary artery disease) Current Visit: Yes Status: Chronic Assessment and Plan: Patient has history of coronary artery disease status post stents 2008, stent 2013 Pharmacological stress test 10/17- negative for ischemia Initial EKG showed some ST depressions which could be secondary to demand ischemia Troponins 0.03, 0.03, 0.04, 0.03 Continue aspirin, metoprolol, atorvastatin Sublingual nitroglycerin as needed for chest pain Continue telemetry (4) Diabetes mellitus Current Visit: Yes Status: Chronic Assessment and Plan: History of diabetes mellitus Continue low-dose sliding scale Continue to monitor (5) HLD (hyperlipidemia) Current Visit: Yes Status: Chronic Assessment and Plan: Continue home medication atorvastatin (6) HTN (hypertension) Current Visit: Yes Status: Chronic Assessment and Plan: Continue metoprolol (7) LILLI on CPAP Current Visit: Yes Status: Chronic Assessment and Plan: History of obstructive sleep apnea CPAP at night Supplemental oxygen as needed (8) SIRS (systemic inflammatory response syndrome) Current Visit: Yes Status: Acute Assessment and Plan: SIRS criteria-leukocytosis 16.6, tachycardia, tachypnea Recent UTI as well as pneumonia-adequately treated Suspect reactive, secondary to atrial flutter as opposed to infection. No source of infection identified Chest x-ray showed mild pulmonary vascular congestion Chest CTA showed no evidence of pulmonary embolism, small bilateral pleural effusions Blood cultures and urine cultures pending Currently no need for antibiotics or fluid resuscitation. Patient appears to have heart failure and fluids would most likely worsen respiratory function. DVT Prophylaxis: Heparin drip - Time Spent with Patient Total time spent is greater than 50% in coordination of care (as documented) at patient's floor/unit and/or counseling patient: Internal Medicine: Result - Labs CBC & Chem 7: 09/18/18 02:58 09/18/18 02:58 Labs: Short CBC 09/17/18 09/18/18 Range/Units 12:30 02:58 WBC 12.6 H 16.6 H (4.3-11.1) K/mcL Hgb 13.8 13.3 (12.9-16.9) g/dL Hct 40.7 40.3 (37.5-50.1) % Plt Count 363 332 (140-400) K/mcL Neutrophils # 8.9 13.5 H (1.6-8.9) K/mcL BMP 09/17/18 09/18/18 12:30 02:58 Sodium 138 136 Potassium 4.1 4.1 Chloride 104 104 Carbon Dioxide 22 L 22 L BUN 12 15 Creatinine 1.05 1.04 Glucose 166 H 175 H Calcium 9.5 9.0 Cardiac Enzymes 09/17/18 09/17/18 09/17/18 Range/Units 12:30 17:49 23:37 Troponin I 0.03 0.03 0.04 H* (< 0.04) ng/mL 09/18/18 Range/Units 02:58 Troponin I 0.03 (< 0.04) ng/mL Urine 09/17/18 Range/Units 19:07 Urine Color Yellow (Yellow) Urine Clarity Clear (Clear) Urine pH 5.5 (5.0-8.0) pH Units Ur Specific [place] 1.021 (1.010-1.025) Urine Protein 30 H (Neg-Trace) mg/dL Urine Glucose (UA) Normal (Normal) mg/dL - ABG Interpretation ABG results: PT/INR, D-dimer PT 15.4 Seconds (9.4-12.1) H 09/18/18 02:58 - Impressions Impressions Chest X-Ray 09/17/18 12:30 IMPRESSION: 1. Mild pulmonary vascular congestion. D/ / Jorden Montes MD / Jorden Montes MD Interpreting Provider: Jorden Montes MD Chest CTA 09/18/18 01:49 IMPRESSION: 1. No scan evidence for pulmonary embolus. 2. Findings suggest congestive heart failure. D/ / Sina Quesada MD / Sina Quesada MD Interpreting Provider: Sina Quesada MD <Etta Weeks - Last Filed: 09/18/18 13:15> (1) CAD (coronary artery disease) Qualifiers: Coronary Disease-Associated Artery/Lesion type: [place]reafski artery [place] vs. transplanted heart: andreafski heart Associated angina: without angina Qualified Code(s): I25.10 - Atherosclerotic heart disease of andreafski coronary artery without angina pectoris (3) Diabetes mellitus Qualifiers: Diabetes mellitus type: type 2 Diabetes mellitus halfway insulin use: without extermination supervisor use Diabetes mellitus complication status: with unspecified complications Qualified Code(s): E11.8 - Type 2 diabetes mellitus with unspecified complications (6) HLD (hyperlipidemia) Qualifiers: Hyperlipidemia type: pure hypercholesterolemia Qualified Code(s): E78.00 - Pure hypercholesterolemia, unspecified; E78.0 - Pure hypercholesterolemia (7) HTN (hypertension) Qualifiers: Hypertension type: essential hypertension Qualified Code(s): I10 - Essential (primary) hypertension (9) Atrial flutter Qualifiers: Atrial flutter type: unspecified Qualified Code(s): I48.92 - Unspecified atrial flutter <Nela Malcolm - Last Filed: 09/18/18 15:30> (1) Atrial flutter Qualifiers: Atrial flutter type: unspecified Qualified Code(s): I48.92 - Unspecified atrial flutter (2) Dyspnea Qualifiers: Dyspnea type: unspecified Qualified Code(s): R06.00 - Dyspnea, unspecified (3) CAD (coronary artery disease) Qualifiers: Coronary Disease-Associated Artery/Lesion type: [place]reafski artery [place] vs. transplanted heart: andreafski heart Associated angina: without angina Qualified Code(s): I25.10 - Atherosclerotic heart disease of [place]reaf[place] coronary artery without angina pectoris (4) Diabetes mellitus Qualifiers: Diabetes mellitus type: type 2 Diabetes mellitus halfway insulin use: without extermination supervisor use Diabetes mellitus complication status: with unspecified complications Qualified Code(s): E11.8 - Type 2 diabetes mellitus with unspecified complications (5) HLD (hyperlipidemia) Qualifiers: Hyperlipidemia type: pure hypercholesterolemia Qualified Code(s): E78.00 - Pure hypercholesterolemia, unspecified; E78.0 - Pure hypercholesterolemia (6) HTN (hypertension) Qualifiers: Hypertension type: essential hypertension Qualified Code(s): I10 - Essential (primary) hypertension
[2018-09-18] MEDS: Amiodarone Premix 360 MG/200 ML BAG IVC SCH ×2 (10:24→22:25)
[2018-09-18] MEDS: Metoprolol XL (24 HR) Succ 25 MG TAB.ER.24H PO SCH (11:16)
--- NOTE | 2018-09-18 13:29 | Anesthesia Evaluation PreOp ---
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: Denies Any Significant HX Other Medical History: Renal (prostate cancer), Diabetes Type II Anesthesia History: No Prior Anesthetic Complications, Past Anesthesia (prostatectomy, stents) Alcohol Use: occasionally Drug use: none Medications and Allergies Atorvastatin [Lipitor] 40 mg PO HS 05/21/15 [History] Carvedilol 3.125 mg PO DAILY 05/21/15 [History] Cholecalciferol (Vitamin D3) [Vitamin D3] 1,000 unit PO DAILY 05/21/15 [History] metFORMIN [Glucophage] 500 mg PO BIDWM 05/21/15 [History] Nitroglycerin [Nitrostat] 0.4 mg SL AD PRN 11/07/15 [History] Aspirin [Lo-Dose Aspirin EC] 81 mg PO DAILY 09/07/18 [History] Cetirizine HCl 10 mg PO DAILY 09/07/18 [History] Vitamin E Acetate [Vitamin E] 400 unit PO DAILY 09/07/18 [History] Allergy/AdvReac Type Severity Reaction Status Date / Time Sulfa (Sulfonamide Allergy Hives Verified 09/07/18 15:32 Antibiotics) oxycodone [Oxycodone] AdvReac Dizziness Verified 09/07/18 15:32 - Meds/Allergy Pre-op Review Medications Reviewed: Yes Allergies Reviewed: Yes Beta Blockers on Current Med List: Yes If Beta Blockers taken, Date/Time (Last Dose taken): today 1116 Anesthesia Results - Labs 09/18/18 02:58 09/18/18 02:58 - Imaging Additional studies: Impressions: LVEF 55%. Asymmetric basal septal hypertrophy without LVOT obstruction. Mild left ventricular diastolic dysfunction. Normal right ventricular structure and function. Mild aortic regurgitation. No pulmonary hypertension. Anesthesia Exam Selected Entries 09/18/18 11:25 Temperature 98.4 F Pulse Rate 140 Respiratory Rate 20 Blood Pressure 116/90 O2 Sat by Pulse Oximetry 91 Oxygen Delivery Method Nasal Cannula Weight: 83kg - HEENT Pupil (Motor): EOMI Mallampati: II Oral Opening: Greater than 3 - [employer]T[place] FILLER LOC: Oriented [place] FILLER Motor: Normal RUE, Normal LUE, Normal RLE, Normal LLE, Normal Face ANT[place]QUE[place] FILLER Sensory: Normal: RUE, LUE, RLE, LLE, Face - Cardiac Rhythm: Irregular Murmur: None - Pulmonary Breath Sounds: bilateral Clear Respiratory Effort: Symmetrical Anesthesia Assess/Plan ASA Score: 4 Level of consciousness: Cooperative Anesthetic Plan: MAC Monitoring Plan: Standard Monitors Recovery Plan: Other (agrees to MAC)
[2018-09-18] MEDS ORDERED: 0.9 % Sodium Chloride 500 ML ONE (13:54)
--- NOTE | 2018-09-18 14:51 | Electrocardiograph Report ---
[address] [address] Test Date: 2018-09-18 Pat Name: Delroy Aguilar Department: 110 Room: 2N07 Gender: M Athletic Agent: : [id number] Requested By: Diego Ashby Order Number: [id number] Reading MD: Jordan Cid Measurements Intervals [place] Rate: 141 P: HI: 0 QRS: -40 QRSD: 87 T: 216 QT: 360 QTc: 442 Interpretive Statements ATRIAL FLUTTER/TACHYCARDIA WITH RAPID VENTRICULAR RESPONSE MARKED LEFT AXIS DEVIATION ST-T CHANGES DUE TO RATE Electronically Signed On 09-18-2018 14:50:20 EDT by Jordan Cid
[2018-09-18] MEDS ORDERED: *HR* PHENYLEPHRINE 1,000 MCG/10 ML SYRINGE IVP ONE (14:53)
[2018-09-18] MEDS ORDERED: Ondansetron 4 MG/2 ML VIAL IVP PRN (15:00)
[2018-09-18] MEDS: Heparin 25,000 UNIT/250 ML D5W 25,000 UNIT/250 ML IV.SOLN IVC SCH (16:18)
[2018-09-18] MEDS: Benzonatate 100 MG CAPSULE PO PRN (22:52)
[2018-09-19 07:41] LABS: Basophils % 0.2 %; Eosinophils % 0.1 %; Hematocrit 39.1 % (37.5-50.1); Hemoglobin 12.9 g/dL (12.9-16.9); Immature Granulocytes % 0.6 % (0-4); Lymphocytes # 1.8 K/mcL (0.6-4.6); Lymphocytes % 10.9 %; Mean Corpuscular Hemoglobin 31.6 pg (28.0-33.3); Mean Corpuscular Volume 95.8 fL (83.0-100.0); Mean Platelet Volume 10.2 fL (9.4-12.4); Monocytes # 1.1 K/mcL (0.0-1.3); Monocytes % 6.4 %; Neutrophils # 13.6 K/mcL (1.6-8.9); Platelet Count 263 K/mcL (140-400); Red Blood Count 4.08 M/mcL (4.19-5.50); Red Cell Distribution Width 13.5 % (11.5-14.5); Segmented Neutrophils % 81.8 %
[2018-09-19 07:57] LABS: BUN/Creatinine Ratio 18 (6-26); Blood Urea Nitrogen 17 mg/dL (8-23); Carbon Dioxide 23 mEq/L (23-29); Chloride 101 mEq/L (98-107); Glucose 164 mg/dL (70-105); Osmolality,Calculated 283 (280-300); Potassium 3.5 mEq/L (3.5-5.1); Sodium 134 mEq/L (136-145); eGFR For Non-African Americans > 60 (> 60)
[2018-09-19] MEDS ORDERED: Furosemide 40 MG/4 ML VIAL IVP ONE (08:22)
[2018-09-19] MEDS ORDERED: Potassium Chloride 40 MEQ, Lidocaine 1% 2 ML in D5% in Water 500 ML IVPB ONE (08:22)
[2018-09-19] MEDS: Metoprolol XL (24 HR) Succ 25 MG TAB.ER.24H PO SCH (09:26)
[2018-09-19] MEDS: Aspirin Enteric Coated 81 MG Tablet PO SCH (09:26)
[2018-09-19] MEDS: Insulin LISPRO 300 UNITS/3 ML VIAL SQ SCH ×4 (09:26→20:52)
--- NOTE | 2018-09-19 09:40 | Cardiology Progress Note ---
Date of Encounter: 09/19/18 Time of Encounter: 09:38 Assessment and Plan (1) Atrial flutter Current Visit: Yes Status: Acute Hx PAF. Presented A-Flutter RVR HR 160s. Was started on amio gtt d/t hypotension--currently at 0.5mg/min. Home medication was Coreg 3.125 listed as daily. Switched to PO Toprol 25mg daily. Unable to rate control on Amio and BB, underwent CARYN/DCCV 09/18. No LA or DANIEL thrombus. Successful synchronized DCCV of atrial flutter. LVEF 20%. Severely globally decreased LV systolic function. Moderately reduced RV systolic function. TTE 09/07 EF was preserved, mild AR. Will stop Amio gtt and start PO Amio 200mg BID x 1 week then reduce to daily. [id number] (Age, HTN, CAD, DM). High CVA risk. Currently on heparin gtt. Previously not on AC d/t hematuria. Per pt, this was several years ago with no hematuria recently. HGB stable. Continue heparin gtt for now. Will need [place] prior to d/c for new CMP. Will hernandez check NOACs and plan to start prior to d/c. Qualifiers: Atrial flutter type: unspecified Qualified Code(s): I48.92 - Unspecified atrial flutter (2) CAD (coronary artery disease) Current Visit: Yes Status: Chronic Hx BMS x 2 to LCx, most recent 2013. Continue ASA, Statin, BB. Qualifiers: Coronary Disease-Associated Artery/Lesion type: [place] artery [place] vs. transplanted heart: [place] heart Associated angina: without angina Qualified Code(s): I25.10 - Atherosclerotic heart disease of [place] coronary artery without angina pectoris (3) Acute systolic CHF (congestive heart failure) Current Visit: Yes Status: Acute Presents with dyspnea. CTA suggestive of CHF. CXR repeated 09/18. Findings of acute pulmonary edema have developed with small pleural effusions. On IV Lasix 40mg BID. Continue. On 12L O2 NC currently. TTE 09/07/18 EF 55%, mild LVDD. On CARYN 09/18 EF is reduced to 20%, global. Recommend strict I/Os, Na and fluid restriction, daily weights. (4) Cardiomyopathy Current Visit: Yes Status: Acute TTE 09/07/18 EF 55%, mild LVDD. On CARYN 09/18 EF is reduced to 20%, global. Newly reduced, suspect tachycardia induced given A-Flutter RVR, but pt also has CAD hx with BMS in 2013. Recommend LHC to r/o ischemic cause once able to lie flat. Currently sitting up requiring 12 L O2. Continue diuresis and re-evaluate in AM for LHC. NPO after midnight. Continue BB and ACEi. Qualifiers: Cardiomyopathy type: unspecified Qualified Code(s): I42.9 - Cardiomyopathy, unspecified Discussion w patient/family: The assessment and plan as outlined above was discussed with the patient and/or family members who expressed understanding and agreement. All questions were answered. Thank you for involving us in the care of your patient. Please call with any questions. I will discuss all the above with Dr. Cid and make changes as necessary. Subjective Principal diagnosis: CHF, A-Flutter RVR Interval history: Reports dyspnea, but improved from yesterday. Objective Vital Signs, Last 4 Hours Temp Pulse Resp BP Pulse Ox 09/19/18 08:09 98.6 F 76 18 109/70 94 09/19/18 07:35 97 Vital Signs Temp Pulse Resp BP Pulse Ox 09/19/18 08:09 98.6 F 76 18 109/70 94 09/19/18 07:35 97 09/19/18 03:38 22 98 09/19/18 03:10 97.0 F L 87 20 132/77 94 09/19/18 00:19 34 91 09/18/18 23:58 98.9 F 93 19 140/95 88 09/18/18 22:16 18 89 09/18/18 19:42 98.7 F 85 20 124/82 90 09/18/18 16:21 99.4 F 85 22 111/80 89 09/18/18 11:25 98.4 F 140 20 116/90 91 Intake and Output 09/18/18 09/19/18 09/19/18 23:59 07:59 15:59 Intake Total 450 / 1095 0 / 480 480 / 480 Balance 450 / 795 0 / 480 480 / 480 Intake: IV Fluids 450 / 735 Amiodarone Drip Premix 360mg/ 200 / 400 200mL 360 mg In 200 ml @ 0.5 MG /MIN 16.667 mls/hr IVC CONT SANDRA Rx#:[id number] Heparin 25,000 UNIT/250 ML D5W 250 / 335 25,000 unit In 250 ml @ 14 UNIT /KG/HR 11.812 mls/hr IVC . [id number] SANDRA Rx#:[id number] Oral 0 / 360 0 / 480 480 / 480 Other: Meal Breakfast Percent of Meal Consumed 50% # Urine Diapers 1 1 Blood Glucose* 179 167 General: Conversant, No Apparent Distress HEENT: Atraumatic, Normocephaly, Mucus Membranes Moist Neck: Normal carotid pulses Cardiac: Reg Rate and Rhythm, Normal S1 and S2, No Murmur Lungs: Other (diminished) Neuro: Alert and responsive, No focal deficits noted Abdomen: Soft, Non-Tender Skin: No rashes noted on visualized skin Musculoskeletal: No Chest Wall Tenderness Extremities: No Clubbing, No Cyanosis, No Edema, Normal Pulses Results 09/19/18 06:25 09/19/18 06:25 Lab Results 09/19/18 09/19/18 06:25 06:25 WBC 16.7 H Hgb 12.9 Hct 39.1 Plt Count 263 Sodium 134 L Potassium 3.5 Chloride 101 Carbon Dioxide 23 BUN 17 Creatinine 0.97 Glucose 164 H Calcium 9.0 Short CBC 09/19/18 Range/Units 06:25 WBC 16.7 H (4.3-11.1) K/mcL Hgb 12.9 (12.9-16.9) g/dL Hct 39.1 (37.5-50.1) % Plt Count 263 (140-400) K/mcL Neutrophils # 13.6 H (1.6-8.9) K/mcL BMP 09/19/18 Range/Units 06:25 Sodium 134 L (136-145) mEq/L Potassium 3.5 (3.5-5.1) mEq/L Chloride 101 (98-107) mEq/L Carbon Dioxide 23 (23-29) mEq/L BUN 17 (8-23) mg/dL Creatinine 0.97 (0.70-1.30) mg/dL Glucose 164 H (70-105) mg/dL Calcium 9.0 (8.6-10.3) mg/dL Impressions Chest X-Ray 09/18/18 13:05 IMPRESSION: Findings of acute pulmonary edema have developed with small pleural effusions. D/ / Isacc Campos MD / Isacc Campos MD Interpreting Provider: Isacc Campos MD Active Medications Acetaminophen (Tylenol) 650 mg PO Q6HR PRN PRN Reason: Mild Pain/Fever Stop: 03/19/19 17:29 Aspirin (Aspirin Ec) 81 mg PO DAILY SANDRA Stop: 03/20/19 09:01 Last Admin: 09/18/18 08:16 Dose: 81 mg Documented by: Atorvastatin Calcium (Lipitor) 40 mg PO HS SANDRA Stop: 03/19/19 21:01 Last Admin: 09/18/18 21:00 Dose: 40 mg Documented by: Benzonatate (Tessalon) 100 mg PO TID PRN PRN Reason: Cough Stop: 03/20/19 22:17 Last Admin: 09/18/18 22:52 Dose: 100 mg Documented by: Dextrose/Water (Dextrose 50% (Syg)) 25 ml IVP AD PRN PRN Reason: Hypoglycemia Stop: 03/19/19 17:33 Furosemide (Lasix) 40 mg IVP DAILY SANDRA Stop: 03/22/19 09:01 Glucagon (Glucagen) 1 mg IM ONCE PRN PRN Reason: Hypoglycemia Stop: 03/19/19 17:33 Glucose (Gluctose) 15 gm PO ONCE PRN PRN Reason: Hypoglycemia Stop: 03/19/19 17:33 Glucose (Gluctose) 30 gm PO ONCE PRN PRN Reason: Hypoglycemia Stop: 03/19/19 17:33 Heparin Sodium (Porcine) (Heparin) 5,900 unit 70 unit/kg (5900 unit) IVP Q6HR PRN PRN Reason: SEE COMMENTS Stop: 03/19/19 17:33 Heparin Sodium (Porcine) (Heparin) 3,000 unit 35 unit/kg (3000 unit) IVP Q6H PRN PRN Reason: SEE COMMENTS Stop: 03/19/19 17:33 Amiodarone HCl/Dextrose (Amiodarone Drip Premix 360mg/200ml) 360 mg in 200 mls @ 16.667 mls/hr IVC CONT SANDRA Stop: 03/19/19 22:31 Last Admin: 09/18/18 22:25 Dose: 0.5 mg/min, 16.7 mls/hr Documented by: Dextrose (Dextrose 5%) 1,000 mls @ 100 mls/hr IVC .Q10H PRN PRN Reason: HYPOGLYCEMIA Stop: 03/19/19 17:33 Heparin Sodium/Dextrose (Heparin 25,000 Unit/250 Ml D5w) 25,000 unit in 250 mls @ 11.812 mls/hr IVC .[id number] [facility]; Protocol Stop: 03/19/19 17:46 Last Admin: 09/18/18 16:18 Dose: 14 unit/kg/hr, 11.8 mls/hr Documented by: Potassium Chloride 40 meq/ (Lidocaine 2 ml/ Dextrose) 522 mls @ 130.5 mls/hr IVPB ONCE ONE Stop: 09/19/18 12:21 Insulin Human Lispro (Humalog) 0 units SQ TIDAC [facility]; Protocol Stop: 03/20/19 07:31 Last Admin: 09/18/18 18:12 Dose: 6 units Documented by: Insulin Human Lispro (Humalog) 0 units SQ HS [facility]; Protocol Stop: 03/19/19 21:01 Last Admin: 09/18/18 21:01 Dose: Not Given Documented by: Levalbuterol HCl (Xopenex) 0.63 mg IH [id number] PRN PRN Reason: Shortness Of Breath Stop: 03/20/19 04:01 Last Admin: 09/18/18 22:16 Dose: 0.63 mg Documented by: Melatonin (Melatonin) 3 mg PO HS PRN PRN Reason: Insomnia Stop: 03/19/19 23:01 Last Admin: 09/17/18 23:21 Dose: 3 mg Documented by: Metoprolol Succinate (Toprol Xl) 25 mg PO DAILY [facility] Stop: 03/20/19 10:46 Last Admin: 09/18/18 11:16 Dose: 25 mg Documented by: Naloxone HCl (Narcan) 0.4 mg IVP Q2MPRN PRN PRN Reason: SEE COMMENTS Stop: 03/19/19 17:29 Nitroglycerin (Nitroglycerin) 0.4 mg SL Q5MPRN PRN PRN Reason: Chest Pain Stop: 03/19/19 17:32 Ondansetron HCl (Zofran) 4 mg IVP Q6HR PRN; Protocol PRN Reason: Nausea Stop: 03/20/19 15:01 Last Admin: 09/18/18 15:17 Dose: 4 mg Documented by: - Imaging and Cardiology Echo: report reviewed - EKG Interpretation EKG results cardiology: other (12 hr tele AVG HR 81, SR) Consult Discharge Plan - Plan Referrals: Per Fisher MD [Primary Care Provider] - 09/26/18 10:15 am
--- NOTE | 2018-09-19 10:19 | Internal Med Progress Note ---
<Nela Malcolm - Last Filed: 09/19/18 13:58> Hospitalist Progress Note - Encounter Date of Encounter: 09/19/18 Time of Encounter: 08:30 - Subjective Interval History: Patient seen and examined at bedside today. Overnight he was having desaturations and placed on BiPAP as well as CPAP which he does use at home for sleep apnea. He is status post cardioversion yesterday for his atrial flutter. He continues to be in normal sinus rhythm today. He is currently on nasal cannula. He states that his respiratory distress is somewhat improved since cardioversion yesterday. He admits to some esophageal irritation and some coughing after the cardioversion however Tessalon helped his symptoms. He denies any palpitations, heat admits to increased urination secondary to Lasix. He denies nausea, vomiting, fever, chills, chest pain, palpitations, productive cough, pleuritic pain, abdominal pain, diarrhea, constipation, melena, hematochezia, dysuria, hematuria, calf pain or edema. - Exam Vitals: Temp Pulse Resp BP Pulse Ox 98.6 F 76 18 109/70 94 09/19/18 08:09 09/19/18 08:09 09/19/18 08:09 09/19/18 08:09 09/19/18 08:09 Exam: Gen: Vitals noted. Mild distress. AAOx3, Sitting up in bed eating breakfast, nasal cannula in place. HEENT: PERRL/EOMI, oropharynx clear, Normocephalic, atraumatic, MMM Cardiac: No JVD, regular rate and rhythm, no murmur, +S1/S2, radial and dorsal pedis pulses 2+ and symmetrical Pulmonary: Mild rhonchi at lung bases bilaterally, improved since yesterday, no wheezes, no rales, equal chest expansion Abdomen: soft, nontender, BS noted, no guarding, no rebound. Reducible umbilical hernia. MSK: ROM intact, no joint swelling noted Extremities: Trace lower extremity edema bilaterally, no calf tenderness, no cyanosis or clubbing Neuro: A&Ox3, moves all extremities, no focal deficits Psych: Appropriate mood and behavior - Assessment and Plan (1) Atrial flutter Current Visit: Yes Status: Acute Assessment and Plan: Status post CARYN guided cardioversion yesterday- continues to be in normal sinus rhythm Presented with complaint of shortness of breath, palpitations, weakness Known history of atrial fibrillation, not on anticoagulation secondary to an episode of hematuria several years ago. Chadsvasc score of 5 Chest x-ray 09/17/18 showed mild pulmonary vascular congestion Chest CTA-no evidence of pulmonary embolus, small bilateral pleural effusions Chest x-ray 09/18/18 showed acute pulmonary edema with small pleural effusions Continue heparin drip Per cardiology-patient started on metoprolol succinate and carvedilol was discontinued. amiodarone drip has been discontinued and by mouth amiodarone twice a day has been started to decrease to once a day in one week. NOAC recs pending. (2) Dyspnea Current Visit: Yes Status: Acute Assessment and Plan: Improvement after cardioversion Continues to have increased oxygen requirement Continue Xopenex, Tessalon Perles Continue diuresis with Lasix Continue oxygen supplementation, CPAP at night (3) Acute systolic CHF (congestive heart failure) Current Visit: Yes Status: Acute Assessment and Plan: Patient presented with dyspnea, palpitations, weakness Prior echocardiogram 09/07/18-LVEF 55%, asymmetric basal septal hypertrophy without LVOT obstruction, mild left ventricular diastolic dysfunction, normal right ventricular structure and function, mild aortic regurgitation, no pulmonary hypertension. CARYN cardioversion-LVEF 20%, severely globally decreased LV systolic function, moderately reduced right ventricular systolic function. Chest x-ray 09/18/18-acute pulmonary edema with small pleural effusions Daily weights Strict I and O- urology was consulted to place Mckenna in order to measure strict I and O's as patient has a history of prostatectomy as well as bladder clamp Lasix 40 mg IV twice a day (4) Cardiomyopathy Current Visit: Yes Status: Acute Assessment and Plan: Newly reduced ejection fraction, 09/07/18 55%, 09/18/18 ejection fraction 20% Suspected to be secondary to atrial flutter with also history of coronary artery disease Cardiology recommends left heart catheter prior to discharge once patient able to lie flat They will reassess patient tomorrow after continuing diuresis Nothing by mouth at midnight (5) CAD (coronary artery disease) Current Visit: Yes Status: Chronic Assessment and Plan: Patient has history of coronary artery disease status post stents 2008, stent 2013 Pharmacological stress test 10/17- negative for ischemia Initial EKG showed some ST depressions which could be secondary to demand ischemia Troponins 0.03, 0.03, 0.04, 0.03 Continue aspirin, metoprolol, atorvastatin Sublingual nitroglycerin as needed for chest pain Continue telemetry Tentative left heart catheter tomorrow (6) Diabetes mellitus Current Visit: Yes Status: Chronic Assessment and Plan: History of diabetes mellitus Continue low-dose sliding scale Continue to monitor (7) HLD (hyperlipidemia) Current Visit: Yes Status: Chronic Assessment and Plan: Continue atorvastatin (8) HTN (hypertension) Current Visit: Yes Status: Chronic Assessment and Plan: Continue metoprolol (9) LILLI on CPAP Current Visit: Yes Status: Chronic Assessment and Plan: CPAP at night (10) SIRS (systemic inflammatory response syndrome) Current Visit: Yes Status: Acute Assessment and Plan: SIRS criteria-leukocytosis 16.6, tachycardia, tachypnea Recent UTI as well as pneumonia-adequately treated Suspect reactive, secondary to atrial flutter as opposed to infection. No raffi rce of infection identified urine culture shows no growth Blood cultures remain pending Currently no need for antibiotics or fluid resuscitation. DVT Prophylaxis: Heparin drip - Time Spent with Patient Total time spent is greater than 50% in coordination of care (as documented) at patient's floor/unit and/or counseling patient: Internal Medicine: Result - Labs CBC & Chem 7: 09/19/18 06:25 09/19/18 06:25 Labs: Short CBC 09/19/18 Range/Units 06:25 WBC 16.7 H (4.3-11.1) K/mcL Hgb 12.9 (12.9-16.9) g/dL Hct 39.1 (37.5-50.1) % Plt Count 263 (140-400) K/mcL Neutrophils # 13.6 H (1.6-8.9) K/mcL BMP 09/19/18 06:25 Sodium 134 L Potassium 3.5 Chloride 101 Carbon Dioxide 23 BUN 17 Creatinine 0.97 Glucose 164 H Calcium 9.0 - ABG Interpretation ABG results: PT/INR, D-dimer PT 15.4 Seconds (9.4-12.1) H 09/18/18 02:58 - Impressions Impressions Chest X-Ray 09/18/18 13:05 IMPRESSION: Findings of acute pulmonary edema have developed with small pleural effusions. D/ / Isacc Campos MD / Isacc Campos MD Interpreting Provider: Isacc Campos MD Consult Discharge Plan - Plan Referrals: Per Fisher MD [Primary Care Provider] - 09/26/18 10:15 am <Etta Weeks - Last Filed: 09/19/18 20:12> Hospitalist Progress Note - Encounter Date of Encounter: 09/19/18 - Exam Vitals: Temp Pulse Resp BP Pulse Ox 99.4 F 88 17 123/87 90 09/19/18 19:46 09/19/18 19:46 09/19/18 19:46 09/19/18 19:46 09/19/18 19:46 - Assessment and Plan (1) CAD (coronary artery disease) Current Visit: Yes Status: Chronic (2) LILLI on CPAP Current Visit: Yes Status: Chronic (3) Diabetes mellitus Current Visit: Yes Status: Chronic (4) History of prostate cancer Current Visit: Yes Status: Chronic (5) SOB (shortness of breath) Current Visit: Yes Status: Acute (6) HLD (hyperlipidemia) Current Visit: Yes Status: Chronic (7) HTN (hypertension) Current Visit: Yes Status: Chronic (8) DVT prophylaxis Current Visit: Yes Status: Acute (9) Atrial flutter Current Visit: Yes Status: Acute (10) SIRS (systemic inflammatory response syndrome) Current Visit: Yes Status: Acute - Time Spent with Patient Total time spent is greater than 50% in coordination of care (as documented) at patient's floor/unit and/or counseling patient: Internal Medicine: Result - Labs CBC & Chem 7: 09/19/18 06:25 09/19/18 06:25 Labs: Short CBC 09/19/18 Range/Units 06:25 WBC 16.7 H (4.3-11.1) K/mcL Hgb 12.9 (12.9-16.9) g/dL Hct 39.1 (37.5-50.1) % Plt Count 263 (140-400) K/mcL Neutrophils # 13.6 H (1.6-8.9) K/mcL BMP 09/19/18 06:25 Sodium 134 L Potassium 3.5 Chloride 101 Carbon Dioxide 23 BUN 17 Creatinine 0.97 Glucose 164 H Calcium 9.0 - ABG Interpretation ABG results: PT/INR, D-dimer PT 15.4 Seconds (9.4-12.1) H 09/18/18 02:58 - Impressions Impressions Chest X-Ray 09/18/18 13:05 IMPRESSION: Findings of acute pulmonary edema have developed with small pleural effusions. D/ / Isacc Campos MD / Isacc Campos MD Interpreting Provider: Isacc Campos MD - Attending Attestation I examined this patient and my medical decision-making was reviewed with the Resident Physician Dr Malcolm. I agree with the documented findings, disposition and treatment plan as described except to the extent set forth below. Mr Aguilar is admitted with refractory aflutter on amio and hep gtt awake, alert, on o2 nc, not currently sob. no cp, pressure or palpitations. discussed mckenna being placed and will need urology given hx of strictures. He cannot control his urine at this time and need strict i/os gen- alert, awake,appears stated age cv-reg rate and rhythm, normal s1,s2, no murmurs appreciated, trace pitting bl le no jvd, warm extremities, lungs- crackles bl bases, normal reps effort on o2 high flow abd- soft, non tender, non distended, + bs neuro- AAOx3, CN grossly intact Arrhythmia, suspected Aflutter when slowed with adenosine pAfib hx not on AC ischemic and infectious work up as potential etiologies s/p DCCV 09/18 -cards following -now po amio, toprol xl -hep gtt -LHC this admission, possibly in am CAD s/p PCI 2013 HTN, hypotensive in ED trop 0.03, peak 0.04 -cont asa + statin, bb -lhc as above New systolic CHF , acute exacerbation likley stunned myocardium ,rule out ischemia with acute hypoxic resp failure -strict i/os, urology for mckenna placement given hx -IV lasix, BB -ischemic work up -o2 support prn Met sepsis criteria technically HR is from Aflutter refractory to treatment, Leukocytosis very well may be reactive, afebrile At this time I do not believe this is sepsis but rather a cardiac issue aware of Recent ESBL UTI + possible pna in last week though sxs are all resolved would have completed levaquin course 09/13 -CXR and CTA no pna,or PE -UA sent to cx, bl cxs ngtd -hold abx at this time as likely related to aflutter on admit DM- hold oral agent, SSI further diagnoses and plan as noted by resident <Nela Malcolm - Last Filed: 09/19/18 13:58> (1) Atrial flutter Qualifiers: Atrial flutter type: unspecified Qualified Code(s): I48.92 - Unspecified atrial flutter (2) Dyspnea Qualifiers: Dyspnea type: unspecified Qualified Code(s): R06.00 - Dyspnea, unspecified (4) Cardiomyopathy Qualifiers: Cardiomyopathy type: unspecified Qualified Code(s): I42.9 - Cardiomyopathy, unspecified (5) CAD (coronary artery disease) Qualifiers: Coronary Disease-Associated Artery/Lesion type: [place] artery [place] vs. transplanted heart: [place] heart Associated angina: without angina Qualified Code(s): I25.10 - Atherosclerotic heart disease of [place] coronary artery without angina pectoris (6) Diabetes mellitus Qualifiers: Diabetes mellitus type: type 2 Diabetes mellitus intermediate insulin use: without terminal computer operator use Diabetes mellitus complication status: with unspecified complications Qualified Code(s): E11.8 - Type 2 diabetes mellitus with unspecified complications (7) HLD (hyperlipidemia) Qualifiers: Hyperlipidemia type: pure hypercholesterolemia Qualified Code(s): E78.00 - Pure hypercholesterolemia, unspecified; E78.0 - Pure hypercholesterolemia (8) HTN (hypertension) Qualifiers: Hypertension type: essential hypertension Qualified Code(s): I10 - Essential (primary) hypertension <Etta Weeks - Last Filed: 09/19/18 20:12> (1) CAD (coronary artery disease) Qualifiers: Coronary Disease-Associated Artery/Lesion type: [place] artery [place] vs. transplanted heart: [place] heart Associated angina: without angina Qualified Code(s): I25.10 - Atherosclerotic heart disease of [place] coronary artery without angina pectoris (3) Diabetes mellitus Qualifiers: Diabetes mellitus type: type 2 Diabetes mellitus intermediate insulin use: without intermediate use Diabetes mellitus complication status: with unspecified complications Qualified Code(s): E11.8 - Type 2 diabetes mellitus with unspecified complications (6) HLD (hyperlipidemia) Qualifiers: Hyperlipidemia type: pure hypercholesterolemia Qualified Code(s): E78.00 - Pure hypercholesterolemia, unspecified; E78.0 - Pure hypercholesterolemia (7) HTN (hypertension) Qualifiers: Hypertension type: essential hypertension Qualified Code(s): I10 - Essential (primary) hypertension (9) Atrial flutter Qualifiers: Atrial flutter type: unspecified Qualified Code(s): I48.92 - Unspecified atrial flutter
[2018-09-19] MEDS: *HR* Amiodarone 200 MG TABLET PO SCH ×2 (10:54→20:49)
[2018-09-19] MEDS: Heparin 25,000 UNIT/250 ML D5W 25,000 UNIT/250 ML IV.SOLN IVC SCH (13:08)
--- NOTE | 2018-09-19 17:06 | Urology - Consult Note ---
Date of Encounter: 09/19/18 Time of Encounter: 17:04 - Assessment and Plan (1) Urethral stricture Current Visit: No Status: Acute Assessment and plan: Patient developed urinary incontinence post prostatectomy. His incontinence is malodorous placement of artificial urinary sphincter. She works for possibly 10 years then the patient develop urethral erosion after Higuera catheter placement for unrelated medical condition. His artificial urinary stent was removed and the patient's is widely developed urethral stricture disease. He eventually underwent repair of urethral stricture disease and has been voiding with slow and steady decrease in force of stream over the last several years. He presents now for hospital admission for CHF related issues. Patient has been diuresed and needs strict I and O monitoring. We have asked to see the patient placed Higuera catheter given his history and prior difficult Higuera's. Under sterile technique a 12[place] Higuera catheter was easily placed at bedside without difficulty. Patient tolerated catheter placed without difficulty. He was not in dani urinary retention. Plan: Voiding trial by primary service once strict I and O monitoring is no longer required. Please call if patient unable to void post Higuera catheter removal. Qualifiers: Urethral stricture type: post-procedural Qualified Code(s): N99.111 - Postprocedural bulbous urethral stricture, male Urology CN:HPI Consult date: 09/19/18 Reason for consult Urology: Difficult Higuera History of present illness: Mr. Aguilar is a 83 year old male with past medical history of atrial fibrillation, prostate cancer status post prostatectomy, CAD, diabetes, hypertension, hyperlipidemia. He is presenting to the emergency room with a complaint of shortness of breath and high heart rate starting today. Patient states that he has had these symptoms off and on for the past couple days but now as been constant since this morning. He has never had these symptoms in the past. He has had a diagnosis of atrial fibrillation for many years but denies admissions for rapid ventricular response. He is not on home anticoagulation. He states he was on many years ago but was taken off by his photovoltaic testing technician prior to his surgery never put back on. Shortness of breath is present at rest and worsened with exertion. He admits to a chest discomfort but denies pain. Discomfort his worse when his shortness of breath is worsened. He denies any exertional components. He did take one nitroglycerin yesterday which did help a little bit. He denies any symptoms of fevers, chills, chest pain, nausea, vomiting, numbness, tingling, dysuria, urinary frequency. He admitted to 1 episode of diarrhea over the weekend but states this has resolved. Denies any vision changes. Of note, he was recently admitted to this facility on 09/06-09/09 and diagnosed with UTI with ESBL Escherichia coli as well as pneumonia. He states that his symptoms from that have resolved and he did complete his course of antibiotics (levaquin with mucinex), scheduled to complete on 09/13/18. He denies any other changes in medication. He did admit to a camping trip this weekend which was without event. In the emergency room, vital signs were initially significant for heart rate of 160 and blood pressure of 107/58. He was tolerating 96% oxygen on room air but was given 2 L oxygen for patient comfort. Laboratory results were significant for mild leukocytosis 12.6, bicarbonate of 22, otherwise within normal limits including magnesium, troponin, TSH. Chest x-ray showed mild pulmonary vascular congestion. EKG was obtained and showed supraventricular tachycardia with rate in the 150s to 160s. Also noted was left axis deviation, QT prolongation at 474, early R-wave progression with possible LVH, ST depression in V4, V5. Patient was initially treated with adenosine which did slow his rate down temporarily at which time a rhythm of atrial flutter was observed on telemetry strip. Patient was started on esmolol drip, however patient's blood pressure did not tolerate this. At this time, cardiology was consulted who recommended an amiodarone drip. He was also given 1 L normal saline bolus. During time of my interview, patient is currently asymptomatic with no concerns of chest pain, shortness of breath, palpitations, lightheaded, dizziness. Heart rate remains in the 150s and blood pressure has improved to the 120s/80s. We are called to place Higuera due to his history of urethral stricture, prostatectomy, reverse urinary sphincter placement with erosion and removal, urethral repair. Past Med Surg Social Fam HX - Past Medical History Medical history: arthritis, atrial fibrillation, cancer, coronary artery disease, diabetes, hyperlipidemia, hypertension, other Additional medical history: Prostate cancer Psychiatric history: no psych history - Past Surgical History Surgical History: angioplasty/stent (x2), prostatectomy Additional surgical history: 2008, 2013 heart cath with stent x 2. prostatectomy 1992 - Social History Smoking Status: Never smoker Smokeless Tobacco Status: No Alcohol use: occasionally Drug use: none - Family History Mother Family Member Ethnicity: Non- Living Status: Hx Family Cardiac Disorders: Yes (HTN, HLD, CAD) Hx Family Endocrine Disorder: Yes (DM) Father Family Member Ethnicity: Non- Living Status: Hx Family Cardiac Disorders: Yes (CAD) Brother Family Member Ethnicity: Non- Living Status: Hx Family Cardiac Disorders: Yes (HD, Heart murmur) Medications and Allergies Atorvastatin [Lipitor] 40 mg PO HS 05/21/15 [History] Carvedilol 3.125 mg PO DAILY 05/21/15 [History] Cholecalciferol (Vitamin D3) [Vitamin D3] 1,000 unit PO DAILY 05/21/15 [History] metFORMIN [Glucophage] 500 mg PO BIDWM 05/21/15 [History] Nitroglycerin [Nitrostat] 0.4 mg SL AD PRN 11/07/15 [History] Aspirin [Lo-Dose Aspirin EC] 81 mg PO DAILY 09/07/18 [History] Cetirizine HCl 10 mg PO DAILY 09/07/18 [History] Vitamin E Acetate [Vitamin E] 400 unit PO DAILY 09/07/18 [History] Allergy/AdvReac Type Severity Reaction Status Date / Time Sulfa (Sulfonamide Allergy Hives Verified 09/07/18 15:32 Antibiotics) oxycodone [Oxycodone] AdvReac Dizziness Verified 09/07/18 15:32 Review of Systems - Constitutional no chills, no fever(s) - EENT Nose, mouth and throat: no dry mouth, no headache(s) - Cardiovascular no diaphoresis, no edema - Respiratory no cough, no dyspnea - Gastrointestinal no abdominal pain, no fecal incontinence - Genitourinary change in urinary stream, no hematuria - Musculoskeletal no back pain, no muscle weakness - Integumentary no lesions, no rash - Neurological no confusion, no sensory deficit - Psychiatric no anxiety, no confusion - Hematologic/Lymphatic no easy bleeding, no easy bruising - Allergic/Immunologic no throat swelling, no wheezing Exam Initial Vital Signs Temp Pulse Resp BP Pulse Ox 98.2 F 160 18 107/58 96 09/17/18 12:20 09/17/18 12:20 09/17/18 12:20 09/17/18 12:20 09/17/18 12:20 - General physical appearance Present: well nourished, no distress - Eyes Present: normal ocular movement - ENT Present: normal nares, normal mucosa - Neck Present: trachea midline - Respiratory Present: normal respiratory effort - Abdomen Abdomen: Present: soft, non tender - Genitourinary normal penis with no external lesions, testicles present - Integumentary Present: no rash, no growths - Neurologic Present: normal coordination - Musculoskeletal Present: other (Normal strength in extremities bilaterally) Urology Results - Labs 09/19/18 06:25 09/19/18 06:25 Abnormal lab results WBC 16.7 K/mcL (4.3-11.1) H 09/19/18 06:25 RBC 4.08 M/mcL (4.19-5.50) L 09/19/18 06:25 MPV 9.1 fL (9.4-12.4) L 09/18/18 02:58 13.6 K/mcL (1.6-8.9) H 09/19/18 06:25 PT 15.4 Seconds (9.4-12.1) H 09/18/18 02:58 Heparin Anti-Xa, Unfract 0.00 IU/mL (0.30-0.70) L 09/17/18 17:49 Sodium 134 mEq/L (136-145) L 09/19/18 06:25 Carbon Dioxide 22 mEq/L (23-29) L 09/18/18 02:58 Glucose 164 mg/dL (70-105) H 09/19/18 06:25 POC Glucose 179 mg/dL (70-99) H 09/18/18 21:00 0.04 ng/mL (< 0.04) H* 09/17/18 23:37 30 mg/dL (Neg-Trace) H 09/17/18 19:07 Ur Leukocyte Esterase Trace (Negative) H 09/17/18 19:07 5-15 per hpf (0-3) H 09/17/18 19:07 5-15 per hpf (0-3) H 09/17/18 19:07 Ur Squamous Epith Cells Many per lpf (None-Few) H 09/17/18 19:07 Ur Culture Indicated? YES (NO) A 09/17/18 19:07 Diabetes panel 09/19/18 Range/Units 06:25 Sodium 134 L (136-145) mEq/L Potassium 3.5 (3.5-5.1) mEq/L Chloride 101 (98-107) mEq/L Carbon Dioxide 23 (23-29) mEq/L BUN 17 (8-23) mg/dL Creatinine 0.97 (0.70-1.30) mg/dL Glucose 164 H (70-105) mg/dL Calcium 9.0 (8.6-10.3) mg/dL Calcium panel 09/19/18 Range/Units 06:25 Calcium 9.0 (8.6-10.3) mg/dL Pituitary panel 09/19/18 Range/Units 06:25 Sodium 134 L (136-145) mEq/L Potassium 3.5 (3.5-5.1) mEq/L Chloride 101 (98-107) mEq/L Carbon Dioxide 23 (23-29) mEq/L BUN 17 (8-23) mg/dL Creatinine 0.97 (0.70-1.30) mg/dL Glucose 164 H (70-105) mg/dL Calcium 9.0 (8.6-10.3) mg/dL Adrenal panel 09/19/18 Range/Units 06:25 Sodium 134 L (136-145) mEq/L Potassium 3.5 (3.5-5.1) mEq/L Chloride 101 (98-107) mEq/L Carbon Dioxide 23 (23-29) mEq/L BUN 17 (8-23) mg/dL Creatinine 0.97 (0.70-1.30) mg/dL Glucose 164 H (70-105) mg/dL Calcium 9.0 (8.6-10.3) mg/dL All other labs normal. Consult Discharge Plan - Plan Referrals: Per Fisher MD [Primary Care Provider] - 09/26/18 10:15 am
[2018-09-19] MEDS: Furosemide 40 MG/4 ML VIAL IVP SCH (17:17)
[2018-09-19] MEDS: Benzonatate 100 MG CAPSULE PO PRN (20:49)
[2018-09-20] MEDS: Insulin LISPRO 300 UNITS/3 ML VIAL SQ SCH ×4 (07:42→20:39)
[2018-09-20] MEDS: Metoprolol XL (24 HR) Succ 25 MG TAB.ER.24H PO SCH ×2 (07:44→20:40)
[2018-09-20] MEDS: Aspirin Enteric Coated 81 MG Tablet PO SCH (07:44)
[2018-09-20] MEDS: *HR* Amiodarone 200 MG TABLET PO SCH ×2 (07:44→20:37)
[2018-09-20] MEDS: Furosemide 40 MG/4 ML VIAL IVP SCH ×2 (07:45→15:15)
[2018-09-20 07:51] LABS: Basophils % 0.2 %; Eosinophils # 0.1 K/mcL (0.0-0.6); Eosinophils % 0.7 %; Hematocrit 40.2 % (37.5-50.1); Hemoglobin 13.4 g/dL (12.9-16.9); Immature Granulocytes % 0.6 % (0-4); Lymphocytes # 1.7 K/mcL (0.6-4.6); Lymphocytes % 13.5 %; Mean Corpuscular HGB Conc 33.3 g/dL (31.6-35.5); Mean Corpuscular Hemoglobin 31.2 pg (28.0-33.3); Mean Corpuscular Volume 93.7 fL (83.0-100.0); Mean Platelet Volume 9.3 fL (9.4-12.4); Monocytes # 0.8 K/mcL (0.0-1.3); Monocytes % 6.4 %; Neutrophils # 9.8 K/mcL (1.6-8.9); Platelet Count 314 K/mcL (140-400); Red Blood Count 4.29 M/mcL (4.19-5.50); Red Cell Distribution Width 13.3 % (11.5-14.5); Segmented Neutrophils % 78.6 %
[2018-09-20 08:06] LABS: BUN/Creatinine Ratio 16 (6-26); Blood Urea Nitrogen 14 mg/dL (8-23); Calcium 9.3 mg/dL (8.6-10.3); Carbon Dioxide 28 mEq/L (23-29); Chloride 100 mEq/L (98-107); Glucose 157 mg/dL (70-105); Osmolality,Calculated 286 (280-300); Potassium 3.7 mEq/L (3.5-5.1); Sodium 136 mEq/L (136-145); eGFR For Non-African Americans > 60 (> 60)
--- NOTE | 2018-09-20 08:08 | Internal Med Progress Note ---
<John Reynolds - Last Filed: 09/20/18 17:13> Hospitalist Progress Note - Encounter Date of Encounter: 09/20/18 Time of Encounter: 10:02 - Subjective Interval History: Patient was seen and examined at bedside this morning. He states that overall he is doing well. He states that he is having no difficulty in breathing, den ies any symptoms of chest pain, palpitations, lightheadedness or dizziness. He is having no nausea, vomiting or lower extremity edema. - Exam Vitals: Temp Pulse Resp BP Pulse Ox 98.5 F 124 15 104/80 89 09/20/18 07:35 09/20/18 07:35 09/20/18 07:35 09/20/18 07:35 09/20/18 07:35 Exam: Gen.: Vitals noted. No acute distress. AAOx3, resting comfortably in bed. Nasal cannula nausea and Plavix HEENT: PERRL/EOMI, oropharynx clear, Normocephalic, atraumatic, MMM Cardiac: Irregularly irregular rhythm, tachycardic, no murmur, +S1/S2, No BLE edema Pulmonary: Faint crackles at bases, otherwise CTA bilaterally, no wheezes, rales or rhonchi, equal chest expansion, unlabored breathing Abdomen: soft, nontender, BS noted, no guarding, no palpable HSM Skin: warm and dry, no visible lesions. MSK: ROM intact, no joint swelling noted, gait no assessed while in bed. Non tender calf or clubbing Neuro: A&Ox3, moves all extremities, no focal deficits, sensation intact, Psych: Appropriate mood and behavior, AOx3 - Assessment and Plan (1) Atrial flutter Current Visit: Yes Status: Acute Assessment and Plan: - AFlutter with RVR noted both on telemetry and EKG - rate uncontrolled in 150-160s - Patient does have known history, not on AC currently - CHADVASC 5 (age, HTN, CHF, DM) - Etiology for RVR is not clear at this time- no obvious signs of infection, ischemia, anemia, hypoxia - Patient recently treated for UTI and PNA from 09/06-09/09, may be related to levaquin or unresolved infection - Lower suspicion for PE, as patient has not been hypoxic. Also have a moderate suspicion for ischemia - Electrolytes acceptable levels, goal potassium 4-5, magnesium greater than 2 - Lipids on 09/07 are unremarkable. - TSH within normal limits - CXR shows mild pulm vascular congestion. CHF contributing? - Status post cardioversion on 09/18/18 which was initially successful in rhythm conversion to normal sinus rhythm. Rate has been much better controlled in the 70s and 80s since then. Overnight however, he did revert back to what appears to be atrial fibrillation and rate is elevated in the 120s this morning. - Started Heparin gtt for AC for now. Will discuss further during stay - Had recent cardiac workup including echo 09/07/18, was scheduled for outpatient follow up with cardiology - Stress test 09/2017- negative - No chest pain Plan - Cardiology consulted, appreciate recommendations - Current regimen includes digoxin loading, amiodarone orally, metoprolol - Continue heparin gtt - Trend magnesium, cbc, bmp - Per cardiology recommendation, patient would benefit from left heart cathet erization prior to discharge. Given patient's heart rate this morning, do not suspect of this will be today however awaiting cardiology recommendations (2) Acute systolic CHF (congestive heart failure) Current Visit: Yes Status: Acute Assessment and Plan: - Evidence of new onset CHF on CARYN on 09/18/18 - Ejection fraction of 20% with global systolic dysfunction - Previous echocardiogram on 09/07/18 shows ejection fraction of 55% with asymmetrical basal septal hypertrophy, mild diastolic dysfunction - Suspect that this is related to increased heart rate and decreased filling times - Cardiology is following, appreciate recommendations - Cumulative I/o of -15 mL Plan - Strict I/O's, Higuera catheter placed - Sodium and fluid restriction - Daily weights - Currently being diuresed with Lasix 40 mg IV twice a day per cardiology recommendations (3) CAD (coronary artery disease) Current Visit: Yes Status: Chronic Assessment and Plan: - Trop 0.03 admission with ejection to 0.03, 0.04 - EKG shows some ST depressions which may very well be related to demand ischemia from high heart rate. - As above (4) LILLI on CPAP Current Visit: Yes Status: Chronic Assessment and Plan: cpap at night (5) Diabetes mellitus Current Visit: Yes Status: Chronic Assessment and Plan: - 200s on admission - Has been relatively well-controlled throughout hospital course - Will start low SSI, hold home metformin - ADA diet (6) History of prostate cancer Current Visit: Yes Status: Chronic Assessment and Plan: s/p prostatectomy Urology consulted for Higurea catheter placement and need for strict I/os (7) HLD (hyperlipidemia) Current Visit: Yes Status: Chronic Assessment and Plan: continue statin (8) HTN (hypertension) Current Visit: Yes Status: Chronic Assessment and Plan: Most recently 104/80 Medications added by cardiology including digoxin, amiodarone, metoprolol as well as Lasix We will continue monitor on current regimen (9) SIRS (systemic inflammatory response syndrome) Current Visit: Yes Status: Acute Assessment and Plan: -WBC Elevated at 12.5, tachycardic - Recently admitted and treated for UTI as well as pneumonia - Suspect that this is most likely related to elevated heart rate, reactive - No obvious source of infection at this time - Chest x-ray shows mild pulmonary vascular congestion, no consolidations. - We will obtain urinalysis, monitor - Blood cultures 2 far, urine culture negative - Will not start abx at this time as there is no obvious source of infection - Will not give fluid boluses as patient has CHF and do not suspect infectious source. (10) DVT prophylaxis Current Visit: Yes Status: Acute Assessment and Plan: on heparin gtt (11) Cardiomyopathy Current Visit: Yes Status: Acute Assessment and Plan: as above cardiology recommending LHC prior to discharge to evaluate for ischemic causes - Time Spent with Patient Total time spent is greater than 50% in coordination of care (as documented) at patient's floor/unit and/or counseling patient: Internal Medicine: Result - Labs CBC & Chem 7: 09/20/18 07:22 09/20/18 07:22 Labs: Short CBC 09/20/18 Range/Units 07:22 WBC 12.5 H (4.3-11.1) K/mcL Hgb 13.4 (12.9-16.9) g/dL Hct 40.2 (37.5-50.1) % Plt Count 314 (140-400) K/mcL Neutrophils # 9.8 H (1.6-8.9) K/mcL BMP 09/20/18 07:22 Sodium 136 Potassium 3.7 Chloride 100 Carbon Dioxide 28 BUN 14 Creatinine 0.90 Glucose 157 H Calcium 9.3 - ABG Interpretation ABG results: PT/INR, D-dimer PT 15.4 Seconds (9.4-12.1) H 09/18/18 02:58 Consult Discharge Plan - Plan Referrals: Per Fisher MD [Primary Care Provider] - 09/26/18 10:15 am <Horace Carey - Last Filed: 09/20/18 20:38> Hospitalist Progress Note - Encounter Date of Encounter: 09/20/18 - Exam Vitals: Temp Pulse Resp BP Pulse Ox 98.6 F 112 18 106/66 91 09/20/18 19:07 09/20/18 19:07 09/20/18 19:07 09/20/18 19:07 09/20/18 19:07 - Assessment and Plan (1) CAD (coronary artery disease) Current Visit: Yes Status: Chronic (2) LILLI on CPAP Current Visit: Yes Status: Chronic (3) Diabetes mellitus Current Visit: Yes Status: Chronic (4) History of prostate cancer Current Visit: Yes Status: Chronic (5) HLD (hyperlipidemia) Current Visit: Yes Status: Chronic (6) HTN (hypertension) Current Visit: Yes Status: Chronic (7) DVT prophylaxis Current Visit: Yes Status: Acute (8) Atrial flutter Current Visit: Yes Status: Acute (9) SIRS (systemic inflammatory response syndrome) Current Visit: Yes Status: Acute (10) Acute systolic CHF (congestive heart failure) Current Visit: Yes Status: Acute (11) Cardiomyopathy Current Visit: Yes Status: Acute - Time Spent with Patient Total time spent is greater than 50% in coordination of care (as documented) at patient's floor/unit and/or counseling patient: Internal Medicine: Result - Labs CBC & Chem 7: 09/20/18 07:22 09/20/18 07:22 Labs: Short CBC 09/20/18 Range/Units 07:22 WBC 12.5 H (4.3-11.1) K/mcL Hgb 13.4 (12.9-16.9) g/dL Hct 40.2 (37.5-50.1) % Plt Count 314 (140-400) K/mcL Neutrophils # 9.8 H (1.6-8.9) K/mcL BMP 09/20/18 07:22 Sodium 136 Potassium 3.7 Chloride 100 Carbon Dioxide 28 BUN 14 Creatinine 0.90 Glucose 157 H Calcium 9.3 - ABG Interpretation ABG results: PT/INR, D-dimer PT 15.4 Seconds (9.4-12.1) H 09/18/18 02:58 - Attending Attestation I examined this patient and my medical decision-making was reviewed with the Resident Physician. I agree with the documented findings, disposition and treatment plan as described except to the extent set forth below. <John Reynolds - Last Filed: 09/20/18 17:13> (1) Atrial flutter Qualifiers: Atrial flutter type: unspecified Qualified Code(s): I48.92 - Unspecified atrial flutter (3) CAD (coronary artery disease) Qualifiers: Coronary Disease-Associated Artery/Lesion type: [place] artery [place] vs. transplanted heart: [place] heart Associated angina: without angina Qualified Code(s): I25.10 - Atherosclerotic heart disease of [place] coronary artery with out angina pectoris (5) Diabetes mellitus Qualifiers: Diabetes mellitus type: type 2 Diabetes mellitus mcc insulin use: without mcc use Diabetes mellitus complication status: with unspecified complications Qualified Code(s): E11.8 - Type 2 diabetes mellitus with unspecified complications (7) HLD (hyperlipidemia) Qualifiers: Hyperlipidemia type: pure hypercholesterolemia Qualified Code(s): E78.00 - Pure hypercholesterolemia, unspecified; E78.0 - Pure hypercholesterolemia (8) HTN (hypertension) Qualifiers: Hypertension type: essential hypertension Qualified Code(s): I10 - Essential (primary) hypertension (11) Cardiomyopathy Qualifiers: Cardiomyopathy type: unspecified Qualified Code(s): I42.9 - Cardiomyopathy, unspecified <Horace Carey - Last Filed: 09/20/18 20:38> (1) CAD (coronary artery disease) Qualifiers: Coronary Disease-Associated Artery/Lesion type: [place] artery [place] vs. transplanted heart: [place] heart Associated angina: without angina Qualified Code(s): I25.10 - Atherosclerotic heart disease of [place] coronary artery without angina pectoris (3) Diabetes mellitus Qualifiers: Diabetes mellitus type: type 2 Diabetes mellitus mcc insulin use: without long chain beamer use Diabetes mellitus complication status: with unspecified complications Qualified Code(s): E11.8 - Type 2 diabetes mellitus with unspecified complications (5) HLD (hyperlipidemia) Qualifiers: Hyperlipidemia type: pure hypercholesterolemia Qualified Code(s): E78.00 - Pure hypercholesterolemia, unspecified; E78.0 - Pure hypercholesterolemia (6) HTN (hypertension) Qualifiers: Hypertension type: essential hypertension Qualified Code(s): I10 - Essential (primary) hypertension (8) Atrial flutter Qualifiers: Atrial flutter type: unspecified Qualified Code(s): I48.92 - Unspecified atrial flutter (11) Cardiomyopathy Qualifiers: Cardiomyopathy type: unspecified Qualified Code(s): I42.9 - Cardiomyopathy, unspecified
[2018-09-20] MEDS ORDERED: *HR* Digoxin 0.5 MG/2 ML AMPUL IVP ONE (08:52)
[2018-09-20] MEDS ORDERED: Furosemide 40 MG/4 ML VIAL IVP SCH (09:00)
--- NOTE | 2018-09-20 09:05 | Urology Progress Note ---
Date of Encounter: 09/20/18 Time of Encounter: 08:50 - Assessment and Plan (1) Urinary incontinence due to urethral sphincter incompetence Current Visit: No Status: Chronic Assessment and plan: Patient is an 83-year-old male who presents with urethral stricture disease requiring catheter placement by urologist. Higuera catheter is indwelling and draining sufficiently. Catheter removal order to be driven by primary team. Urology will sign off, but we are always available as needed. Progress Note Narrative: Patient seen and examined sitting upright in bed in no apparent distress. Higuera catheter indwelling and draining transparent, clearly urine into bedside bag. Objective Initial Vital Signs Temp Pulse Resp BP Pulse Ox 98.2 F 160 18 107/58 96 09/17/18 12:20 09/17/18 12:20 09/17/18 12:20 09/17/18 12:20 09/17/18 12:20 - General physical appearance Present: no distress, no pain - Respiratory Present: normal expansion, normal respiratory effort - Abdomen Absent: distended - Genitourinary Urine Appearance: Present: Clear - Integumentary Present: no rash, no abnormal pigmentation - Musculoskeletal Present: normal posture - Psychiatric Present: other (Patient resting) - Labs 09/20/18 07:22 09/20/18 07:22 Diabetes panel 09/20/18 Range/Units 07:22 Sodium 136 (136-145) mEq/L Potassium 3.7 (3.5-5.1) mEq/L Chloride 100 (98-107) mEq/L Carbon Dioxide 28 (23-29) mEq/L BUN 14 (8-23) mg/dL Creatinine 0.90 (0.70-1.30) mg/dL Glucose 157 H (70-105) mg/dL Calcium 9.3 (8.6-10.3) mg/dL Calcium panel 09/20/18 Range/Units 07:22 Calcium 9.3 (8.6-10.3) mg/dL Pituitary panel 09/20/18 Range/Units 07:22 Sodium 136 (136-145) mEq/L Potassium 3.7 (3.5-5.1) mEq/L Chloride 100 (98-107) mEq/L Carbon Dioxide 28 (23-29) mEq/L BUN 14 (8-23) mg/dL Creatinine 0.90 (0.70-1.30) mg/dL Glucose 157 H (70-105) mg/dL Calcium 9.3 (8.6-10.3) mg/dL Adrenal panel 09/20/18 Range/Units 07:22 Sodium 136 (136-145) mEq/L Potassium 3.7 (3.5-5.1) mEq/L Chloride 100 (98-107) mEq/L Carbon Dioxide 28 (23-29) mEq/L BUN 14 (8-23) mg/dL Creatinine 0.90 (0.70-1.30) mg/dL Glucose 157 H (70-105) mg/dL Calcium 9.3 (8.6-10.3) mg/dL Consult Discharge Plan - Plan Referrals: Per Fisher MD [Primary Care Provider] - 09/26/18 10:15 am
[2018-09-20] MEDS: Heparin 25,000 UNIT/250 ML D5W 25,000 UNIT/250 ML IV.SOLN IVC SCH (10:45)
--- NOTE | 2018-09-20 11:17 | Cardiology Progress Note ---
Date of Encounter: 09/20/18 Time of Encounter: 11:17 Assessment and Plan (1) Atrial flutter Current Visit: Yes Status: Acute Hx PAF. Presented A-Flutter RVR HR 160s. Was loaded with IV amio. Unable to rate control on Amio and BB, underwent CARYN/DCCV 09/18. No LA or DANIEL thrombus. Successful synchronized DCCV of atrial flutter. LVEF 20%--newly reduced. Possible tachycardia induced. Pt went into A-Fib RVR overnight, HR 130s at bedside. Discussed with Dr. Cid. Continue PO Amio 200mg BID. Increase Toprol XL to 25mg BID. Will load with IV digoxin--0.5mg, 0.25x2. EP consult tomorrow for further recs. [id number] 5 (Age, HTN, CAD, DM). High CVA risk. Currently on heparin gtt. Previously not on AC d/t hematuria. Per pt, this was several years ago with no hematuria recently. HGB stable. Continue heparin gtt for now. Will need [facility] prior to d/c for new CMP. [place] check on Eliquis is $47/month, affordable. Plan to start after ischemic eval and prior to d/c. Qualifiers: Atrial flutter type: unspecified Qualified Code(s): I48.92 - Unspecified atrial flutter (2) CAD (coronary artery disease) Current Visit: Yes Status: Chronic Hx BMS x 2 to LCx, most recent 2013. Continue ASA, Statin, BB. Qualifiers: Coronary Disease-Associated Artery/Lesion type: [place] artery [place] vs. transplanted heart: [place] heart Associated angina: without angina Qualified Code(s): I25.10 - Atherosclerotic heart disease of [place] coronary artery without angina pectoris (3) Acute systolic CHF (congestive heart failure) Current Visit: Yes Status: Acute Presents with dyspnea. CTA suggestive of CHF. CXR repeated 09/18. Findings of acute pulmonary edema have developed with small pleural effusions. On IV Lasix 40mg BID. Continue. On 4L O2 NC currently--improving. TTE 09/07/18 EF 55%, mild LVDD. On CARYN 09/18 EF is reduced to 20%, global. Recommend strict I/Os, Na and fluid restriction, daily weights. (4) Cardiomyopathy Current Visit: Yes Status: Acute TTE 09/07/18 EF 55%, mild LVDD. On CARYN 09/18 EF is reduced to 20%, global. Newly reduced, suspect tachycardia induced given A-Flutter RVR, but pt also has CAD hx with BMS in 2013. Recommend LHC to r/o ischemic cause once better rate controlled. Continue BB and ACEi. Qualifiers: Cardiomyopathy type: unspecified Qualified Code(s): I42.9 - Cardiomyopathy, unspecified Discussion w patient/family: The assessment and plan as outlined above was discussed with the patient and/or family members who expressed understanding and agreement. All questions were answered. Thank you for involving us in the care of your patient. Please call with any questions. I will discuss all the above with Dr. Cid and make changes as necessary. Subjective Principal diagnosis: CHF, A-Flutter RVR Interval history: Reports dyspnea, but improved. Pt went into A-Fib RVR overnight. Objective Vital Signs, Last 4 Hours Temp Pulse Resp BP Pulse Ox 09/20/18 07:45 98.5 F 124 15 104/80 89 09/20/18 07:35 98.5 F 124 15 104/80 89 Vital Signs Temp Pulse Resp BP Pulse Ox 09/20/18 07:45 98.5 F 124 15 104/80 89 09/20/18 07:35 98.5 F 124 15 104/80 89 09/20/18 04:19 97.8 F 81 17 119/70 95 09/20/18 00:30 99.2 F 79 20 107/74 94 09/19/18 19:46 99.4 F 88 17 123/87 90 09/19/18 16:52 98.9 F 81 18 118/78 92 09/19/18 11:50 98.3 F 74 18 116/73 93 Intake and Output 09/19/18 09/20/18 09/20/18 23:59 07:59 15:59 Intake Total 120 / 1290 40 / 290 250 / 290 Output Total 1949 / 0 1949 / 1949 Balance -1830 / -860 -1910 / -1660 250 / -1660 Intake: IV Fluids 250 / 250 Heparin 25,000 UNIT/250 ML D5W 250 / 250 25,000 unit In 250 ml @ 14 UNIT /KG/HR 11.812 mls/hr IVC . [id number] SANDRA Rx#:[id number] Oral 120 / 840 40 / 40 0 / 40 Output: Urine 900 / 900 Catheter 1950 / 1950 1050 / 1050 Other: Meal Dinner NPO Percent of Meal Consumed 100% 0% Blood Glucose* 216 149 General: Conversant, No Apparent Distress HEENT: Atraumatic, Normocephaly, Mucus Membranes Moist Neck: No JVD, Normal carotid pulses Cardiac: Other (irregularly irregular) Lungs: Other (diminished) Neuro: Alert and responsive, No focal deficits noted Abdomen: Soft, Non-Tender Skin: No rashes noted on visualized skin Musculoskeletal: No Chest Wall Tenderness Extremities: No Clubbing, No Cyanosis, No Edema, Normal Pulses Results 09/20/18 07:22 09/20/18 07:22 Lab Results 09/20/18 09/20/18 07:22 07:22 WBC 12.5 H Hgb 13.4 Hct 40.2 Plt Count 314 Sodium 136 Potassium 3.7 Chloride 100 Carbon Dioxide 28 BUN 14 Creatinine 0.90 Glucose 157 H Calcium 9.3 Short CBC 09/20/18 Range/Units 07:22 WBC 12.5 H (4.3-11.1) K/mcL Hgb 13.4 (12.9-16.9) g/dL Hct 40.2 (37.5-50.1) % Plt Count 314 (140-400) K/mcL Neutrophils # 9.8 H (1.6-8.9) K/mcL BMP 09/20/18 Range/Units 07:22 Sodium 136 (136-145) mEq/L Potassium 3.7 (3.5-5.1) mEq/L Chloride 100 (98-107) mEq/L Carbon Dioxide 28 (23-29) mEq/L BUN 14 (8-23) mg/dL Creatinine 0.90 (0.70-1.30) mg/dL Glucose 157 H (70-105) mg/dL Calcium 9.3 (8.6-10.3) mg/dL Active Medications Acetaminophen (Tylenol) 650 mg PO Q6HR PRN PRN Reason: Mild Pain/Fever Stop: 03/19/19 17:29 Amiodarone HCl (Cordarone) 200 mg PO BID [facility] Stop: 03/21/19 09:55 Last Admin: 09/20/18 07:44 Dose: 200 mg Documented by: Aspirin (Aspirin Ec) 81 mg PO DAILY [facility] Stop: 03/20/19 09:01 Last Admin: 09/20/18 07:44 Dose: 81 mg Documented by: Atorvastatin Calcium (Lipitor) 40 mg PO HS [facility] Stop: 03/19/19 21:01 Last Admin: 09/19/18 20:49 Dose: 40 mg Documented by: Benzonatate (Tessalon) 100 mg PO TID PRN PRN Reason: Cough Stop: 03/20/19 22:17 Last Admin: 09/19/18 20:49 Dose: 100 mg Documented by: Dextrose/Water (Dextrose 50% (Syg)) 25 ml IVP AD PRN PRN Reason: Hypoglycemia Stop: 03/19/19 17:33 Digoxin (Lanoxin) 0.25 mg IVP Q6H [facility] Stop: 09/20/18 21:01 Furosemide (Lasix) 40 mg IVP BIDDIURETIC SANDRA Stop: 03/21/19 17:01 Last Admin: 09/20/18 07:45 Dose: 40 mg Documented by: Glucagon (Glucagen) 1 mg IM ONCE PRN PRN Reason: Hypoglycemia Stop: 03/19/19 17:33 Glucose (Gluctose) 15 gm PO ONCE PRN PRN Reason: Hypoglycemia Stop: 03/19/19 17:33 Glucose (Gluctose) 30 gm PO ONCE PRN PRN Reason: Hypoglycemia Stop: 03/19/19 17:33 Heparin Sodium (Porcine) (Heparin) 5,900 unit 70 unit/kg (5900 unit) IVP Q6HR PRN PRN Reason: SEE COMMENTS Stop: 03/19/19 17:33 Heparin Sodium (Porcine) (Heparin) 3,000 unit 35 unit/kg (3000 unit) IVP Q6H PRN PRN Reason: SEE COMMENTS Stop: 03/19/19 17:33 Dextrose (Dextrose 5%) 1,000 mls @ 100 mls/hr IVC .Q10H PRN PRN Reason: HYPOGLYCEMIA Stop: 03/19/19 17:33 Heparin Sodium/Dextrose (Heparin 25,000 Unit/250 Ml D5w) 25,000 unit in 250 mls @ 11.812 mls/hr IVC .[id number] SANDRA; Protocol Stop: 03/19/19 17:46 Last Admin: 09/20/18 10:45 Dose: 15.99 unit/kg/hr, 13.5 mls/hr Documented by: Insulin Human Lispro (Humalog) 0 units SQ TIDAC SANDRA; Protocol Stop: 03/20/19 07:31 Last Admin: 09/20/18 07:42 Dose: Not Given Documented by: Insulin Human Lispro (Humalog) 0 units SQ HS SANDRA; Protocol Stop: 03/19/19 21:01 Last Admin: 09/19/18 20:52 Dose: 2 units Documented by: Levalbuterol HCl (Xopenex) 0.63 mg IH [id number] PRN PRN Reason: Shortness Of Breath Stop: 03/20/19 04:01 Last Admin: 09/18/18 22:16 Dose: 0.63 mg Documented by: Melatonin (Melatonin) 3 mg PO HS PRN PRN Reason: Insomnia Stop: 03/19/19 23:01 Last Admin: 09/17/18 23:21 Dose: 3 mg Documented by: Metoprolol Succinate (Toprol Xl) 25 mg PO BID [facility] Stop: 03/22/19 21:01 Naloxone HCl (Narcan) 0.4 mg IVP Q2MPRN PRN PRN Reason: SEE COMMENTS Stop: 03/19/19 17:29 Nitroglycerin (Nitroglycerin) 0.4 mg SL Q5MPRN PRN PRN Reason: Chest Pain Stop: 03/19/19 17:32 Ondansetron HCl (Zofran) 4 mg IVP Q6HR PRN; Protocol PRN Reason: Nausea Stop: 03/20/19 15:01 Last Admin: 09/18/18 15:17 Dose: 4 mg Documented by: - EKG Interpretation EKG results cardiology: other (12 hr tele AVG HR 99 A-Fib) Consult Discharge Plan - Plan Referrals: Per Fisher MD [Primary Care Provider] - 09/26/18 10:15 am
[2018-09-20] MEDS: *HR* Digoxin 0.5 MG/2 ML AMPUL IVP SCH ×2 (15:15→20:37)
[2018-09-20] MEDS ORDERED: MOM Conc 10 ML UD.LIQ PO ONE (18:02)
[2018-09-20] MEDS: Docusate Oral Soln 100 MG/10 ML UDC PO SCH (20:39)
[2018-09-21 00:40] LABS: Basophils % 0.3 %; Eosinophils # 0.1 K/mcL (0.0-0.6); Hematocrit 43.3 % (37.5-50.1); Hemoglobin 14.4 g/dL (12.9-16.9); Immature Granulocytes % 0.6 % (0-4); Lymphocytes # 2.2 K/mcL (0.6-4.6); Mean Corpuscular HGB Conc 33.3 g/dL (31.6-35.5); Mean Corpuscular Hemoglobin 31.7 pg (28.0-33.3); Mean Corpuscular Volume 95.4 fL (83.0-100.0); Mean Platelet Volume 9.1 fL (9.4-12.4); Monocytes # 0.8 K/mcL (0.0-1.3); Monocytes % 6.3 %; Neutrophils # 9.2 K/mcL (1.6-8.9); Platelet Count 310 K/mcL (140-400); Red Blood Count 4.54 M/mcL (4.19-5.50); Red Cell Distribution Width 13.2 % (11.5-14.5); Segmented Neutrophils % 73.8 %
[2018-09-21 00:59] LABS: BUN/Creatinine Ratio 19 (6-26); Blood Urea Nitrogen 18 mg/dL (8-23); Carbon Dioxide 30 mEq/L (23-29); Chloride 100 mEq/L (98-107); Glucose 129 mg/dL (70-105); Osmolality,Calculated 286 (280-300); Potassium 3.8 mEq/L (3.5-5.1); Sodium 136 mEq/L (136-145); eGFR For Non-African Americans > 60 (> 60)
[2018-09-21] MEDS: Heparin 25,000 UNIT/250 ML D5W 25,000 UNIT/250 ML IV.SOLN IVC SCH (06:45)
[2018-09-21] MEDS: Insulin LISPRO 300 UNITS/3 ML VIAL SQ SCH ×4 (09:42→21:18)
[2018-09-21] MEDS: Docusate Oral Soln 100 MG/10 ML UDC PO SCH (09:43)
[2018-09-21] MEDS: Aspirin Enteric Coated 81 MG Tablet PO SCH (09:44)
[2018-09-21] MEDS: Furosemide 40 MG/4 ML VIAL IVP SCH ×2 (09:44→17:30)
[2018-09-21] MEDS: *HR* Amiodarone 200 MG TABLET PO SCH ×2 (09:44→21:18)
[2018-09-21] MEDS: Metoprolol XL (24 HR) Succ 25 MG TAB.ER.24H PO SCH (09:44)
--- NOTE | 2018-09-21 13:44 | Internal Med Progress Note ---
<RlreginalddalemandieNela - Last Filed: 09/21/18 14:10> Hospitalist Progress Note - Encounter Date of Encounter: 09/21/18 Time of Encounter: 09:15 - Subjective Interval History: Patient seen and examined at bedside today. He states that he continued to have an irregular heart rate and rhythm night. He states his breathing has improved, he attempted CPAP last night by the machine was beeping and she removed it and slept well was just nasal cannula. He denies any chest pain or palpitations overnight. He continues to have an irritated throat and a mild nonproductive cough. He did have a bowel movement yesterday. He denies nausea, vomiting, fever, chills, chest pain, pleuritic pain, abdominal pain, diarrhea, constipation, melena, chest, dysuria, hematuria, calf pain, edema. - Exam Vitals: Temp Pulse Resp BP Pulse Ox 97.9 F 112 18 101/67 94 09/21/18 11:43 09/21/18 11:43 09/21/18 11:43 09/21/18 11:43 09/21/18 11:43 Exam: Gen.: Vitals noted. No acute distress. AAOx3, resting comfortably in bed. HEENT: PERRL/EOMI, oropharynx clear, Normocephalic, atraumatic, mucous membranes dry Cardiac: Irregularly irregular rhythm, tachycardic, no murmur, +S1/S2, No BLE edema Pulmonary: Mild crackles at bilateral lung bases, no wheezes or rhonchi, equal chest expansion, unlabored breathing, nasal cannula in place Abdomen: soft, nontender, BS noted, no guarding, no palpable HSM MSK: ROM intact, no joint swelling noted, gait no assessed while in bed. Extremities: No calf tenderness, no edema Neuro: A&Ox3, moves all extremities, no focal deficits Psych: Appropriate mood and behavior, pleasant - Assessment and Plan (1) Atrial flutter Current Visit: Yes Status: Acute Assessment and Plan: Presents with atrial flutter with RVR History of atrial fibrillation ChadVasc score of 5 Chest x-ray 09/17/18 showed mild pulmonary vascular congestion Chest CTA-no evidence of pulmonary embolus, small bilateral pleural effusions Chest x-ray 09/18/18 showed acute pulmonary edema with small pleural effusions Status post cardioversion 09/18/18 which was successful and he converted to normal sinus rhythm however 2 nights ago he did recover back into atrial fibrillation with rate elevated. This continues today. Continue heparin drip for anticoagulation, patient to be switched to eliquis on discharge Continue amiodarone, metoprolol, patient was digoxin loaded yesterday As patient not rate controlled, cardiology to do electrophysiology consult Will need left heart catheter prior to discharge Further recommendations per cardiology pending (2) Acute systolic CHF (congestive heart failure) Current Visit: Yes Status: Acute Assessment and Plan: New onset CHF noted during CARYN and cardioversion CARYN cardioversion-LVEF 20%, severely globally decreased LV systolic function, moderately reduced right ventricular systolic function. echo 09/07/18 LVEF 55%, asymmetric basal septal hypertrophy without LVOT obstruction, mild left ventricular diastolic dysfunction, normal right ventricular structure and function, mild aortic regurgitation, no pulmonary hypertension. Continue diuresis with Lasix Strict TESSIE, [place] placed by urology daily weights (3) Cardiomyopathy Current Visit: Yes Status: Acute Assessment and Plan: Management as above Left heart catheter prior to discharge (4) CAD (coronary artery disease) Current Visit: Yes Status: Chronic Assessment and Plan: History of coronary artery disease Status post stenting 2 Pharmacological stress test 10/17- negative for ischemia Initial EKG showed some ST depressions which could be secondary to demand ischemi Troponin 0.03, 0.03, 0.04, 0.03 Continue aspirin, metoprolol, atorvastatin (5) Diabetes mellitus Current Visit: Yes Status: Chronic Assessment and Plan: Continue low-dose sliding scale (6) HLD (hyperlipidemia) Current Visit: Yes Status: Chronic Assessment and Plan: Continue atorvastatin (7) HTN (hypertension) Current Visit: Yes Status: Chronic Assessment and Plan: Continue metoprolol (8) LILLI on CPAP Current Visit: Yes Status: Chronic Assessment and Plan: Continue CPAP at night (9) SIRS (systemic inflammatory response syndrome) Current Visit: Yes Status: Acute Assessment and Plan: SIRS criteria on admission-leukocytosis 16.6, tachycardia, tachypnea Recent UTI as well as pneumonia-adequately treated Suspect reactive, secondary to atrial flutter as opposed to infection. No source of infection identified Currently afebrile, leukocytosis 12.4, tachycardic intermittently urine culture shows no growth Blood cultures no growth to date Currently no need for antibiotics or fluid resuscitation. - Time Spent with Patient Total time spent is greater than 50% in coordination of care (as documented) at patient's floor/unit and/or counseling patient: Internal Medicine: Result - Labs CBC & Chem 7: 09/21/18 00:21 09/21/18 00:21 Labs: Short CBC 09/21/18 Range/Units 00:21 WBC 12.4 H (4.3-11.1) K/mcL Hgb 14.4 (12.9-16.9) g/dL Hct 43.3 (37.5-50.1) % Plt Count 310 (140-400) K/mcL Neutrophils # 9.2 H (1.6-8.9) K/mcL BMP 09/21/18 00:21 Sodium 136 Potassium 3.8 Chloride 100 Carbon Dioxide 30 H BUN 18 Creatinine 0.94 Glucose 129 H Calcium 9.0 - ABG Interpretation ABG results: PT/INR, D-dimer PT 15.4 Seconds (9.4-12.1) H 09/18/18 02:58 Consult Discharge Plan - Plan Referrals: Per Fisher MD [Primary Care Provider] - 09/26/18 10:15 am <Horace Carey - Last Filed: 09/21/18 14:45> Hospitalist Progress Note - Encounter Date of Encounter: 09/21/18 - Exam Vitals: Temp Pulse Resp BP Pulse Ox 97.9 F 112 18 101/67 94 09/21/18 11:43 09/21/18 11:43 09/21/18 11:43 09/21/18 11:43 09/21/18 11:43 - Assessment and Plan (1) CAD (coronary artery disease) Current Visit: Yes Status: Chronic (2) LILLI on CPAP Current Visit: Yes Status: Chronic (3) Diabetes mellitus Current Visit: Yes Status: Chronic (4) History of prostate cancer Current Visit: Yes Status: Chronic (5) HLD (hyperlipidemia) Current Visit: Yes Status: Chronic (6) HTN (hypertension) Current Visit: Yes Status: Chronic (7) DVT prophylaxis Current Visit: Yes Status: Acute (8) Atrial flutter Current Visit: Yes Status: Acute (9) SIRS (systemic inflammatory response syndrome) Current Visit: Yes Status: Acute (10) Acute systolic CHF (congestive heart failure) Current Visit: Yes Status: Acute (11) Cardiomyopathy Current Visit: Yes Status: Acute - Time Spent with Patient Total time spent is greater than 50% in coordination of care (as documented) at patient's floor/unit and/or counseling patient: Internal Medicine: Result - Labs CBC & Chem 7: 09/21/18 00:21 09/21/18 00:21 Labs: Short CBC 09/21/18 Range/Units 00:21 WBC 12.4 H (4.3-11.1) K/mcL Hgb 14.4 (12.9-16.9) g/dL Hct 43.3 (37.5-50.1) % Plt Count 310 (140-400) K/mcL Neutrophils # 9.2 H (1.6-8.9) K/mcL BMP 09/21/18 00:21 Sodium 136 Potassium 3.8 Chloride 100 Carbon Dioxide 30 H BUN 18 Creatinine 0.94 Glucose 129 H Calcium 9.0 - ABG Interpretation ABG results: PT/INR, D-dimer PT 15.4 Seconds (9.4-12.1) H 09/18/18 02:58 - Attending Attestation I examined this patient and my medical decision-making was reviewed with the Resident Physician. I agree with the documented findings, disposition and treatment plan as described except to the extent set forth below. <Nela Rhoades - Last Filed: 09/21/18 14:10> (1) Atrial flutter Qualifiers: Atrial flutter type: unspecified Qualified Code(s): I48.92 - Unspecified atrial flutter (3) Cardiomyopathy Qualifiers: Cardiomyopathy type: unspecified Qualified Code(s): I42.9 - Cardiomyopathy, unspecified (4) CAD (coronary artery disease) Qualifiers: Coronary Disease-Associated Artery/Lesion type: [place] artery [place] vs. 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: without group home use Diabetes mellitus complication status: with unspecified complications Qualified Code(s): E11.8 - Type 2 diabetes mellitus with unspecified complications (6) HLD (hyperlipidemia) Qualifiers: Hyperlipidemia type: pure hypercholesterolemia Qualified Code(s): E78.00 - Pure hypercholesterolemia, unspecified; E78.0 - Pure hypercholesterolemia (7) HTN (hypertension) Qualifiers: Hypertension type: essential hypertension Qualified Code(s): I10 - Essential (primary) hypertension <Horace Carey - Last Filed: 09/21/18 14:45> (1) CAD (coronary artery disease) Qualifiers: Coronary Disease-Associated Artery/Lesion type: [place] artery [place] vs. transplanted heart: [place] heart Associated angina: without angina Qualified C ode(s): I25.10 - Atherosclerotic heart disease of [place] coronary artery without angina pectoris (3) Diabetes mellitus Qualifiers: Diabetes mellitus type: type 2 Diabetes mellitus group home insulin use: without group home use Diabetes mellitus complication status: with unspecified complications Qualified Code(s): E11.8 - Type 2 diabetes mellitus with unspecified complications (5) HLD (hyperlipidemia) Qualifiers: Hyperlipidemia type: pure hypercholesterolemia Qualified Code(s): E78.00 - Pure hypercholesterolemia, unspecified; E78.0 - Pure hypercholesterolemia (6) HTN (hypertension) Qualifiers: Hypertension type: essential hypertension Qualified Code(s): I10 - Essential (primary) hypertension (8) Atrial flutter Qualifiers: Atrial flutter type: unspecified Qualified Code(s): I48.92 - Unspecified atrial flutter (11) Cardiomyopathy Qualifiers: Cardiomyopathy type: unspecified Qualified Code(s): I42.9 - Cardiomyopathy, unspecified
[2018-09-21] MEDS ORDERED: *HR* Amiodarone 200 MG TABLET PO ONE (13:45)
--- NOTE | 2018-09-21 13:45 | Electrophysiology Consult Note ---
<Miranda Starks - Last Filed: 09/21/18 14:17> Date of Encounter: 09/21/18 Time of Encounter: 13:00 Assessment and Plan (1) Atrial flutter Current Visit: Yes Status: Acute Per EP: -Hx PAF. Presented A-Flutter RVR HR 160s. Was loaded with IV amio. -Unable to rate control on Amio and BB, underwent CARYN/DCCV 09/18. No LA or DANIEL thrombus. Successful synchronized DCCV of atrial flutter. LVEF 20%--newly reduced. Possible tachycardia induced. -Pt went into A-Fib RVR. OnPO Amio 200mg BID. On Toprol XL 25mg BID. Was loaded with IV digoxin--0.5mg, 0.25x2 on 09/20. -[id number] 5 (Age, HTN, CAD, DM). High CVA risk. Currently on heparin gtt. Previously not on AC d/t hematuria. Per pt, this was several years ago with no hematuria recently. HGB stable. Continue heparin gtt for now. -[employer] check on EliEXO5is is $47/month, affordable. Plan to start prior to d/c. -Of note, BP hypotensive. -Discussed and reviewed with Dr.John Vilchis, will stop toprol with hypotension. Will increase amiodarone to 400mg BID. -Recommend CARYN/DCCV in am if continues to be a.fib RVR. Qualifiers: Atrial flutter type: unspecified Qualified Code(s): I48.92 - Unspecified atrial flutter (2) Cardiomyopathy Current Visit: Yes Status: Acute Per EP: -TTE 09/07/18 EF 55%, mild LVDD. On CARYN 09/18 EF is reduced to 20%, global. Newly reduced, suspect tachycardia induced given A-Flutter RVR, but pt also has CAD hx with BMS in 2013. -Suspect tachycardia induced. -Not on BB/ACEi due to hypotension. -Discussed with Dr.John Vilchis, recommend rate control and repeat TTE in one month. If lVEF remains reduced, recommend [facility] as outpatient. -Consider addition of BB/ACEi if able prior to discharge Qualifiers: Cardiomyopathy type: unspecified Qualified Code(s): I42.9 - Cardiomyopathy, unspecified (3) Acute systolic CHF (congestive heart failure) Current Visit: Yes Status: Acute Per Ep: -Presents with dyspnea. CTA suggestive of CHF. CXR repeated 09/18. Findings of acute pulmonary edema have developed with small pleural effusions. -On IV Lasix 40mg BID. Continue. On 4L O2 NC currently--improving. -TTE 09/07/18 EF 55%, mild LVDD. On CARYN 09/18 EF is reduced to 20%, global. -Recommend strict I/Os, Na and fluid restriction, daily weights. Discussion w patient/family: The assessment and plan as outlined above was discussed with the patient and/or family members who expressed understanding and agreement. All questions were answered. Thank you for involving us in the care of your patient. Please call with any questions. Discussed and reviewed with Dr.John Vilchis. History of Present Illness Consult date: 09/21/18 Requesting physician: Lalit Cedeno Consult reason: a.fib RVR Chief complaint: shortness of breath, chest pain History of present illness: Mr. Aguilar is a 83 year old male with PMH of CAD, prior BMS x 2 to LCx, PAF, HTN, HLD, DM. Historically not on AC for PAF d/t hematuria, who presented to [facility] with complaints of shortness of breath and chest pressure. Patient was noted to be in a.flutter RVR and was initially placed on amiodarone drip. Patient then underwent CARYN/DCCV, successful. Patient's LVEF was noted to be newly reduced on CARYN. Patient then went into a.fib RVR. EP has been consulted. Today, patient states he feels improved. Denies chest pain. Reports shortness of breath is improved, however not back to baseline. Past Med Surg Social Fam HX - Past Medical History Attestation: Yes The following information was validated with the patient. Source: patient, old records reviewed Medical history: arthritis, atrial fibrillation, cancer, cardiomyopathy, co ronary artery disease, diabetes, hyperlipidemia, hypertension, other Additional medical history: Prostate cancer Psychiatric history: no psych history - Past Surgical History Surgical History: angioplasty/stent (x2), prostatectomy Additional surgical history: 2008, 2013 heart cath with stent x 2. prostatectomy 1992 - Social History Smoking Status: Never smoker Smokeless Tobacco Status: No Alcohol use: occasionally Drug use: none - Family History Mother Family Member Ethnicity: Non- Living Status: Hx Family Cardiac Disorders: Yes (HTN, HLD, CAD) Hx Family Endocrine Disorder: Yes (DM) Father Family Member Ethnicity: Non- Living Status: Hx Family Cardiac Disorders: Yes (CAD) Brother Family Member Ethnicity: Non- Living Status: Hx Family Cardiac Disorders: Yes (HD, Heart murmur) Medications and Allergies Atorvastatin [Lipitor] 40 mg PO HS 05/21/15 [History] Carvedilol 3.125 mg PO DAILY 05/21/15 [History] Cholecalciferol (Vitamin D3) [Vitamin D3] 1,000 unit PO DAILY 05/21/15 [History] metFORMIN [Glucophage] 500 mg PO BIDWM 05/21/15 [History] Nitroglycerin [Nitrostat] 0.4 mg SL AD PRN 11/07/15 [History] Aspirin [Lo-Dose Aspirin EC] 81 mg PO DAILY 09/07/18 [History] Cetirizine HCl 10 mg PO DAILY 09/07/18 [History] Vitamin E Acetate [Vitamin E] 400 unit PO DAILY 09/07/18 [History] Allergy/AdvReac Type Severity Reaction Status Date / Time Sulfa (Sulfonamide Allergy Hives Verified 09/07/18 15:32 Antibiotics) oxycodone [Oxycodone] AdvReac Dizziness Verified 09/07/18 15:32 All Systems Review: The remainder of the systems were reviewed and are negative - Cardiovascular Cardiovascular: as per HPI, chest pain at rest, dyspnea on exertion, rapid heart rate Physical Examination Vital Signs, Last 4 Hours Temp Pulse Resp BP Pulse Ox 09/21/18 11:43 97.9 F 112 18 101/67 94 09/21/18 09:54 93 General: Conversant, No Apparent Distress HEENT: Atraumatic, Normocephaly, Mucus Membranes Moist Neck: No JVD, Normal carotid pulses Cardiac: Normal S1 and S2, No Murmur, Other (Irregularly irregular) Lungs: Other (Lung sounds diminished throughout. ) Neuro: Alert and responsive, No focal deficits noted Abdomen: Soft, Non-Tender Skin: No rashes noted on visualized skin Musculoskeletal: No Chest Wall Tenderness Extremities: No Clubbing, No Cyanosis, No Edema, Normal Pulses Results 09/21/18 00:21 09/21/18 00:21 Lab Results Active Medications Acetaminophen (Tylenol) 650 mg PO Q6HR PRN PRN Reason: Mild Pain/Fever Stop: 03/19/19 17:29 Amiodarone HCl (Cordarone) 400 mg PO BID SANDRA Stop: 03/23/19 21:01 Amiodarone HCl (Cordarone) 200 mg PO ONCE ONE Stop: 09/21/18 13:46 Aspirin (Aspirin Ec) 81 mg PO DAILY SANDRA Stop: 03/20/19 09:01 Last Admin: 09/21/18 09:44 Dose: 81 mg Documented by: Atorvastatin Calcium (Lipitor) 40 mg PO HS SANDRA Stop: 03/19/19 21:01 Last Admin: 09/20/18 20:37 Dose: 40 mg Documented by: Benzonatate (Tessalon) 100 mg PO TID PRN PRN Reason: Cough Stop: 03/20/19 22:17 Last Admin: 09/19/18 20:49 Dose: 100 mg Documented by: Dextrose/Water (Dextrose 50% (Syg)) 25 ml IVP AD PRN PRN Reason: Hypoglycemia Stop: 03/19/19 17:33 Docusate Sodium (Colace) 100 mg PO DAILY [facility]; Protocol Stop: 03/22/19 18:16 Last Admin: 09/21/18 09:43 Dose: 100 mg Documented by: Furosemide (Lasix) 40 mg IVP BIDDIURETIC SANDRA Stop: 03/21/19 17:01 Last Admin: 09/21/18 09:44 Dose: 40 mg Documented by: Glucagon (Glucagen) 1 mg IM ONCE PRN PRN Reason: Hypoglycemia Stop: 03/19/19 17:33 Glucose (Gluctose) 15 gm PO ONCE PRN PRN Reason: Hypoglycemia Stop: 03/19/19 17:33 Glucose (Gluctose) 30 gm PO ONCE PRN PRN Reason: Hypoglycemia Stop: 03/19/19 17:33 Heparin Sodium (Porcine) (Heparin) 5,900 unit 70 unit/kg (5900 unit) IVP Q6HR PRN PRN Reason: SEE COMMENTS Stop: 03/19/19 17:33 Heparin Sodium (Porcine) (Heparin) 3,000 unit 35 unit/kg (3000 unit) IVP Q6H PRN PRN Reason: SEE COMMENTS Stop: 03/19/19 17:33 Last Admin: 09/20/18 10:45 Dose: 3,000 unit Documented by: Dextrose (Dextrose 5%) 1,000 mls @ 100 mls/hr IVC .Q10H PRN PRN Reason: HYPOGLYCEMIA Stop: 03/19/19 17:33 Heparin Sodium/Dextrose (Heparin 25,000 Unit/250 Ml D5w) 25,000 unit in 250 mls @ 11.812 mls/hr IVC .[id number] SANDRA; Protocol Stop: 03/19/19 17:46 Last Admin: 09/21/18 06:45 Dose: 15.99 unit/kg/hr, 13.5 mls/hr Documented by: Insulin Human Lispro (Humalog) 0 units SQ TIDAC [facility]; Protocol Stop: 03/20/19 07:31 Last Admin: 09/21/18 12:49 Dose: Not Given Documented by: Insulin Human Lispro (Humalog) 0 units SQ HS [facility]; Protocol Stop: 03/19/19 21:01 Last Admin: 09/20/18 20:39 Dose: Not Given Documented by: Levalbuterol HCl (Xopenex) 0.63 mg IH [id number] PRN PRN Reason: Shortness Of Breath Stop: 03/20/19 04:01 Last Admin: 09/18/18 22:16 Dose: 0.63 mg Documented by: Melatonin (Melatonin) 3 mg PO HS PRN PRN Reason: Insomnia Stop: 03/19/19 23:01 Last Admin: 09/17/18 23:21 Dose: 3 mg Documented by: Naloxone HCl (Narcan) 0.4 mg IVP Q2MPRN PRN PRN Reason: SEE COMMENTS Stop: 03/19/19 17:29 Nitroglycerin (Nitroglycerin) 0.4 mg SL Q5MPRN PRN PRN Reason: Chest Pain Stop: 03/19/19 17:32 Ondansetron HCl (Zofran) 4 mg IVP Q6HR PRN; Protocol PRN Reason: Nausea Stop: 03/20/19 15:01 Last Admin: 09/18/18 15:17 Dose: 4 mg Documented by: Laboratory Tests 09/17/18 09/21/18 09/21/18 12:30 00:21 00:21 WBC 12.4 H Hgb 14.4 Potassium 3.8 Creatinine 0.94 Magnesium TSH 2.095 09/21/18 00:21 WBC Hgb Potassium Creatinine Magnesium 2.3 TSH - Imaging and Cardiology Chest Xray: report reviewed Echo: report reviewed - EKG Interpretation EKG results cardiology: personally reviewed (ECG with a.flutter RVR, HR 160.), other (Telemetry reviewed with average HR previous 12 hours noted to be 105, a.fib. PVCs, couplets noted.) Consult Discharge Plan - Plan Referrals: Per Fisher MD [Primary Care Provider] - 09/26/18 10:15 am <Gennaro Vilchis - Last Filed: 09/21/18 15:06> Date of Encounter: 09/21/18 - Attending Attestation I have personally performed a face to face evaluation on this patient. I have reviewed and agree with the care plan. 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 He recurred post cardioversion. Would reload amio and try to cardiovert again. Assessment and Plan Discussion w patient/family: The assessment and plan as outlined above was discussed with the patient and/or family members who expressed understanding and agreement. All questions were answered. Thank you for involving us in the care of your patient. Please call with any questions. History of Present Illness History of present illness: Mr. Aguilar is a 83 year old male All Systems Review: The remainder of the systems were reviewed and are negative Physical Examination Vital Signs, Last 4 Hours Temp Pulse Resp BP Pulse Ox 09/21/18 11:43 97.9 F 112 18 101/67 94 Results 09/21/18 00:21 09/21/18 00:21 Lab Results 09/21/18 09/21/18 09/21/18 00:21 00:21 00:21 WBC 12.4 H Hgb 14.4 Hct 43.3 Plt Count 310 Sodium 136 Potassium 3.8 Chloride 100 Carbon Dioxide 30 H BUN 18 Creatinine 0.94 Glucose 129 H Calcium 9.0 Magnesium 2.3
[2018-09-22 00:49] LABS: Basophils # 0.1 K/mcL (0.0-0.2); Basophils % 0.4 %; Eosinophils # 0.2 K/mcL (0.0-0.6); Eosinophils % 1.3 %; Hematocrit 45.6 % (37.5-50.1); Hemoglobin 15.3 g/dL (12.9-16.9); Immature Granulocytes % 0.6 % (0-4); Lymphocytes # 2.7 K/mcL (0.6-4.6); Lymphocytes % 22.3 %; Mean Corpuscular HGB Conc 33.6 g/dL (31.6-35.5); Mean Corpuscular Hemoglobin 31.5 pg (28.0-33.3); Monocytes # 0.9 K/mcL (0.0-1.3); Monocytes % 7.4 %; Neutrophils # 8.1 K/mcL (1.6-8.9); Platelet Count 343 K/mcL (140-400); Red Blood Count 4.85 M/mcL (4.19-5.50); Red Cell Distribution Width 13.2 % (11.5-14.5)
[2018-09-22 01:25] LABS: BUN/Creatinine Ratio 17 (6-26); Blood Urea Nitrogen 18 mg/dL (8-23); Calcium 9.5 mg/dL (8.6-10.3); Carbon Dioxide 29 mEq/L (23-29); Chloride 100 mEq/L (98-107); Glucose 130 mg/dL (70-105); Osmolality,Calculated 292 (280-300); Potassium 3.8 mEq/L (3.5-5.1); Sodium 139 mEq/L (136-145); eGFR For Non-African Americans > 60 (> 60)
[2018-09-22] MEDS: Heparin 25,000 UNIT/250 ML D5W 25,000 UNIT/250 ML IV.SOLN IVC SCH (03:11)
--- NOTE | 2018-09-22 08:14 | Event Note ---
Date of Encounter: 09/22/18 Time of Encounter: 08:15 - Cardiology Event Note Laboratory Tests 09/22/18 09/22/18 00:30 00:30 Hgb 15.3 Hct 45.6 Creatinine 1.03 Est GFR (Non-Af Amer) > 60 Telemetry shows A. fib/flutter in the 100s to 120 this morning; average heart rate passed 12 hours 106. Plan for DC cardioversion today per EP recommendations (reviewed with Dr. Cid, patient had CARYN earlier this week and appears has been on continuous hep. gtt during stay since CARYN/DCCV-- no repeat CARYN warranted per Dr. Cid. On Toprol-XL 25 mg by mouth twice a day and amiodarone 400 mg by mouth twice a day. Received dig load during hospital stay. Also on aspirin and statin. Currently on heparin drip with plans to initiate Eliquis prior to discharge. On IV Lasix 40mg BID net I&O -3955ml. Discussed with primary service.
[2018-09-22] MEDS: Aspirin Enteric Coated 81 MG Tablet PO SCH (08:15)
[2018-09-22] MEDS: *HR* Amiodarone 200 MG TABLET PO SCH ×2 (08:15→21:31)
[2018-09-22] MEDS: Docusate Oral Soln 100 MG/10 ML UDC PO SCH (08:16)
[2018-09-22] MEDS: Furosemide 40 MG/4 ML VIAL IVP SCH (08:16)
[2018-09-22] MEDS: Insulin LISPRO 300 UNITS/3 ML VIAL SQ SCH ×4 (08:22→21:31)
[2018-09-22] MEDS ORDERED: *HR* FentaNYL (PF) 100 MCG/2 ML VIAL IVP PRN (10:13)
[2018-09-22] MEDS ORDERED: *HR* Midazolam HCl 5 MG/5 ML VIAL IVP PRN (10:14)
[2018-09-22] MEDS ORDERED: 0.9 % Sodium Chloride 500 ML IVC ONE (10:14)
[2018-09-22] MEDS: Apixaban 5 MG TABLET PO SCH ×2 (13:35→21:31)
[2018-09-22] MEDS: Furosemide 40 MG TABLET PO SCH (16:26)
--- NOTE | 2018-09-22 16:40 | Internal Med Progress Note ---
<Nela Rhoades - Last Filed: 09/22/18 16:50> Hospitalist Progress Note - Encounter Date of Encounter: 09/22/18 Time of Encounter: 10:00 - Subjective Interval History: Patient seen and examined at bedside today. He states that he slept well, he did not need to use CPAP overnight, just his nasal cannula. He continues to cervantes ve a mild, intermittent, nonproductive cough. He continues to have oxygen requirement. He denies nausea, vomiting, fever, chills, chest pain, pleuritic pain, abdominal pain, diarrhea, constipation, melena, dysuria, hematuria, calf pain. Patient to have cardioversion later today for his atrial fibrillation. - Exam Vitals: Temp Pulse Resp BP Pulse Ox 97.8 F 67 18 121/76 97 09/22/18 11:40 09/22/18 11:58 09/22/18 11:40 09/22/18 11:40 09/22/18 11:40 Exam: Gen.: Vitals noted. No acute distress. AAOx3, resting comfortably in bed, nasal cannula in place HEENT: PERRL/EOMI, oropharynx clear, Normocephalic, atraumatic, mucous membranes moist Cardiac: Irregularly irregular rhythm, tachycardic, no murmur, +S1/S2, No BLE edema Pulmonary: Clear to auscultation bilaterally, no wheezes, Rales or rhonchi, equ al chest expansion, unlabored breathing, nasal cannula in place Abdomen: soft, nontender, BS noted, no guarding, no palpable HSM MSK: ROM intact, no joint swelling noted, gait no assessed while in bed. Extremities: No calf tenderness, no edema Neuro: A&Ox3, moves all extremities, no focal deficits Psych: Appropriate mood and behavior, pleasant - Assessment and Plan (1) Atrial flutter Current Visit: Yes Status: Acute Assessment and Plan: Presents with atrial flutter with RVR History of atrial fibrillation ChadVasc score of 5 Chest x-ray 09/17/18 showed mild pulmonary vascular congestion Chest CTA-no evidence of pulmonary embolus, small bilateral pleural effusions Chest x-ray 09/18/18 showed acute pulmonary edema with small pleural effusions Status post cardioversion 09/18/18 which was successful and he converted to normal sinus rhythm. He then went back into atrial fibrillation. Update Status post cardioversion 09/22/18, patient converted to normal sinus rhythm. Heparin drip has been discontinued Eliquis 5 mg twice a day Amiodarone 400 mg twice a day for 1 week then decrease to 200 mg daily Toprol-XL 25 mg twice a day Lasix 40 mg twice a day by mouth overnight Wean supplemental oxygen as able Incentive spirometry Continue to evaluate fluid status in the a.m. once transitioned over to by mouth Lasix (2) Acute systolic CHF (congestive heart failure) Current Visit: Yes Status: Acute Assessment and Plan: CARYN cardioversion-LVEF 20%, severely globally decreased LV systolic function, moderately reduced right ventricular systolic function. echo 09/07/18 LVEF 55%, asymmetric basal septal hypertrophy without LVOT obstruction, mild left ventricular diastolic dysfunction, normal right ventricular structure and function, mild aortic regurgitation, no pulmonary hypertension. IV Lasix converted to by mouth Lasix Continue strict TESSIE Currently -4424 ml Assess fluid status tomorrow to determine Lasix dose for discharge (3) Cardiomyopathy Current Visit: Yes Status: Acute Assessment and Plan: Patient to follow-up with cardiology outpatient for further workup and evaluation (4) CAD (coronary artery disease) Current Visit: Yes Status: Chronic Assessment and Plan: History of coronary artery disease Status post stenting 2 Pharmacological stress test 10/17- negative for ischemia Continue aspirin, metoprolol, atorvastatin (5) Diabetes mellitus Current Visit: Yes Status: Chronic Assessment and Plan: Continue low-dose sliding scale (6) HLD (hyperlipidemia) Current Visit: Yes Status: Chronic Assessment and Plan: Atorvastatin (7) HTN (hypertension) Current Visit: Yes Status: Chronic Assessment and Plan: Continue metoprolol (8) LILLI on CPAP Current Visit: Yes Status: Chronic Assessment and Plan: CPAP at night (9) SIRS (systemic inflammatory response syndrome) Current Visit: Yes Status: Acute Assessment and Plan: SIRS criteria on admission-leukocytosis 16.6, tachycardia, tachypnea Recent UTI as well as pneumonia-adequately treated Suspect reactive, secondary to atrial flutter/ afib as opposed to infection. No source of infection identified Currently afebrile, leukocytosis 12.4, tachycardic intermittently urine culture shows no growth Blood cultures no growth to date Currently no need for antibiotics or fluid resuscitation. DVT Prophylaxis: Eliquis - Time Spent with Patient Total time spent is greater than 50% in coordination of care (as documented) at patient's floor/unit and/or counseling patient: Internal Medicine: Result - Labs CBC & Chem 7: 09/22/18 00:30 09/22/18 00:30 Labs: Short CBC 09/22/18 Range/Units 00:30 WBC 11.9 H (4.3-11.1) K/mcL Hgb 15.3 (12.9-16.9) g/dL Hct 45.6 (37.5-50.1) % Plt Count 343 (140-400) K/mcL Neutrophils # 8.1 (1.6-8.9) K/mcL BMP 09/22/18 00:30 Sodium 139 Potassium 3.8 Chloride 100 Carbon Dioxide 29 BUN 18 Creatinine 1.03 Glucose 130 H Calcium 9.5 - ABG Interpretation ABG results: PT/INR, D-dimer PT 15.4 Seconds (9.4-12.1) H 09/18/18 02:58 Consult Discharge Plan - Plan Referrals: Per Fisher MD [Primary Care Provider] - 09/26/18 10:15 am <Horace Carey - Last Filed: 09/22/18 17:17> Hospitalist Progress Note - Encounter Date of Encounter: 09/22/18 - Exam Vitals: Temp Pulse Resp BP Pulse Ox 97.8 F 67 18 121/76 97 09/22/18 11:40 09/22/18 11:58 09/22/18 11:40 09/22/18 11:40 09/22/18 11:40 - Assessment and Plan (1) CAD (coronary artery disease) Current Visit: Yes Status: Chronic (2) LILLI on CPAP Current Visit: Yes Status: Chronic (3) Diabetes mellitus Current Visit: Yes Status: Chronic (4) History of prostate cancer Current Visit: Yes Status: Chronic (5) HLD (hyperlipidemia) Current Visit: Yes Status: Chronic (6) HTN (hypertension) Current Visit: Yes Status: Chronic (7) DVT prophylaxis Current Visit: Yes Status: Acute (8) Atrial flutter Current Visit: Yes Status: Acute (9) SIRS (systemic inflammatory response syndrome) Current Visit: Yes Status: Acute (10) Acute systolic CHF (congestive heart failure) Current Visit: Yes Status: Acute (11) Cardiomyopathy Current Visit: Yes Status: Acute - Time Spent with Patient Total time spent is greater than 50% in coordination of care (as documented) at patient's floor/unit and/or counseling patient: Internal Medicine: Result - Labs CBC & Chem 7: 09/22/18 00:30 09/22/18 00:30 Labs: Short CBC 09/22/18 Range/Units 00:30 WBC 11.9 H (4.3-11.1) K/mcL Hgb 15.3 (12.9-16.9) g/dL Hct 45.6 (37.5-50.1) % Plt Count 343 (140-400) K/mcL Neutrophils # 8.1 (1.6-8.9) K/mcL BMP 09/22/18 00:30 Sodium 139 Potassium 3.8 Chloride 100 Carbon Dioxide 29 BUN 18 Creatinine 1.03 Glucose 130 H Calcium 9.5 - ABG Interpretation ABG results: PT/INR, D-dimer PT 15.4 Seconds (9.4-12.1) H 09/18/18 02:58 - Attending Attestation I examined this patient and my medical decision-making was reviewed with the [facility] Phys[facility]. I agree with the documented findings, disposition and treatment plan as described except to the extent set forth below. Additional diagnosis: - Acute respiratory failure with hypoxia: Secondary to CHF. Cardiology signing off, but patient will need additional diuresis and weaning off O2 during this admission. _ <Nela Rhoades - Last Filed: 09/22/18 16:50> (1) Atrial flutter Qualifiers: Atrial flutter type: unspecified Qualified Code(s): I48.92 - Unspecified atrial flutter (3) Cardiomyopathy Qualifiers: Cardiomyopathy type: unspecified Qualified Code(s): I42.9 - Cardiomyopathy, unspecified (4) CAD (coronary artery disease) Qualifiers: Coronary Disease-Associated Artery/Lesion type: [place] artery [place] vs. transplanted heart: [place] heart Associated angina: without angina Qualified Code(s): I25.10 - Atherosclerotic heart disease of [place] coronary artery without angina pectoris (5) Diabetes mellitus Qualifiers: Diabetes mellitus type: type 2 Diabetes mellitus intermediate insulin use: without intermediate use Diabetes mellitus complication status: with unspecified complications Qualified Code(s): E11.8 - Type 2 diabetes mellitus with unspecified complications (6) HLD (hyperlipidemia) Qualifiers: Hyperlipidemia type: pure hypercholesterolemia Qualified Code(s): E78.00 - Pure hypercholesterolemia, unspecified; E78.0 - Pure hypercholesterolemia (7) HTN (hypertension) Qualifiers: Hypertension type: essential hypertension Qualified Code(s): I10 - Essential (primary) hypertension <Horace Carey - Last Filed: 09/22/18 17:17> (1) CAD (coronary artery disease) Qualifiers: Coronary Disease-Associated Artery/Lesion type: [place] artery [place] vs. 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 truck driver use Diabetes mellitus complication status: with unspecified complications Qualified Code(s): E11.8 - Type 2 diabetes mellitus with unspecified complications (5) HLD (hyperlipidemia) Qualifiers: Hyperlipidemia type: pure hypercholesterolemia Qualified Code(s): E78.00 - Pure hypercholesterolemia, unspecified; E78.0 - Pure hypercholesterolemia (6) HTN (hypertension) Qualifiers: Hypertension type: essential hypertension Qualified Code(s): I10 - Essential (primary) hypertension (8) Atrial flutter Qualifiers: Atrial flutter type: unspecified Qualified Code(s): I48.92 - Unspecified atrial flutter (11) Cardiomyopathy Qualifiers: Cardiomyopathy type: unspecified Qualified Code(s): I42.9 - Cardiomyopathy, unspecified
--- NOTE | 2018-09-22 17:45 | Electrocardiograph Report ---
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[place] : 1935 Requested By: Jordan Cid Order Number: [id number] Reading MD: Sarahi Kilpatrick Measurements Intervals [place] Rate: 141 P: [place]: 0 QRS: -36 QRSD: 109 T: 197 QT: 349 QTc: 431 Interpretive Statements ATRIAL FLUTTER/TACHYCARDIA WITH RAPID VENTRICULAR RESPONSE POSSIBLE RIGHT VENTRICULAR CONDUCTION DELAY [RSR (QR) IN V1/V2] LEFT VENTRICULAR HYPERTROPHY AND ST-T CHANGE [VOLTAGE CRITERIA PLUS ST/T ABNORMALITY] POSSIBLE INFERIOR MYOCARDIAL INFARCTION [40+ ms Q WAVE AND/OR ST/T ABNORMALITY IN II/aVF], OF INDETERMINATE AGE Electronically Signed On 09-22-2018 17:44:12 EDT by Sarahi Kilpatrick
--- NOTE | 2018-09-22 17:47 | Electrocardiograph Report ---
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
[2018-09-23 01:23] LABS: Basophils % 0.3 %; Eosinophils # 0.2 K/mcL (0.0-0.6); Eosinophils % 1.8 %; Hematocrit 41.7 % (37.5-50.1); Hemoglobin 14.1 g/dL (12.9-16.9); Immature Granulocytes % 0.6 % (0-4); Immature Platelets 1.3 % (1.1-6.1); Lymphocytes # 1.8 K/mcL (0.6-4.6); Lymphocytes % 16.7 %; Mean Corpuscular HGB Conc 33.8 g/dL (31.6-35.5); Mean Corpuscular Hemoglobin 31.5 pg (28.0-33.3); Mean Corpuscular Volume 93.3 fL (83.0-100.0); Mean Platelet Volume 8.8 fL (9.4-12.4); Monocytes # 0.7 K/mcL (0.0-1.3); Monocytes % 6.9 %; Neutrophils # 7.8 K/mcL (1.6-8.9); Platelet Count 354 K/mcL (140-400); Red Blood Count 4.47 M/mcL (4.19-5.50); Red Cell Distribution Width 13.2 % (11.5-14.5); Segmented Neutrophils % 73.7 %
[2018-09-23 01:37] LABS: BUN/Creatinine Ratio 20 (6-26); Blood Urea Nitrogen 20 mg/dL (8-23); Calcium 9.1 mg/dL (8.6-10.3); Carbon Dioxide 29 mEq/L (23-29); Chloride 102 mEq/L (98-107); Glucose 98 mg/dL (70-105); Osmolality,Calculated 293 (280-300); Potassium 3.5 mEq/L (3.5-5.1); Sodium 140 mEq/L (136-145); eGFR For Non-African Americans > 60 (> 60)
[2018-09-23] MEDS: Apixaban 5 MG TABLET PO SCH (07:49)
[2018-09-23] MEDS: Insulin LISPRO 300 UNITS/3 ML VIAL SQ SCH ×2 (07:49→11:51)
[2018-09-23] MEDS: Aspirin Enteric Coated 81 MG Tablet PO SCH (07:49)
[2018-09-23] MEDS: *HR* Amiodarone 200 MG TABLET PO SCH (07:49)
[2018-09-23] MEDS: Furosemide 40 MG TABLET PO SCH (07:49)
[2018-09-23 11:42] VITALS: BP 126/82
--- NOTE | 2018-09-23 15:13 | Discharge Summary ---
<Bang Nair - Last Filed: 09/23/18 15:49> - NOTES TO OUTPATIENT PROVIDER Notes to Outpatient Provider: Follow-up with cardiology in the outpatient setting. Orders not resulted at time of discharge: Pending orders 09/24/18 04:00 BMP [Basic Metabolic Panel] AM 0400 CBC [Complete Blood Count] [HEME] AM 0400 Date of Encounter: 09/23/18 Time of Encounter: 10:15 Hospital course: Mr. Aguilar is a 83 year old male with a PMH of atrial fibrillation, CAD, HTN, DM, prostate cancer status post prostatectomy, and hyperlipidemia who presented to [facility] ED on 09/17/18 with chief complaint of elevated heart rate and shortness of breath. He reported that his symptoms had been going on for several days, but on the morning of presentation, had been constant. Denied having any previous episodes. Reported a known diagnosis of atrial fibrillation, but denied ever having an admission for rapid ventricular response. 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 Reported that his shortness of breath was worse with exertion. Patient was admitted to [facility] on 09/06 through 09/09 and was treated for pneumonia and ESBL Escherichia coli UTI. He completed a course of antibiotics. On presentation, he denied fever, chills, nausea, vomiting, or chest pain. Upon arrival to the emergency department, vital signs were as follows: Temperature 98.2, pulse 160, respiratory rate 18, blood pressure 107/58, and O2 saturation 96%. Laboratory analysis demonstrated an elevated white count of 12 .6 and an elevated troponin 0.04. EKG demonstrated SVT with a HR in the 150s- 160s. Also noted was left axis deviation, QT prolongation at 474, early R-wave progression with possible LVH, ST depression in V4, V5. He was initially given a dose of adenosine, which slowed his heart rate down enough to show atrial flutter on telemetry strip. He was then started on esmolol drip, but his blood pressure did not tolerate it. Cardiology was consulted; recommended amiodarone drip. On arrival, patient did meet SIRS criteria with a leukocytosis of 16.6, tachycardia, and tachypnea. No infection source is identified or suspected during his hospitalization. During his stay in the hospital, his white blood cell count decreased, and on date of discharge, is 10.5. Suspect that this was reactive secondary to atrial flutter. Blood and urine cultures show no growth to date. On 09/18, patient was still short of breath, a repeat chest x-ray was ordered. It demonstrated acute pulmonary edema with small pleural effusions. As a result, he underwent cardioversion, after which he converted back to normal sinus rhythm. Cardioversion demonstrated the following: LVEF 20%, severely globally decreased LV systolic function, moderately reduced right ventricular systolic function. He was started on Lasix 40 mg by mouth twice daily. After this, he went into atrial fibrillation again. He was then cardioverted again on 09/22/18, during which he converted into normal sinus rhythm. On date of discharge, patient states he is feeling well. His vital signs are within normal limits. Per the recommendations of cardiology, patient will be on amiodarone 400 mg twice daily for the first 7 days, and then will switch to amiodarone 200 mg daily. He will also be sent with a prescription for a walker and Eliquis. He is no longer requiring supplemental oxygen. Will also be sent home on Lasix 40 mg PO daily. - Time Spent with Patient Total time spent providing and/or coordinating discharge services: - Discharge Medications Prescriptions: New Amiodarone [Cordarone] 400 mg PO BID #10 tablet Apixaban [Eliquis] 5 mg PO BID #60 tablet Furosemide [Lasix] 40 mg PO DAILY #30 tablet Walker [WALKER] 1 each .ROUTE AD #1 each Amiodarone [Cordarone] 200 mg PO DAILY #30 tablet Continued metFORMIN [Glucophage] 500 mg PO BIDWM Cholecalciferol (Vitamin D3) [Vitamin D3] 1,000 unit PO DAILY Carvedilol 3.125 mg PO DAILY Atorvastatin [Lipitor] 40 mg PO HS Nitroglycerin [Nitrostat] 0.4 mg SL AD PRN PRN Reason: Chest Pain Aspirin [Lo-Dose Aspirin EC] 81 mg PO DAILY Cetirizine HCl 10 mg PO DAILY Vitamin E Acetate [Vitamin E] 400 unit PO DAILY Home Medications: Atorvastatin [Lipitor] 40 mg PO HS 05/21/15 [History] Carvedilol 3.125 mg PO DAILY 05/21/15 [History] Cholecalciferol (Vitamin D3) [Vitamin D3] 1,000 unit PO DAILY 05/21/15 [History] metFORMIN [Glucophage] 500 mg PO BIDWM 05/21/15 [History] Nitroglycerin [Nitrostat] 0.4 mg SL AD PRN 11/07/15 [History] Aspirin [Lo-Dose Aspirin EC] 81 mg PO DAILY 09/07/18 [History] Cetirizine HCl 10 mg PO DAILY 09/07/18 [History] Vitamin E Acetate [Vitamin E] 400 unit PO DAILY 09/07/18 [History] Amiodarone [Cordarone] 200 mg PO DAILY #30 tablet 09/23/18 [Rx] Amiodarone [Cordarone] 400 mg PO BID #10 tablet 09/23/18 [Rx] Apixaban [Eliquis] 5 mg PO BID #60 tablet 09/23/18 [Rx] Furosemide [Lasix] 40 mg PO DAILY #30 tablet 09/23/18 [Rx] Walker [WALKER] 1 each .ROUTE AD #1 each 09/23/18 [Rx] Allergies/Adverse Reactions: Allergy/AdvReac Type Severity Reaction Status Date / Time Sulfa (Sulfonamide Allergy Hives Verified 09/07/18 15:32 Antibiotics) oxycodone [Oxycodone] AdvReac Dizziness Verified 09/07/18 15:32 Date of admission: 09/17/18 17:21 Primary care physician: Per Fisher MD Consults: 09/17/18 16:12 Consult to Cardiology [CONS] Stat Comment: Consulting Provider: Cardiology [place] Reason for Consult: refractory afib Call Completed: Yes 09/19/18 13:10 Consult to Urology [CONS] Routine Consulting Provider: Urology [place] Reason for Consult: Need mckenna catheter placed for strict I&O, hx prostatectomy as well as bladder clamp Call Completed: Yes 09/21/18 13:54 Consult to Electrophysiology (EP) [CONS] Routine Consulting Provider: Electrophysiology [place] Reason for Consult: afib RVR Call Completed: Yes 09/21/18 14:46 Consult to Occupational Therapy [CONS] Routine Comment: Evaluate, develop and implement POC Reason for Consult: Evaluate, develop and implement POC Does patient have active BEDREST order?: No Is patient medically & hemodynamically stable?: Yes Consult to Physical Therapy [CONS] Routine Comment: Evaluate, develop and implement POC Reason for Consult: Disposition planning. Therapy - weakness in bed. Does patient have active BEDREST order?: No Is patient medically & hemodynamically stable?: Yes Discharging clinician: Bang Nair Anticipated date of discharge: 09/23/18 - Constitutional Vitals: Temp Pulse Resp BP Pulse Ox 98.2 F 69 18 126/82 98 09/23/18 11:36 09/23/18 12:10 09/23/18 11:36 09/23/18 11:36 09/23/18 13:26 Exam: General: A&O X3, conversant, no acute distress Head: atraumatic, normocephalic Eye: PERRL, EOMI, conjuntiva pink, sclera anicteric Neck: Supple, trachea midline; No lymphadenopathy Respiratory: Mild bibasilar crackles. No wheezes or rhonchi Cardiovascular: Irregularly irregular, +S1, +S2; no murmurs, rubs, gallops Abdomen: Soft, nontender Extremities: warm, radial pulses palpable and symmetrical Psychiatric: Normal affect, normal mood Skin: Dry, intact - Patient Status Disposition: Home, Self-Care Condition: Fair - Discharge Instructions Instructions: Furosemide (By mouth), Amiodarone (By mouth), Apixaban (By mouth), Heart Failure (DC), Atrial Flutter (DC), Pacemaker (DC), Diabetes Mellitus Type 2 in Adults (DC), Chronic Hypertension (DC) Follow Up With: Per Fisher MD [Primary Care Provider] - 09/26/18 10:15 am Lalit Cedeno CNP [Advanced Practice Nurse] - (web request sent on 09/23/18, cardiology will call pt. to schedule appt.) - Diet and Activity Activity: increase activity as tolerated Diet: low salt diet <Horace Carey - Last Filed: 09/23/18 16:38> Orders not resulted at time of discharge: Pending orders 09/24/18 04:00 BMP [Basic Metabolic Panel] AM 0400 CBC [Complete Blood Count] [HEME] AM 0400 Date of Encounter: 09/23/18 - Discharge Diagnosis (1) Atrial flutter Priority: Primary Status: Acute Qualifiers: Atrial flutter type: unspecified Qualified Code(s): I48.92 - Unspecified atrial flutter (2) CAD (coronary artery disease) Priority: Secondary Status: Chronic Qualifiers: Coronary Disease-Associated Artery/Lesion type: [place] artery [place] vs. transplanted heart: [place] heart Associated angina: without angina Qualified Code(s): I25.10 - Atherosclerotic heart disease of [place] coronary artery without angina pectoris (3) LILLI on CPAP Priority: Secondary Status: Chronic (4) Diabetes mellitus Priority: Secondary Status: Chronic Qualifiers: Diabetes mellitus type: type 2 Diabetes mellitus correction insulin use: without correction use Diabetes mellitus complication status: with unspecified complications Qualified Code(s): E11.8 - Type 2 diabetes mellitus with unspecified complications (5) History of prostate cancer Priority: Secondary Status: Chronic (6) HLD (hyperlipidemia) Priority: Secondary Status: Chronic Qualifiers: Hyperlipidemia type: pure hypercholesterolemia Qualified Code(s): E78.00 - Pure hypercholesterolemia, unspecified; E78.0 - Pure hypercholesterolemia (7) HTN (hypertension) Priority: Secondary Status: Chronic Qualifiers: Hypertension type: essential hypertension Qualified Code(s): I10 - Essential (primary) hypertension (8) DVT prophylaxis Priority: Secondary Status: Acute (9) SIRS (systemic inflammatory response syndrome) Priority: Secondary Status: Acute (10) Acute systolic CHF (congestive heart failure) Priority: Secondary Status: Acute (11) Cardiomyopathy Priority: Secondary Status: Acute Qualifiers: Cardiomyopathy type: unspecified Qualified Code(s): I42.9 - Cardiomyopathy, unspecified Hospital course: Mr. Aguilar is a 83 year old male - Time Spent with Patient Total time spent providing and/or coordinating discharge services: Date of admission: 09/17/18 17:21 Primary care physician: Per Fisher MD Consults: 09/17/18 16:12 Consult to Cardiology [CONS] Stat Comment: Consulting Provider: Cardiology [place] Reason for Consult: refractory afib Call Completed: Yes 09/19/18 13:10 Consult to Urology [CONS] Routine Consulting Provider: Urology [place] Reason for Consult: Need mckenna catheter placed for strict I&O, hx prostatectomy as well as bladder clamp Call Completed: Yes 09/21/18 13:54 Consult to Electrophysiology (EP) [CONS] Routine Consulting Provider: Electrophysiology [place] Reason for Consult: afib RVR Call Completed: Yes 09/21/18 14:46 Consult to Occupational Therapy [CONS] Routine Comment: Evaluate, develop and implement POC Reason for Consult: Evaluate, develop and implement POC Does patient have active BEDREST order?: No Is patient medically & hemodynamically stable?: Yes Consult to Physical Therapy [CONS] Routine Comment: Evaluate, develop and implement POC Reason for Consult: Disposition planning. Therapy - weakness in bed. Does patient have active BEDREST order?: No Is patient medically & hemodynamically stable?: Yes - Constitutional Vitals: Temp Pulse Resp BP Pulse Ox 98.2 F 69 18 126/82 98 09/23/18 11:36 09/23/18 12:10 09/23/18 11:36 09/23/18 11:36 09/23/18 13:26 - Attending Attestation I examined this patient and my medical decision-making was reviewed with the Resident Physician. I agree with the documented findings, disposition and treatment plan as described except to the extent set forth below. Will need follow-up BMP in 3 days. Sending on 40 mg PO daily Lasix. Re-assess if Lasix needed, or if dose needs adjusted after a few days.
== END 2018-09-23 17:00 | disposition home or self-care (01) | DRG 308 ==
LOC: EMEROOARM 12:10 → SUATTDRO 17:21 → 2NNU 17:21
PROVIDERS: ADMIT Internal Medicine Nephrology; ATTEND Student in an Organized Health Care Education/Training Program

== ENCOUNTER 2018-09-27 10:51 | Observation (INO) ==
[2018-09-27] MEDS ORDERED: Aspirin 81 MG TAB.CHEW PO ONE (10:53)
[2018-09-27 11:21] LABS: Basophils # 0.1 K/mcL (0.0-0.2); Basophils % 0.6 %; Eosinophils # 0.2 K/mcL (0.0-0.6); Eosinophils % 2.5 %; Hematocrit 41.3 % (37.5-50.1); Hemoglobin 13.8 g/dL (12.9-16.9); Immature Granulocytes % 0.6 % (0-4); Lymphocytes % 23.3 %; Mean Corpuscular HGB Conc 33.4 g/dL (31.6-35.5); Mean Corpuscular Hemoglobin 31.5 pg (28.0-33.3); Mean Corpuscular Volume 94.3 fL (83.0-100.0); Mean Platelet Volume 8.9 fL (9.4-12.4); Monocytes # 0.7 K/mcL (0.0-1.3); Monocytes % 8.5 %; Neutrophils # 5.6 K/mcL (1.6-8.9); Platelet Count 267 K/mcL (140-400); Red Blood Count 4.38 M/mcL (4.19-5.50); Red Cell Distribution Width 13.2 % (11.5-14.5); Segmented Neutrophils % 64.5 %
--- NOTE | 2018-09-27 11:23 | Emergency Department Note ---
Disposition Clinical Impression: Chest pain Qualifiers: Chest pain type: unspecified Qualified Code(s): R07.9 - Chest pain, unspecified Disposition: Admitted As Inpatient Condition: Good Forms: ED Satisfaction Letter Time of Disposition: 12:30 General Adult HPI - General Chief complaint: ED Chest Pain Stated complaint: chest pain Time Seen by Provider: 09/27/18 10:53 Source: patient Mode of arrival: ambulatory Limitations: no limitations Nursing Notes Reviewed: Yes Vital Signs Reviewed: Yes - History of Present Illness HPI Narrative: 83 year old male presents to the ED with complaints of chest pain and was most recently admitted to the hospital over the past month twice for cardiac related compltaling and has had a CARYN And consnult with echo for afibrvr and appears that he was cardioverted x 2. Patient states that he was recently diaschared from the hospitla and today he was having difficulty with taking a deep breath and and was sitting in his chair. Josenet states that he has a signigcat ACS hi story wtih two cardaic stents and develiped left sided chest pain and was schwdled for outpatinet stress test but was not otherwise able to get in enough time. Danilo denies diaphroesis and has sigficant risk factors for recurrent blockage and collapsing stents. Danilo states that he took one nitro and it helped iwth his symptoms. Pain Scale: 0 - Related Data Home Medications Medication Instructions Recorded Confirmed Atorvastatin [Lipitor] 40 mg PO HS 05/21/15 09/27/18 Carvedilol 3.125 mg PO DAILY 05/21/15 09/27/18 Cholecalciferol (Vitamin D3) 1,000 unit PO DAILY 05/21/15 09/27/18 [Vitamin D3] metFORMIN [Glucophage] 500 mg PO BIDWM 05/21/15 09/27/18 Nitroglycerin [Nitrostat] 0.4 mg SL AD PRN 11/07/15 09/27/18 Aspirin [Lo-Dose Aspirin EC] 81 mg PO DAILY 09/07/18 09/27/18 Cetirizine HCl 10 mg PO DAILY 09/07/18 09/27/18 Vitamin E Acetate [Vitamin E] 400 unit PO DAILY 09/07/18 09/27/18 Previous Rx's Medication Instructions Recorded Amiodarone [Cordarone] 200 mg PO DAILY #30 tablet 09/23/18 Amiodarone [Cordarone] 400 mg PO BID #10 tablet 09/23/18 Apixaban [Eliquis] 5 mg PO BID #60 tablet 09/23/18 Furosemide [Lasix] 40 mg PO DAILY #30 tablet 09/23/18 Walker [WALKER] 1 each .ROUTE AD #1 each 09/23/18 Allergies Allergy/AdvReac Type Severity Reaction Status Date / Time Sulfa (Sulfonamide Allergy Hives Verified 09/07/18 15:32 Antibiotics) oxycodone [Oxycodone] AdvReac Dizziness Verified 09/07/18 15:32 Constitutional: Denies: fever, chills, weakness, weight change Eyes: Denies: eye pain, eye discharge, vision change ENT ED: Denies: ear pain, throat pain, dental pain, hearing loss, epistaxis, congestion, dysphagia Cardiovascular: Reports: chest pain, dyspnea on exertion. Denies: palpitations, edema, syncope Respiratory: Denies: cough, dyspnea, wheezes, hemoptysis, stridor Gastrointestinal: Denies: abdominal pain, nausea, vomiting, diarrhea, constipation, hematemesis, melena, hematochezia Genitourinary: Denies: urgency, dysuria, frequency, hematuria Musculoskeletal: Denies: back pain, neck pain, arthralgia, myalgia Integumentary: Denies: rash, abrasion, lesions Neurological: Denies: headache, weakness, numbness, paresthesias, confusion, abnormal gait, vertigo Psychiatric: Denies: anxiety, depression, suicidal thoughts, homicidal thoughts, auditory hallucinations, visual hallucinations Endocrine: Denies: fatigue Hematological/Lymphatic: Denies: easy bleeding, easy bruising Allergic/Immunologic: Denies: facial swelling, urticaria Past Medical History - Past Medical History Medical history: Reports: arthritis, atrial fibrillation, cancer, cardiomyopathy, coronary artery disease, diabetes, hyperlipidemia, hypertension, other Surgical history: Reports: angioplasty/stent Psychiatric history: Reports: no psych history - Social History Smoking Status: Never smoker Smokeless Tobacco Status: No Alcohol use: Reports: occasionally Drug use: Reports: none Physical Exam - General Limitations: no limitations General appearance: alert - Head Head exam: atraumatic, normocephalic, normal inspection - Eye Eye exam: Present: normal appearance, PERRL, EOMI - Expanded Eye Exam Pupils: Left: reactive - ENT ENT exam: normal exam, normal oropharynx, mucous membranes moist - Expanded ENT Exam External ear exam: Present: normal external inspection Mouth exam: Present: normal external inspection Teeth exam: Present: normal inspection Throat exam: Present: normal inspection - Neck Neck exam: Present: normal inspection, full ROM, trachea midline - Chest Chest inspection: Present: normal inspection, symmetric chest wall rise - Respiratory Respiratory exam: Present: normal lung sounds bilaterally - Cardiovascular Cardiovascular exam: Present: normal rhythm, bradycardia, normal heart sounds - Abdominal Exam Abdominal exam: Present: soft, Non-Tender. Absent: tenderness, distention, guarding, rebound, rigidity - Extremities Exam Extremities exam: Present: normal inspection, full ROM. Absent: tenderness, pedal edema - Expanded Upper Extremity Exam Shoulder exam: Present: normal inspection, full ROM Arm exam: Present: normal inspection, full ROM Elbow exam: Present: normal inspection, full ROM Forearm/Wrist exam: Present: normal inspection, full ROM Hand exam: Present: normal inspection, full ROM Vascular exam: Normal: capillary refill, radial pulse - Expanded Lower Extremity Exam Hip/Pelvis exam: Present: normal inspection, full ROM Upper leg exam: Present: normal inspection, full ROM Knee exam: Present: normal inspection, full ROM Lower leg exam: Present: normal inspection, full ROM Ankle exam: Present: normal inspection, full ROM Foot/toe exam: Present: normal inspection, full ROM Neurovascular/Tendon exam: Absent: motor deficit, sensory deficit, tendon deficit - Back Exam Back exam: Present: normal inspection, full ROM. Absent: tenderness - Neurological Exam Neurological exam: Present: alert, oriented X3 - Expanded Neurological Exam Patient oriented to: Present: person, place, time Coma Scale Eye Opening: Spontaneous Coma Scale Motor Response: Obeys Commands Coma Scale Verbal Response: Oriented Coma Scale Total: 15 - Psychiatric Psychiatric exam: Present: normal affect, normal mood - Skin Skin exam: Present: warm, dry, intact, normal color Course Course Narrative: I will do a cardiac workup including ruling out HCAP and PE as he has most recent hospitla admissions. REgardless he has a moderate heart score and will require admision ot the hospital for CP r/o ACS. ASA and nitro given - Consultations Consultation #1: discusssed case with Dr. Layton and she accepts to the medicine service Time: 12:30 Vital Signs Temperature 98.4 F 09/27/18 10:57 Pulse Rate 52 09/27/18 10:57 Respiratory Rate 17 09/27/18 10:57 Blood Pressure 125/79 09/27/18 10:57 O2 Sat by Pulse Oximetry 96 09/27/18 10:57 Temperature 98.4 F 09/27/18 10:57 Pulse Rate 51 09/27/18 12:06 Respiratory Rate 09/27/18 12:06 Blood Pressure 129/68 09/27/18 12:06 O2 Sat by Pulse Oximetry 96 09/27/18 12:06 Oxygen Delivery Oxygen Delivery Room Air Medical Decision Making - Medical Records Medical records reviewed: Yes I reviewed the patient's medical records. - Lab Data Lab results reviewed: Yes I reviewed the patient's lab results. Result diagrams: 09/27/18 11:04 09/27/18 11:04 Lab Results 09/27/18 09/27/18 09/27/18 Range/Units 11:04 11:04 11:04 WBC 8.7 (4.3-11.1) K/mcL RBC 4.38 (4.19-5.50) M/mcL Hgb 13.8 (12.9-16.9) g/dL Hct 41.3 (37.5-50.1) % MCV 94.3 (83.0-100.0) fL MCH 31.5 (28.0-33.3) pg MCHC 33.4 (31.6-35.5) g/dL RDW 13.2 (11.5-14.5) % Plt Count 267 (140-400) K/mcL MPV 8.9 L (9.4-12.4) fL Immature Gran % 0.6 (0-4) % Seg Neutrophils % 64.5 % Lymphocytes % 23.3 % Monocytes % 8.5 % Eosinophils % 2.5 % Basophils % 0.6 % Neutrophils # 5.6 (1.6-8.9) K/mcL Lymphocytes # 2.0 (0.6-4.6) K/mcL Monocytes # 0.7 (0.0-1.3) K/mcL Eosinophils # 0.2 (0.0-0.6) K/mcL Basophils # 0.1 (0.0-0.2) K/mcL PT 19.7 H (9.4-12.1) Seconds INR 1.7 APTT 38.8 H (26.0-36.0) Seconds D-Dimer 336 (0-500) ng/mLFEU Sodium 137 (136-145) mEq/L Potassium 4.2 (3.5-5.1) mEq/L Chloride 102 (98-107) mEq/L Carbon Dioxide 28 (23-29) mEq/L BUN 12 (8-23) mg/dL Creatinine 1.06 (0.70-1.30) mg/dL Est GFR ( Amer) > 60 (> 60) Est GFR (Non-Af Amer) > 60 (> 60) BUN/Creatinine Ratio 11 (6-26) Glucose 126 H (70-105) mg/dL Calculated Osmolality 285 (280-300) Calcium 9.7 (8.6-10.3) mg/dL Troponin I < 0.03 (< 0.04) ng/mL - Radiology Data Radiology results reviewed: Yes I reviewed the patient's radiology results. - EKG Data EKG #1 EKG attestation: Yes I reviewed and interpreted this EKG. EKG results narrative: NSR with sinus alexus at a rate of 51. NO STMEI. normal intervals. no chage from previous 09/22/18. 1100
[2018-09-27 11:34] LABS: INR 1.7; Prothrombin Time 19.7 Seconds (9.4-12.1)
[2018-09-27 11:37] LABS: Activated Partial Thrombo Time 38.8 Seconds (26.0-36.0)
[2018-09-27 11:42] LABS: BUN/Creatinine Ratio 11 (6-26); Blood Urea Nitrogen 12 mg/dL (8-23); Calcium 9.7 mg/dL (8.6-10.3); Carbon Dioxide 28 mEq/L (23-29); Chloride 102 mEq/L (98-107); Glucose 126 mg/dL (70-105); Osmolality,Calculated 285 (280-300); Potassium 4.2 mEq/L (3.5-5.1); Sodium 137 mEq/L (136-145); Troponin I < 0.03 ng/mL (< 0.04); eGFR For Non-African Americans > 60 (> 60)
[2018-09-27] MEDS ORDERED: Naloxone 0.4 MG/ML INJ IVP PRN (14:02)
[2018-09-27] MEDS ORDERED: Ondansetron 4 MG/2 ML VIAL IVP PRN (14:02)
[2018-09-27] MEDS ORDERED: Acetaminophen 325 MG TABLET PO PRN (14:02)
[2018-09-27] MEDS ORDERED: Nitroglycerin 0.4 MG TAB.SUBL SL PRN (14:31)
--- NOTE | 2018-09-27 14:42 | Internal Med History&Physical ---
Date of Encounter: 09/27/18 Time of Encounter: 14:35 Internal Medicine - H&P: HPI Chief complaint: Chest pain Admitted From: Emergency Dept History of present illness: Mr. Aguilar is a 83 year old male with a PMH of paroxysmal atrial fibrillation on Eliquis for anti coag, recent cardioversion x 2, on Amiodarone now, Systolic CHF with LVEF @ 20 %, CAD, HTN, DM, prostate cancer status post prostatectomy, and hyperlipidemia who was admitted twice this month for SOB / Afib with RVR, now he came to ER with sudden onset of chest pain located sub sternal and left chest wall region. Patient stated his chest pain is more like achy type, non radiating and associated with shortness of breath and diaphoresis. His chest pain was relieved by aspirin and nitroglycerin sublingual tablets. Patient denied any active chest pain now. In the ER his EKG showed sinus bradycardia with no acute ST, T changes. His initial troponin l< 0.03. Past Med Surg Social Fam HX - Past Medical History Medical history: arthritis, atrial fibrillation, cancer, cardiomyopathy, coronary artery disease, diabetes, hyperlipidemia, hypertension, other Additional medical history: Prostate cancer Psychiatric history: no psych history - Past Surgical History Surgical History: angioplasty/stent Additional surgical history: 2008, 2013 heart cath with stent x 2. prostatectomy 1992 - Social History Smoking Status: Never smoker Smokeless Tobacco Status: No Alcohol use: occasionally Drug use: none - Family History Mother Family Member Ethnicity: Non- Living Status: Hx Family Cardiac Disorders: Yes (HTN, HLD, CAD) Hx Family Endocrine Disorder: Yes (DM) Father Family Member Ethnicity: Non- Living Status: Hx Family Cardiac Disorders: Yes (CAD) Brother Family Member Ethnicity: Non- Living Status: Hx Family Cardiac Disorders: Yes (HD, Heart murmur) Internal Medicine - H&P: Meds Atorvastatin [Lipitor] 40 mg PO HS 05/21/15 [History] Carvedilol 3.125 mg PO DAILY 05/21/15 [History] Cholecalciferol (Vitamin D3) [Vitamin D3] 1,000 unit PO DAILY 05/21/15 [History] metFORMIN [Glucophage] 500 mg PO BIDWM 05/21/15 [History] Nitroglycerin [Nitrostat] 0.4 mg SL AD PRN 11/07/15 [History] Aspirin [Lo-Dose Aspirin EC] 81 mg PO DAILY 09/07/18 [History] Cetirizine HCl 10 mg PO DAILY 09/07/18 [History] Vitamin E Acetate [Vitamin E] 400 unit PO DAILY 09/07/18 [History] Amiodarone [Cordarone] 200 mg PO DAILY #30 tablet 09/23/18 [Rx] Amiodarone [Cordarone] 400 mg PO BID #10 tablet 09/23/18 [Rx] Apixaban [Eliquis] 5 mg PO BID #60 tablet 09/23/18 [Rx] Furosemide [Lasix] 40 mg PO DAILY #30 tablet 09/23/18 [Rx] Walker [WALKER] 1 each .ROUTE AD #1 each 09/23/18 [Rx] Allergy/AdvReac Type Severity Reaction Status Date / Time Sulfa (Sulfonamide Allergy Hives Verified 09/07/18 15:32 Antibiotics) oxycodone [Oxycodone] AdvReac Dizziness Verified 09/07/18 15:32 All Systems PM: A 10-system review of systems was performed and is negative for pertinent findings except as documented above in the HPI. Review of systems: All the systems are reviewed everything is benign except the systems and symptoms I mentioned in the history of present illness - Constitutional Vitals: Temp Pulse Resp BP Pulse Ox 98.4 F 51 19 129/68 96 09/27/18 10:57 09/27/18 12:06 09/27/18 12:06 09/27/18 12:06 09/27/18 12:06 General appearance: Present: cooperative, A&O X 3, no acute distress, answers questions appropriately Exam: a - Head Head exam: Present: atraumatic, normal inspection - Respiratory Respiratory exam: Present: decreased breath sounds. Absent: rales, respiratory distress, rhonchi, wheezes - Cardiovascular Cardiovascular exam: Present: bradycardia, +S1, +S2. Absent: systolic murmur, tachycardia - GI/Abdominal GI/Abdominal exam: Present: normal bowel sounds, soft. Absent: rebound, rigid, tenderness - Extremities Exam Extremities exam: Present: normal inspection, warm. Absent: calf tenderness, pedal edema, tenderness - Back Exam Back exam: Absent: CVA tenderness (L), CVA tenderness (R) - Neurological Exam Neurological exam: Present: alert, oriented X3, strengths equal and symetr throughout. Absent: speech deficit - Psychiatric Psychiatric exam: Present: anxious - Skin Skin exam: Absent: rash Internal Med - H&P Results - Labs CBC & Chem 7: 09/27/18 11:04 09/27/18 11:04 Labs: Short CBC 09/27/18 Range/Units 11:04 WBC 8.7 (4.3-11.1) K/mcL Hgb 13.8 (12.9-16.9) g/dL Hct 41.3 (37.5-50.1) % Plt Count 267 (140-400) K/mcL Neutrophils # 5.6 (1.6-8.9) K/mcL BMP 09/27/18 11:04 Sodium 137 Potassium 4.2 Chloride 102 Carbon Dioxide 28 BUN 12 Creatinine 1.06 Glucose 126 H Calcium 9.7 Cardiac Enzymes 09/27/18 Range/Units 11:04 Troponin I < 0.03 (< 0.04) ng/mL - Impressions ITS Impressions Chest X-Ray 09/27/18 10:53 IMPRESSION: Resolved CHF. No acute cardiopulmonary disease. D/ / John Hsieh MD / John Hsieh MD Interpreting Provider: John Hsieh MD - Assessment and Plan (1) Chest pain Current Visit: Yes Status: Acute Assessment and plan: Will admit the pt into Tele for observation Will place pt on monitoring and evaluation advisor check serial troponin so far negative troponin EKG reviewed - Sinus alexus, No acute ischemic changes noticed Cont pt on ASA and Nitro PRN for pain Will check FLP in AM Held eliquis, since pt may need to for LHC In AM Consulted Cardiology - may go for LHC in AM NPO after mid night Qualifiers: Chest pain type: unspecified Qualified Code(s): R07.9 - Chest pain, unspecified (2) CAD (coronary artery disease) Current Visit: No Status: Chronic Assessment and plan: resumed home meds Qualifiers: Coronary Disease-Associated Artery/Lesion type: [place] artery [place] vs. transplanted heart: [place] heart Associated angina: without angina Qualified Code(s): I25.10 - Atherosclerotic heart disease of [place] coronary artery without angina pectoris (3) Cardiomyopathy Current Visit: No Status: Chronic Assessment and plan: Cont home meds ASA, statin, BB and ACEI Qualifiers: Cardiomyopathy type: unspecified Qualified Code(s): I42.9 - Cardiomyopathy, unspecified (4) Paroxysmal A-fib Current Visit: Yes Status: Acute Assessment and plan: rate controlled and in NSR now Cont Amiodarone and Coreg Held Eliquis for today if pt need to go for any procedure ( [facility] in AM ) (5) Diabetes mellitus Current Visit: No Status: Chronic Assessment and plan: ADA diet and on ISS Qualifiers: Diabetes mellitus type: type 2 Diabetes mellitus long-term insulin use: without long-term use Diabetes mellitus complication status: with unspecified complications Qualified Code(s): E11.8 - Type 2 diabetes mellitus with unspecified complications (6) HLD (hyperlipidemia) Current Visit: No Status: Chronic Assessment and plan: on Statin Qualifiers: Hyperlipidemia type: pure hypercholesterolemia Qualified Code(s): E78.00 - Pure hypercholesterolemia, unspecified; E78.0 - Pure hypercholesterolemia (7) HTN (hypertension) Current Visit: No Status: Chronic Assessment and plan: stable BP Resumed home meds Qualifiers: Hypertension type: essential hypertension Qualified Code(s): I10 - Essential (primary) hypertension - Time Spent With Patient Total time spent is greater than 50% in coordination of care (as documented) at patient's floor/unit and/or counseling patient:
--- NOTE | 2018-09-28 06:40 | Electrocardiograph Report ---
[facility] Test Date: 2018-09-27 Pat Name: Delroy Aguilar Department: EXAM4 Room: 3B47 Gender: M Grey Percher: : 1935 Requested By: Alondra Barton Order Number: [id number] Reading MD: Yaya Vega Measurements Intervals [place] Rate: 51 P: 27 VA: 186 QRS: -43 QRSD: 100 T: -41 QT: 537 QTc: 495 Interpretive Statements Sinus rhythm Left anterior fascicular block Abnormal R-wave progression, early transition Left ventricular hypertrophy Nonspecific T abnormalities, diffuse leads Borderline prolonged QT interval Electronically Signed On 09-28-2018 6:38:57 EDT by Yaya Vega
[2018-09-28 06:46] LABS: Basophils % 0.5 %; Eosinophils # 0.3 K/mcL (0.0-0.6); Eosinophils % 3.3 %; Hemoglobin 14.3 g/dL (12.9-16.9); Immature Granulocytes % 0.8 % (0-4); Lymphocytes # 2.2 K/mcL (0.6-4.6); Lymphocytes % 28.8 %; Mean Corpuscular Hemoglobin 31.8 pg (28.0-33.3); Mean Corpuscular Volume 93.3 fL (83.0-100.0); Mean Platelet Volume 9.1 fL (9.4-12.4); Monocytes # 0.6 K/mcL (0.0-1.3); Monocytes % 8.1 %; Neutrophils # 4.6 K/mcL (1.6-8.9); Platelet Count 259 K/mcL (140-400); Red Cell Distribution Width 13.2 % (11.5-14.5); Segmented Neutrophils % 58.5 %
[2018-09-28 07:08] LABS: BUN/Creatinine Ratio 13 (6-26); Blood Urea Nitrogen 13 mg/dL (8-23); Calcium 9.5 mg/dL (8.6-10.3); Carbon Dioxide 26 mEq/L (23-29); Chloride 104 mEq/L (98-107); Chol/HDL Ratio 2.1 (0-4.9); Cholesterol 87 mg/dL (< 200); Glucose 121 mg/dL (70-105); HDL Cholesterol 42 mg/dL (40-59); LDL Cholesterol,Calculated 29 mg/dL (0-99); Magnesium 2.2 mg/dL (1.6-2.6); Osmolality,Calculated 285 (280-300); Potassium 4.1 mEq/L (3.5-5.1); Sodium 137 mEq/L (136-145); Triglycerides 82 mg/dL (< 150); eGFR For Non-African Americans > 60 (> 60)
[2018-09-28] MEDS ORDERED: Loratadine 10 MG TABLET PO SCH (09:00)
[2018-09-28] MEDS ORDERED: Cholecalciferol (D-3) 1,000 UNIT TABLET PO SCH (09:00)
[2018-09-28] MEDS ORDERED: Aspirin Enteric Coated 81 MG Tablet PO SCH (09:00)
[2018-09-28] MEDS ORDERED: Furosemide 40 MG TABLET PO SCH (09:00)
[2018-09-28] MEDS: Nitroglycerin 0.4 MG TAB.SUBL SL SCH ×2 (09:18→09:21)
--- NOTE | 2018-09-28 11:09 | Cardiology Consult Note ---
Date of Encounter: 09/28/18 Time of Encounter: 11:07 Assessment and Plan (1) Chest pain Current Visit: Yes Status: Acute Presents with sudden onset of left sided chest pain, achy, non radiating and associated with shortness of breath and diaphoresis. Relieved by aspirin and nitroglycerin. Currently chest pain free. Troponin negative. No ischemic ECG changes. Pt recently hospitalized for A-Flutter RVR, s/p CARYN/DCCV to SR. Was found to have reduced EF 20%. EF 09/07 on TTE was 55% and on CARYN 09/18 was 20%, thought to be tachycardia induced. Recommendation prior to d/c was to repeat TTE in 1 month to re-evaluate EF. Did not undergo any recent ischemic eval. [facility] 03/14/14: EF 55%. BMS placed in 80% mLCx lesion with good results. LAD with 20% mid and distal stenosis. RCA with 20% prox and 50% right PDA stenosis. Given new CMP, chest pain and CAD hx, recommend [facility] to further evaluate. R/B/A discussed. Pt agrees to proceed. Last Eliquis was was 24 hours ago. LHC today. Qualifiers: Chest pain type: unspecified Qualified Code(s): R07.9 - Chest pain, unspecified (2) Paroxysmal A-fib Current Visit: Yes Status: Acute Hx PAF/Fl with recent hospitalization/ DCCV x 2. Currently SR. On amio and BB. Anticoagulated on Eliquis, on hold for [facility]. (3) CAD (coronary artery disease) Current Visit: No Status: Chronic Hx BMS x 2 to LCx, most recent 2013. Continue ASA, Statin, BB. Plan for LH as above. Qualifiers: Coronary Disease-Associated Artery/Lesion type: [place] artery [place] vs. transplanted heart: [place] heart Associated angina: without angina Qualified Code(s): I25.10 - Atherosclerotic heart disease of [place] coronary artery without angina pectoris (4) Cardiomyopathy Current Visit: No Status: Chronic TTE 09/07/18 EF 55%, mild LVDD. On CARYN 09/18 EF is reduced to 20%, global. Newly reduced, suspect tachycardia induced given A-Flutter RVR, but pt also has CAD hx with BMS in 2013. Now presents with CP. LHC as above to r/o ischemic cause. Continue BB and ACEi. Qualifiers: Cardiomyopathy type: unspecified Qualified Code(s): I42.9 - Cardiomyopathy, unspecified Discussion w patient/family: The assessment and plan as outlined above was discussed with the patient and/or family members who expressed understanding and agreement. All questions were answered. Thank you for involving us in the care of your patient. Please call with any questions. I will discuss all the above with Dr. Cueto and make changes as necessary. History of Present Illness Consult date: 09/28/18 Requesting physician: Alexa Joaquin Consult reason: Chest pain Chief complaint: chest pain History of present illness: Mr. Aguilar is a 83 year old male with a PMH of PAF/Fl on Eliquis, recent cardioversion x 2 on Amiodarone, new diagnosis of systolic CHF 09/18 with LVEF 20 %, CAD s/p PCI, HTN, DM, prostate cancer status post prostatectomy, and hyperlipidemia who was admitted twice this month for SOB /Afib with RVR, now he came to ER with sudden onset of chest pain located sub sternal and left chest wall region. His chest pain is achy type, non radiating and associated with shortness of breath and diaphoresis. His chest pain was relieved by aspirin and nitroglycerin sublingual tablets. Patient denies any active chest pain now. Troponin negative. Cardiology consulted for further recs. Prior CV testing: CARYN/DCCV 09/18/18: No LA or DANIEL thrombus. Successful synchronized direct current cardioversion of atrial flutter. LVEF 20%. Severely globally decreased LV systolic function.Moderately reduced RV systolic function. TTE 09/07/18: LVEF 55%, mild LVDD, mild AR. Pharmacologic nuclear stress test 10/05/17: Negative for ischemia or prior infarct. Gated EF 59%. C 03/14/14: EF 55%. BMS placed in 80% mLCx lesion with good results. LAD with 20% mid and distal stenosis. RCA with 20% prox and 50% right PDA stenosis. Past Med Surg Social Fam HX - Past Medical History Medical history: arthritis, atrial fibrillation, cancer, cardiomyopathy, [place] artery disease, diabetes, hyperlipidemia, hypertension, other Additional medical history: Prostate cancer Psychiatric history: no psych history - Past Surgical History Surgical History: angioplasty/stent Additional surgical history: 2008, 2013 heart cath with stent x 2. prostatecto my 1992 - Social History Smoking Status: Never smoker Smokeless Tobacco Status: No Alcohol use: occasionally Drug use: none - Family History Mother Family Member Ethnicity: Non- Living Status: Hx Family Cardiac Disorders: Yes (HTN, HLD, CAD) Hx Family Endocrine Disorder: Yes (DM) Father Family Member Ethnicity: Non- Living Status: Hx Family Cardiac Disorders: Yes (CAD) Brother Family Member Ethnicity: Non- Living Status: Hx Family Cardiac Disorders: Yes (HD, Heart murmur) Medications and Allergies Atorvastatin [Lipitor] 40 mg PO HS 05/21/15 [History] Carvedilol 3.125 mg PO DAILY 05/21/15 [History] Cholecalciferol (Vitamin D3) [Vitamin D3] 1,000 unit PO DAILY 05/21/15 [History] metFORMIN [Glucophage] 500 mg PO BIDWM 05/21/15 [History] Nitroglycerin [Nitrostat] 0.4 mg SL AD PRN 11/07/15 [History] Aspirin [Lo-Dose Aspirin EC] 81 mg PO DAILY 09/07/18 [History] Cetirizine HCl 10 mg PO DAILY 09/07/18 [History] Vitamin E Acetate [Vitamin E] 400 unit PO DAILY 09/07/18 [History] Amiodarone [Cordarone] 200 mg PO DAILY #30 tablet 09/23/18 [Rx] Amiodarone [Cordarone] 400 mg PO BID #10 tablet 09/23/18 [Rx] Apixaban [Eliquis] 5 mg PO BID #60 tablet 09/23/18 [Rx] Furosemide [Lasix] 40 mg PO DAILY #30 tablet 09/23/18 [Rx] Walker [WALKER] 1 each .ROUTE AD #1 each 09/23/18 [Rx] Allergy/AdvReac Type Severity Reaction Status Date / Time Sulfa (Sulfonamide Allergy Hives Verified 09/07/18 15:32 Antibiotics) oxycodone [Oxycodone] AdvReac Dizziness Verified 09/07/18 15:32 All Systems Review: The remainder of the systems were reviewed and are negative - Cardiovascular Cardiovascular: as per HPI, chest pain at rest, diaphoresis, dyspnea on exertion Physical Examination Vital Signs, Last 4 Hours Temp Pulse Resp BP Pulse Ox 09/28/18 07:15 97.9 F 55 16 132/72 96 Vital Signs Temp Pulse Resp BP Pulse Ox 09/28/18 07:15 97.9 F 55 16 132/72 96 09/28/18 03:31 98.5 F 71 14 127/70 97 09/27/18 23:19 97.9 F 55 14 132/72 96 09/27/18 19:18 98.4 F 57 14 124/68 95 09/27/18 17:01 97 09/27/18 16:16 98.4 F 54 16 150/80 97 09/27/18 12:06 51 19 129/68 96 09/27/18 11:37 50 19 125/74 97 Intake and Output 09/27/18 09/28/18 09/28/18 23:59 07:59 15:59 Output Total 250 / 250 Balance -250 / -250 Output: Urine 250 / 250 Other: # Urine Diapers 2 1 Weight 71.5 kg 70.9 kg Blood Glucose* 138 125 Patient Weight 09/28/18 23:59 Weight 70.9 kg General: Conversant, No Apparent Distress HEENT: Atraumatic, Normocephaly, Mucus Membranes Moist Neck: No JVD, Normal carotid pulses Cardiac: Reg Rate and Rhythm, Normal S1 and S2, No Murmur Lungs: Normal Breath Sounds, No Wheeze, Rales, Rhonchi Neuro: Alert and responsive, No focal deficits noted Abdomen: Soft, Non-Tender Skin: No rashes noted on visualized skin Musculoskeletal: No Chest Wall Tenderness Extremities: No Clubbing, No Cyanosis, No Edema, Normal Pulses Results 09/28/18 06:12 09/28/18 06:12 Lab Results 09/27/18 09/27/18 09/27/18 11:04 11:04 11:04 WBC 8.7 Hgb 13.8 Hct 41.3 Plt Count 267 INR 1.7 APTT 38.8 H D-Dimer 336 Sodium 137 Potassium 4.2 Chloride 102 Carbon Dioxide 28 BUN 12 Creatinine 1.06 Glucose 126 H Calcium 9.7 Magnesium Troponin I < 0.03 09/27/18 09/27/18 09/28/18 17:06 22:53 06:12 WBC 7.8 Hgb 14.3 Hct 42.0 Plt Count 259 INR APTT D-Dimer Sodium Potassium Chloride Carbon Dioxide BUN Creatinine Glucose Calcium Magnesium Troponin I < 0.03 < 0.03 09/28/18 06:12 WBC Hgb Hct Plt Count INR APTT D-Dimer Sodium 137 Potassium 4.1 Chloride 104 Carbon Dioxide 26 BUN 13 Creatinine 1.04 Glucose 121 H Calcium 9.5 Magnesium 2.2 Troponin I Short CBC 09/28/18 09/27/18 Range/Units 06:12 11:04 WBC 7.8 8.7 (4.3-11.1) K/mcL Hgb 14.3 13.8 (12.9-16.9) g/dL Hct 42.0 41.3 (37.5-50.1) % Plt Count 259 267 (140-400) K/mcL Neutrophils # 4.6 5.6 (1.6-8.9) K/mcL BMP 09/28/18 09/27/18 Range/Units 06:12 11:04 Sodium 137 137 (136-145) mEq/L Potassium 4.1 4.2 (3.5-5.1) mEq/L Chloride 104 102 (98-107) mEq/L Carbon Dioxide 26 28 (23-29) mEq/L BUN 13 12 (8-23) mg/dL Creatinine 1.04 1.06 (0.70-1.30) mg/dL Glucose 121 H 126 H (70-105) mg/dL Calcium 9.5 9.7 (8.6-10.3) mg/dL Cardiac Enzymes 09/27/18 09/27/18 09/27/18 Range/Units 22:53 17:06 11:04 Troponin I < 0.03 < 0.03 < 0.03 (< 0.04) ng/mL Impressions Chest X-Ray 09/27/18 10:53 IMPRESSION: Resolved CHF. No acute cardiopulmonary disease. D/ / John Hsieh MD / John Hsieh MD Interpreting Provider: John Hsieh MD Active Medications Acetaminophen (Tylenol) 650 mg PO Q6HR PRN PRN Reason: Mild Pain/Fever Stop: 03/29/19 14:03 Amiodarone HCl (Cordarone) 200 mg PO DAILY [facility] Stop: 03/31/19 09:01 Aspirin (Aspirin Ec) 81 mg PO DAILY [facility] Stop: 03/30/19 09:01 Last Admin: 09/28/18 09:20 Dose: 81 mg Documented by: Atorvastatin Calcium (Lipitor) 40 mg PO HS SANDRA Stop: 03/29/19 21:01 Last Admin: 09/27/18 20:52 Dose: 40 mg Documented by: Carvedilol (Coreg) 3.125 mg PO DAILY [facility] Stop: 03/30/19 09:01 Last Admin: 09/28/18 09:19 Dose: 3.125 mg Documented by: Docusate Sodium (Colace) 100 mg PO BID PRN PRN Reason: Constipation Stop: 03/29/19 21:01 Furosemide (Lasix) 40 mg PO DAILY [facility] Stop: 03/30/19 09:01 Last Admin: 09/28/18 09:20 Dose: 40 mg Documented by: Loratadine (Claritin) 10 mg PO DAILY [facility] Stop: 03/30/19 09:01 Last Admin: 09/28/18 09:20 Dose: 10 mg Documented by: Naloxone HCl (Narcan) 0.4 mg IVP Q2MPRN PRN PRN Reason: SEE COMMENTS Stop: 03/29/19 14:03 Nitroglycerin (Nitroglycerin) 0.4 mg SL Q5MPRN PRN PRN Reason: Chest Pain Stop: 03/29/19 14:32 Ondansetron HCl (Zofran) 4 mg IVP Q8HR PRN PRN Reason: Nausea And Vomiting Stop: 03/29/19 14:03 Vitamin D (Vitamin D) 1,000 unit PO DAILY [facility] Stop: 03/30/19 09:01 Last Admin: 09/28/18 09:19 Dose: 1,000 unit Documented by: - Imaging and Cardiology Echo: report reviewed Cardiac cath: report reviewed - EKG Interpretation EKG results cardiology: personally reviewed (Sinus alexus rate 51), other (12 hr tele AVG HR 52, SR) Consult Discharge Plan - Plan Referrals: Per Fisher MD [Primary Care Provider] - 10/04/18 10:15 am
[2018-09-28] MEDS ORDERED: Nitroglycerin 1,000 MCG/10 ML VIAL IV ONE (12:02)
[2018-09-28] MEDS ORDERED: ISOVUE-370 200 ML INFUS..BTL ONE (12:02)
[2018-09-28] MEDS ORDERED: Heparin 1,000 UNITS/500 mL 500 ML ONE (12:02)
[2018-09-28] MEDS ORDERED: *HR* Heparin 10,000 UNIT/10 ML VIAL ONE (12:02)
[2018-09-28] MEDS ORDERED: 0.9 % Sodium Chloride 1,000 ML ONE ×2 (12:02→12:22)
--- NOTE | 2018-09-28 12:15 | Pre-Sedation Evaluation ---
Pre-sedation evaluation - Pre-sedation checklist Date of procedure: 09/28/18 Procedure: heart cath Recent Vitals: Last Vital Signs Temp 97.9 F 09/28/18 11:57 Pulse 58 09/28/18 11:57 Resp 16 09/28/18 11:57 BP 106/64 09/28/18 11:57 Pulse Ox 96 09/28/18 11:57 H&P (including ROS) documented in medical record: Yes Previous reaction to sedatives/anesthetics: No Dietary Status: NPO after Midnight Airway Assessment: Patient can open mouth completely, TMJ function normal Dentition: dentures removed Possible difficult airway: No ASA Classification *see protocol: CLASS II-Mild systemic disease Plan of Care: Pt appropriate candidate for procedure/moderate/conscious sedation Cardiac Registry (Cardio Only) - Functional Capacity Functional Capacity: >=4 METS without symptoms - Clincal Frailty Scale Clinical Frailty Scale: Well
[2018-09-28] MEDS ORDERED: *HR* Midazolam HCl 2 MG/2 ML VIAL ONE (12:22)
[2018-09-28] MEDS ORDERED: Verapamil 5 MG/2 ML VIAL ONE (12:24)
--- NOTE | 2018-09-28 13:04 | Event Note ---
Date of Encounter: 09/28/18 Time of Encounter: 13:03 - Cardiology Event Note Cath completed LVEF 45% RCA plaque to mild disease LCA plaque to mild disease right dominant recommend continue all previous cardiac meds non cardiac work up per primary team.
--- NOTE | 2018-09-28 13:12 | Invasive Diagnostic Lab Proc ---
Name: Delroy Aguilar Date of Study: 09/28/2018 Date: 1935 Ht: 66.1in Medical Record#: [id number] Age: 83 Wt: 156.53lb Gender: Male BSA: 1.81 Order #: [id number] BMI: 25.16 Physicians Procedure Physician: Bobby Guzman MD Referring MD: Referring MD: Staff Name Position Time In Sites, Sherlyn RT (R) Scrub 12:25 PM Nela Whitt RT (R) Scrub 12:25 PM Radha England RN Head Esthetician 12:25 PM Matt Aguilera RN Monitor 12:25 PM Procedures Performed Procedure L HRT ARTERY/VENTRICLE ANGIO Pre-Procedure Checklist Informed consent is complete signed and on chart. H&P is on chart. ID band is on and ID verified with patient. Patient NPO for procedure The procedure was described for the patient and questions were answered. Blood Pressure: 132/72 ECG is on chart. Rhythm: Sinus Bradycardia Plan of Care Patient will tolerate the procedure without complications. Adequate level of comfort will be maintained. Hemodynamics will remain stable Patient will recover from procedure without complications. Respiratory function will be maintained. Cardiac rhythm will remain stable. Patient temperature will be maintained. Patient and/or family have verbalized understanding of the procedure. Patient Education Chief Complaint/Reason for Test: Cardiac Cath Developmental Category: Adult (18-64 years) Developmentally Appropriate for Age: Yes Learning Barriers: None Education Needs: Procedure Education Method: Verbal Information Taught: Cardiac Cath Educational Evaluation: Able to repeat information Intravenous Access Time IV Size Location DC'd Fluid/Drip Rate Units RN 12:22 PM 20g 1 05/05" Patent On Arrival 0.9NaCl 25 ml/hr Radha England RN Allergies SULFA (sulfonamide) oxycodone IV PAIN MED PERCOUT,SULFA Sulfa (Sulfonamide Antibiotics) Vital Signs Time BP (mmHg) HR (bpm) O2 Sat. RR (bpm) LOC 12:23 PM 91 / 55 51 98 % 19 5 = Fully awake and oriented or at pre-proc level 12:23 PM / % 4 = Oriented but drowsy 12:38 PM / % 4 = Oriented but drowsy 12:23 PM 91 / 55 64 96 % 21 12:29 PM 179 / 75 53 97 % 29 12:33 PM 167 / 67 51 96 % 31 12:38 PM 149 / 68 51 95 % 20 12:43 PM 112 / 40 53 93 % 13 12:48 PM 125 / 49 55 91 % 10 12:53 PM 135 / 54 52 96 % 11 Procedural Medications Time Medication Dose Units Method Given By 12:23 PM Oxygen 2 L/min nasal cannula Radha England RN 12:31 PM Oxygen 2 L/min nasal cannula Radha England RN 12:32 PM Versed 2 mg Intravenous Radha England RN 12:37 PM Lidocaine 2% 1.5 ml Subcutaneous Bobby Guzman MD 12:39 PM Heparin 4000 units Nitroglycerin 200 mcg Verapamil 2.5 mg Intraarterial Bobby Guzman MD ASA Classification: CLASS III- Severe systemic disease (i.e. prior AMI, diabetes with vascular complications, morbid obesity) Bhavesh Score Preprocedure Postprocedure Activity 2- Moves 4 extremities sustained head lift Activity 2- Moves 4 extremities sustained head lift Circulation 2- SBP +/= 20 points of pre-anesthetic level Circulation 2- SBP +/= 20 points of pre-anesthetic level Consciousness 2- Awake and alert oriented x 3 Consciousness 2- Awake and alert oriented x 3 O2 Saturation 2- Able to maintain O2 satruation of 92% on room air O2 Saturation 2- Able to maintain O2 satruation of 92% on room air Respiratory 2- Able to deep breathe and cough well Respiratory 2- Able to deep breathe and cough well Total Score 10 Total Score 10 Contrast Agent: Isovue Diagnostic Contrast: 50 ml Total Contrast: 50 ml Fluoro Dose: 34 mGy Procedure Log Time Note Enter By 12:22 PM CathStat 12:23 PM Vitals capture started with the following parameters, Patient=Adult, Interval=5 min, Initial Ugmpolsr=967 mmHg, Deflation Rate=5 mmHg, Cuff placed on Left Arm 12:23 PM Pt arrived to [facility] at 12:23 oparker 12:23 PM Patient charges- Angio tray pack, Navilyst 3mm J, Pulse Oximetry and ACIST tubing and transducer oparker 12:23 PM Time: 12:23 Patient comfortable and pain free: Yes oparker 12:23 PM Time: 12:23LOC: 5 = Fully awake and oriented or at pre-proc level oparker 12:23 PM Time: 12:23 Oxygen on at 2 L/min per nasal cannula by Radha England RN oparbobby 12:23 PM HR=64 bpm, NIBP=91/55 mmhg, SpO2=96.0 %, Resp=21 B/min 12:24 PM Case Delayed No oparker 12: PM Physician arrived 12: oparker 12:24 PM ASA Class CLASS III- Severe systemic disease (i.e. prior AMI, diabetes with vascular complications, morbid obesity) oparker 12:24 PM Meet and greet completed oparker 12:24 PM Sign in performed according to hospital policy. Informed consent was obtained. oparker 12:24 PM Recorded ECG: HR=54 Condition=Condition 1 12: PM Procedure start 12: oparker 12:25 PM Sherlyn Cade RT (R) Position: Scrub Time in: 12:25 oparker 12:25 PM Nela Whitt RT (R) Position: Scrub Time in: 12:25 oparker 12:25 PM Radha England RN Position: Head Esthetician Time in: 12: oparker 12:25 PM Matt Aguilera RN Position: Monitor Time in: 12:25 oparker 12:29 PM HR=53 bpm, YRER=572/75 mmhg, SpO2=97.0 %, Resp=29 B/min, Comment=Sinus Sohan 12:32 PM Time: 12:31 Oxygen on at 2 L/min per nasal cannula by Radha England RN oparker 12:32 PM Time: 12:32 Versed 2 mg Intravenous Given by Radha England RN oparbobby 12:32 PM Hair removed from procedure site in holding area using clippers. Bilateral groin prepped with Chloraprep by Radha England RN, then patient was draped. Skin intact. oparker 12:33 PM HR=51 bpm, YJQN=624/67 mmhg, SpO2=96.0 %, Resp=31 B/min, Comment=Sinus Sohan 12:37 PM Time: 12:37 1.5 ml Lidocaine 2% to right radial Subcutaneous Given by MD sathish Huynhrbobby 12:38 PM Time: 12:23 Patient comfortable and pain free: Yes oparker 12:38 PM Time: 12:23LOC: 4 = Oriented but drowsy oparker 12:38 PM HR=51 bpm, WWDK=775/68 mmhg, SpO2=95.0 %, Resp=20 B/min, Comment=Sinus Sohan 12:39 PM Access obtained by percutaneous puncture. 5Fr 10cm Terumo Glidesheath sheath placed in right Radial artery. [id number] oparker 12:39 PM Time: 12:39 Patient given 4,000 units Heparin, 200 mcg Nitroglycerin, and 2.5 mg Verapamil Intraarterial by Bobby Guzman MD. This is given to reduce risk of vessel spasm and thrombosis. oparker 12:40 PM Pressure channel 2 zeroed. 12:40 PM 0.035 260cm Navilyst 3mmJ wire [id number] oparker 12:42 PM 5Fr FL 3.5 catheter inserted over the wire [id number] oparker 12:42 PM LCA angiography performed in multiple views. oparker 12:43 PM Recorded Pressure: Ao, HR=56, Condition=Condition 1 (Aorta) Ao 82/58/70 12:43 PM HR=53 bpm, RISI=337/40 mmhg, SpO2=93.0 %, Resp=13 B/min, EtCO2=27 mmHg, Comment=Sinus Sohan 12:44 PM Catheter removed oparker 12:45 PM 5Fr FR 4 catheter inserted over the wire DNC oparker 12:46 PM RCA angiography performed in multiple views. oparker 12:46 PM Recorded Pressure: Ao, HR=54, Condition=Condition 1 (Aorta) Ao 90/61/74 12:47 PM Catheter removed oparker 12:48 PM 5Fr Pigtail catheter inserted over the wire DNC oparker 12:48 PM HR=55 bpm, BTZT=415/49 mmhg, SpO2=91.0 %, Resp=10 B/min, EtCO2=17 mmHg, Comment=Sinus Sohan 12:49 PM Recorded Pressure: LV, HR=54, Condition=Condition 1 (Left Ventricle) LV 102/-2/13 12:49 PM Recorded Pressure: LV, HR=55, Condition=Condition 1 (Left Ventricle) LV 102/9/12 12:50 PM Catheter crossed the aortic valve and was selectively placed in the left ventricle. Pressures recorded on pullback for left heart catheterization. oparker 12:50 PM Recorded Pressure: LV, Ao, HR=56, Condition=Condition 1 (Left Ventricle) LV 110/9/14, (Aorta) Ao 113/- 12:50 PM Bolus angiogram of left Ventricle complete: 12 ml/sec for a total of 36 mls oparker 12:50 PM Catheter removed oparker 12:50 PM Wire removed oparker 12:51 PM Procedure completed at 12:51 09/28/2018 oparker 12:51 PM Sign out completed: Radiation Dose 153.21 mGy, 33.5 Gy/cm2 Fluoro Time: 2.5 Isovue 370 - 200ml contrast 50 ml given by Bobby Guzman MD. Complications: None. The patient was discharged out of the laborer electroplating in stable condition. Sedation minutes 19. Cardiac Rehab Consult needed: No. Confirmed administered medications: Yes oparker 12:51 PM Isovue 370 - 200ml,1 Bottle(s) used. oparker 12:51 PM Arterial sheath pulled, Vasc Band closure device used and was Successful S/N. oparker 12:52 PM 10 ml air in Vasc Band. oparker 12:52 PM Estimated Blood Loss: minimal oparker 12:52 PM Post ECG Sinus Bradycardia oparker 12:52 PM Post Blood Pressure 125/49 oparker 12:52 PM 12:52 Post Pulses Bilateral DP 2+ oparker 12:52 PM Information taught Cardiac Cath and Vasc Band oparker 12:52 PM Education needs Procedure, Plan of Care, and Disease Process oparker 12:52 PM Learning barriers :None oparker 12:53 PM Education Methods Verbal oparker 12:53 PM Education evaluation Able to repeat information oparker 12:53 PM Site status No bleeding/hematoma - Rt Wrist as reported by Sites, Sherlyn RT (R) at 12:53 oparker 12:53 PM Time: 12:38LOC: 4 = Oriented but drowsy oparker 12:53 PM Time: 12:38 Patient comfortable and pain free: Yes oparker 12:53 PM HR=52 bpm, VBUN=433/54 mmhg, SpO2=96 %, Resp=11 B/min 12:53 PM Family placed in consult room. oparker 12:54 PM Did you address DYLAN flow and Dominance? YesCoronary Dominance: right oparker 12:56 PM Lesion found in Proximal LAD. Pre Stenosis: 100 Pre DYLAN Flow: oparker 12:57 PM Report given to lyndon BOYD Pt taken to 3B Room #47. 12:57 oparker 12:57 PM Patient out of room: 12:57 oparker 12:57 PM Lesion found in Mid LAD. Pre Stenosis: 10 Pre DYLAN Flow: oparker 12:58 PM Lesion found in Mid Circumflex. Pre Stenosis: 25 Pre DYLAN Flow: oparker 12:58 PM Lesion found in Mid RCA. Pre Stenosis: 10 Pre DYLAN Flow: oparker 12:58 PM Lesion found in Distal RCA. Pre Stenosis: 10 Pre DYLAN Flow: oparker 12:59 PM Lesion found in Mid LMCA. Pre Stenosis: 10 Pre DYLAN Flow: oparker 12:59 PM Left Main Coronary Artery with 10% stenosis oparker 12:59 PM Proximal Left Anterior Descending Coronary Artery with 10% stenosis. If graft is supplying this territory, 0 % stenosis. oparker 12:59 PM Mid/Distal Left Anterior Descending Coronary Artery and diagonal branches with 10% stenosis. If graft is supplying this area, 0 % stenosis oparker 12:59 PM Circumflex, Obtuse Marginal, Left Posterior Descending, and Left Posterolateral Coronary Arteries with 25 % stenosis. If graft is supplying this area, 0 % stenosis oparker 01:00 PM Right Coronary, Right Posterior Descending Arteries with Right Posterolateral and Acute Marginal branches with 10 % stenosis. If graft is supplying this area, 0 % stenosis oparker Complications Complication None Hemodynamics Pressures Site Systolic/A Wave Diastolic/V Wave Mean AO 82 58 70 AO 90 61 74 LV 102 -2 13 LV 102 9 12 LV 110 9 14 AO 113 -19 53 Post Procedure Information Blood Pressure: 125/49 mmHg Rhythm: Sinus Bradycardia Post procedural instructions were given Closure Device Time Device Success/Fail 09/28/2018 12:55:00 PM Mechanical Compression Successful Site Checks Time Location Status Staff Sheath In? Note 12:53 PM Rt Wrist No bleeding/hematoma Sites, Sherlyn RT (R) Pulses Time Site Pre-Procedure Post-Procedure Note 09/28/2018 12:23:00 PM Bilateral DP & PT 2+ 09/28/2018 12:23:00 PM Bilateral radial 2+ 12:52:00 PM Bilateral DP 2+ Updated by Matt Aguilera RN on 09/28/2018 1:03:24 PM electronically signed on 09/28/2018 1:03:52 PM with status of Final
--- NOTE | 2018-09-28 13:41 | Discharge Summary ---
- NOTES TO OUTPATIENT PROVIDER Notes to Outpatient Provider: Follow up with PCP in one week. Follow-up with cardiology in 2 to 3 weeks. Orders not resulted at time of discharge: Pending orders 09/28/18 11:23 CL Cardiac Catheterization [CL] Routine 09/28/18 13:32 EV limited echocardiogram Routine Date of Encounter: 09/28/18 Time of Encounter: 13:37 - Discharge Diagnosis (1) Chest pain Priority: Primary Status: Acute Qualifiers: Chest pain type: unspecified Qualified Code(s): R07.9 - Chest pain, unspecified (2) CAD (coronary artery disease) Priority: Secondary Status: Chronic Qualifiers: Coronary Disease-Associated Artery/Lesion type: [place] artery [place] vs. transplanted heart: [place] heart Associated angina: without angina Qualified Code(s): I25.10 - Atherosclerotic heart disease of [place] coronary artery without angina pectoris (3) Cardiomyopathy Priority: Secondary Status: Chronic Qualifiers: Cardiomyopathy type: unspecified Qualified Code(s): I42.9 - Cardiomyopathy, unspecified (4) Paroxysmal A-fib Priority: Secondary Status: Acute (5) Diabetes mellitus Priority: Secondary Status: Chronic Qualifiers: Diabetes mellitus type: type 2 Diabetes mellitus jail insulin use: without terminal operations supervisor use Diabetes mellitus complication status: with unspecified complications Qualified Code(s): E11.8 - 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 Aguilar is a 83 year old male with a PMH of paroxysmal atrial fibrillation on Eliquis for anti coag, recent cardioversion x 2, on Amiodarone now, Systolic CHF with LVEF @ 20 %, CAD, HTN, DM, prostate cancer status post prostatectomy, and hyperlipidemia who was admitted twice this month for SOB / Afib with RVR, now he came to ER with sudden onset of chest pain located sub sternal and left chest wall region. Patient stated his chest pain is more like achy type, non radiating and associated with shortness of breath and diaphoresis. His chest pain was relieved by aspirin and nitroglycerin sublingual tablets. Patient denied any active chest pain now. In the ER his EKG showed sinus bradycardia with no acute ST, T changes. His initial troponin l< 0.03. He was admitted in the hospital and placed him on director of cardiac rehabilitation. His serial troponin came back as negative. Since patient is high risk for ACS, he was evaluated by catering assistant and who did left heart catheterization today. His LHC showed LVEF 45%, RCA plaque to mild disease and LCA plaque to mild disease. So catering assistant recommend to continue current medications and follow with them as an outpatient. Will discharge him home in a stable condition today. - Time Spent with Patient Total time spent providing and/or coordinating discharge services: - Discharge Medications Prescriptions: Continued metFORMIN [Glucophage] 500 mg PO BIDWM Cholecalciferol (Vitamin D3) [Vitamin D3] 1,000 unit PO DAILY Carvedilol 3.125 mg PO DAILY Atorvastatin [Lipitor] 40 mg PO HS Nitroglycerin [Nitrostat] 0.4 mg SL AD PRN PRN Reason: Chest Pain Aspirin [Lo-Dose Aspirin EC] 81 mg PO DAILY Cetirizine HCl 10 mg PO DAILY Vitamin E Acetate [Vitamin E] 400 unit PO DAILY Apixaban [Eliquis] 5 mg PO BID #60 tablet Furosemide [Lasix] 40 mg PO DAILY #30 tablet Walker [WALKER] 1 each .ROUTE AD #1 each Amiodarone [Cordarone] 200 mg PO DAILY #30 tablet Discontinued Amiodarone [Cordarone] 400 mg PO BID #10 tablet Home Medications: Atorvastatin [Lipitor] 40 mg PO HS 05/21/15 [History] Carvedilol 3.125 mg PO DAILY 05/21/15 [History] Cholecalciferol (Vitamin D3) [Vitamin D3] 1,000 unit PO DAILY 05/21/15 [History] metFORMIN [Glucophage] 500 mg PO BIDWM 05/21/15 [History] Nitroglycerin [Nitrostat] 0.4 mg SL AD PRN 11/07/15 [History] Aspirin [Lo-Dose Aspirin EC] 81 mg PO DAILY 09/07/18 [History] Cetirizine HCl 10 mg PO DAILY 09/07/18 [History] Vitamin E Acetate [Vitamin E] 400 unit PO DAILY 09/07/18 [History] Amiodarone [Cordarone] 200 mg PO DAILY #30 tablet 09/23/18 [Rx] Apixaban [Eliquis] 5 mg PO BID #60 tablet 09/23/18 [Rx] Furosemide [Lasix] 40 mg PO DAILY #30 tablet 09/23/18 [Rx] Walker [WALKER] 1 each .ROUTE AD #1 each 09/23/18 [Rx] Allergies/Adverse Reactions: Allergy/AdvReac Type Severity Reaction Status Date / Time Sulfa (Sulfonamide Allergy Hives Verified 09/07/18 15:32 Antibiotics) oxycodone [Oxycodone] AdvReac Dizziness Verified 09/07/18 15:32 Date of admission: 09/27/18 14:19 Primary care physician: Per Fisher MD Consults: 09/27/18 14:26 Consult to Cardiology [CONS] Routine Comment: Consulting Provider: Cardiology [place] Reason for Consult: Acute chest pain.. Typical angina equivalent CP Time Notified: 14:31 Call Completed: Yes - Constitutional Vitals: Temp Pulse Resp BP Pulse Ox 98.7 F 60 16 122/87 97 09/28/18 13:05 09/28/18 13:30 09/28/18 13:30 09/28/18 13:30 09/28/18 13:30 General appearance: Present: cooperative, A&O X 3, no acute distress, answers questions appropriately Exam: Gen: Alert, awake, Oriented to time,place and person Chest: Diminished breath sounds B/L, No wheezing, No crackles, No rales Heart: S1S2+ bradycardia, No murmurs Abd: Soft, NT, BS +, No organomegaly Ext: No edema, pulses are palpable, No calf tenderness Neuro : No acute focal neuro deficits noticed Skin: No rash. - Patient Status Disposition: Home, Self-Care Condition: Good Overall status at discharge: patient is back to baseline - Discharge Instructions Follow Up With: Per Fisher MD [Primary Care Provider] - 10/04/18 10:15 am Gennaro Vilchis MD [Partnered Physician] - - Diet and Activity Activity: increase activity as tolerated Diet: low salt diet
[2018-09-28 16:08] VITALS: BP 113/69
[2018-09-28] MEDS ORDERED: Apixaban 5 MG TABLET PO SCH (21:00)
[2018-09-29] MEDS ORDERED: *HR* Amiodarone 200 MG TABLET PO SCH (09:00)
== END 2018-09-28 16:08 | disposition home or self-care (01) ==
LOC: 3BNU 10:51 → EMEROOARM 10:51 → SUATTDRO 14:19 → 3BNU 15:30
PROVIDERS: ADMIT Internal Medicine Nephrology; ATTEND Family Medicine

== ENCOUNTER 2020-04-20 22:31 | Inpatient (IN) ==
[2020-04-20 22:57] LABS: Basophils % 0.3 %; Eosinophils # 0.2 K/mcL (0.0-0.6); Eosinophils % 2.5 %; Hematocrit 42.4 % (37.5-50.1); Hemoglobin 14.2 g/dL (12.9-16.9); Immature Granulocytes % 0.6 % (0-4); Lymphocytes # 2.1 K/mcL (0.6-4.6); Lymphocytes % 23.6 %; Mean Corpuscular HGB Conc 33.5 g/dL (31.6-35.5); Mean Corpuscular Hemoglobin 31.5 pg (28.0-33.3); Monocytes # 0.8 K/mcL (0.0-1.3); Monocytes % 8.4 %; Neutrophils # 5.8 K/mcL (1.6-8.9); Platelet Count 281 K/mcL (140-400); Red Blood Count 4.51 M/mcL (4.19-5.50); Red Cell Distribution Width 12.6 % (11.5-14.5); Segmented Neutrophils % 64.6 %
[2020-04-20] MEDS ORDERED: Dexamethasone Sodium Phos/PF 10 MG/ML VIAL IVP ONE (23:00)
[2020-04-20 23:01] LABS: INR 1.7; Prothrombin Time 19.6 Seconds (9.4-12.1)
[2020-04-20 23:03] LABS: Activated Partial Thrombo Time 31.7 Seconds (26.0-36.0)
[2020-04-20 23:18] LABS: Alanine Aminotransferase 38 Units/L (7-52); Albumin 4.3 g/dL (3.5-5.7); Albumin/Globulin Ratio 1.8 (1.1-2.2); Alkaline Phosphatase 76 Units/L (34-104); Aspartate Amino Transferase 36 Units/L (13-39); BUN/Creatinine Ratio 12 (6-26); Bilirubin,Direct 0.3 mg/dL (0.0-0.2); Bilirubin,Indirect 0.9 mg/dL (0.0-1.0); Bilirubin,Total 1.2 mg/dL (0.3-1.0); Blood Urea Nitrogen 14 mg/dL (8-23); C-Reactive Protein < 5 mg/L (Less than 10); Calcium 9.9 mg/dL (8.6-10.3); Carbon Dioxide 25 mEq/L (23-29); Chloride 101 mEq/L (98-107); Globulin 2.4 g/dL (2.4-3.5); Glucose 129 mg/dL (70-105); Lactate Dehydrogenase 164 Units/L (140-271); Magnesium 1.9 mg/dL (1.6-2.6); Osmolality,Calculated 286 (280-300); Phosphorous 2.7 mg/dL (2.7-4.5); Potassium 3.6 mEq/L (3.5-5.1); Sodium 137 mEq/L (136-145); Total Protein 6.7 g/dL (6.4-8.9); Troponin I < 0.03 ng/mL (< 0.04); eGFR For African Americans > 60 (> 60); eGFR For Non-African Americans 60 (> 60)
[2020-04-20 23:36] LABS: Ferritin 121 ng/mL (20-250)
[2020-04-20] MEDS ORDERED: Naloxone 0.4 MG/ML INJ IVP PRN (23:55)
[2020-04-21] MEDS ORDERED: Isovue-370 500 ML BOTTLE IVP ONE (00:28)
[2020-04-21] MEDS ORDERED: Furosemide 20 MG/2 ML VIAL IVP ONE (00:38)
[2020-04-21] MEDS ORDERED: Ipratropium 1 PUFF INHALER IH PRN (01:54)
[2020-04-21 04:24] LABS: Basophils % 0.4 %; Eosinophils # 0.1 K/mcL (0.0-0.6); Hematocrit 42.6 % (37.5-50.1); Hemoglobin 14.3 g/dL (12.9-16.9); Immature Granulocytes % 0.7 % (0-4); Lymphocytes # 1.1 K/mcL (0.6-4.6); Lymphocytes % 13.7 %; Mean Corpuscular HGB Conc 33.6 g/dL (31.6-35.5); Mean Corpuscular Hemoglobin 31.3 pg (28.0-33.3); Mean Corpuscular Volume 93.2 fL (83.0-100.0); Mean Platelet Volume 9.1 fL (9.4-12.4); Monocytes # 0.2 K/mcL (0.0-1.3); Neutrophils # 6.3 K/mcL (1.6-8.9); Platelet Count 249 K/mcL (140-400); Red Blood Count 4.57 M/mcL (4.19-5.50); Red Cell Distribution Width 12.5 % (11.5-14.5); Segmented Neutrophils % 82.2 %; White Blood Count 7.7 K/mcL (4.3-11.1)
[2020-04-21 04:44] LABS: BUN/Creatinine Ratio 12 (6-26); Blood Urea Nitrogen 14 mg/dL (8-23); Calcium 9.6 mg/dL (8.6-10.3); Carbon Dioxide 26 mEq/L (23-29); Chloride 100 mEq/L (98-107); Glucose 164 mg/dL (70-105); Osmolality,Calculated 286 (280-300); Potassium 3.7 mEq/L (3.5-5.1); Sodium 136 mEq/L (136-145); eGFR For African Americans > 60 (> 60); eGFR For Non-African Americans > 60 (> 60)
[2020-04-21] MEDS ORDERED: Dextrose Gel 15 GM/37.5 ML TUBE PO PRN ×2 (07:36)
[2020-04-21] MEDS ORDERED: *HR* Dextrose 50 % in Water (Vial) 50 ML VIAL IVP PRN (07:36)
[2020-04-21] MEDS ORDERED: D5% in Water 1,000 ML IVC PRN (07:36)
[2020-04-21] MEDS: Ipratropium 1 PUFF INHALER IH SCH ×5 (11:13→23:51)
[2020-04-21] MEDS: Dexamethasone 4 MG/ML VIAL IVP SCH (11:19)
[2020-04-21] MEDS: Spironolactone 25 MG TABLET PO SCH (11:20)
[2020-04-21] MEDS: Furosemide 40 MG/4 ML VIAL IVP SCH ×2 (11:20→20:34)
[2020-04-21] MEDS: Insulin LISPRO 300 UNITS/3 ML VIAL SUBQ SCH ×3 (11:53→22:14)
[2020-04-21] MEDS ORDERED: Nitroglycerin 0.4 MG TAB.SUBL SL PRN (14:29)
[2020-04-21] MEDS: Loratadine 10 MG TABLET PO SCH (20:33)
[2020-04-21] MEDS: Apixaban 5 MG TABLET PO SCH (20:34)
[2020-04-22] MEDS: Ipratropium 1 PUFF INHALER IH SCH ×5 (04:06→19:50)
[2020-04-22 05:56] LABS: Basophils % 0.1 %; Hematocrit 40.9 % (37.5-50.1); Hemoglobin 14.3 g/dL (12.9-16.9); Immature Granulocytes % 0.5 % (0-4); Lymphocytes # 1.4 K/mcL (0.6-4.6); Lymphocytes % 10.8 %; Mean Corpuscular Hemoglobin 32.4 pg (28.0-33.3); Mean Corpuscular Volume 92.5 fL (83.0-100.0); Mean Platelet Volume 9.3 fL (9.4-12.4); Monocytes # 0.8 K/mcL (0.0-1.3); Monocytes % 6.6 %; Platelet Count 289 K/mcL (140-400); Red Blood Count 4.42 M/mcL (4.19-5.50); Red Cell Distribution Width 12.4 % (11.5-14.5)
[2020-04-22 06:00] LABS: Fibrinogen 244 mg/dL (169-393); Neutrophils # 10.4 K/mcL (1.6-8.9); White Blood Count 12.7 K/mcL (4.3-11.1)
[2020-04-22 06:02] LABS: D-Dimer 296 ng/mLFEU (0-500)
[2020-04-22 06:14] LABS: BUN/Creatinine Ratio 14 (6-26); Blood Urea Nitrogen 15 mg/dL (8-23); Calcium 9.7 mg/dL (8.6-10.3); Carbon Dioxide 27 mEq/L (23-29); Chloride 99 mEq/L (98-107); Glucose 167 mg/dL (70-105); Osmolality,Calculated 285 (280-300); Potassium 3.3 mEq/L (3.5-5.1); Sodium 135 mEq/L (136-145); eGFR For African Americans > 60 (> 60); eGFR For Non-African Americans > 60 (> 60)
[2020-04-22] MEDS: lisinopriL 10 MG TABLET PO SCH (08:41)
[2020-04-22] MEDS: Apixaban 5 MG TABLET PO SCH ×2 (08:41→21:30)
[2020-04-22] MEDS: Cholecalciferol (D-3) 1,000 UNIT (25MCG) TABLET PO SCH (08:41)
[2020-04-22] MEDS: Spironolactone 25 MG TABLET PO SCH (08:41)
[2020-04-22] MEDS: Dexamethasone 4 MG/ML VIAL IVP SCH (08:42)
[2020-04-22] MEDS: Aspirin Enteric Coated 81 MG Tablet PO SCH (08:44)
[2020-04-22] MEDS: Insulin LISPRO 300 UNITS/3 ML VIAL SUBQ SCH ×4 (08:44→21:30)
[2020-04-22] MEDS: Furosemide 40 MG/4 ML VIAL IVP SCH (08:44)
[2020-04-22 10:10] LABS: Estimated Average Glucose 169 mg/dl; Hemoglobin A1C 7.5 %
[2020-04-22] MEDS: Loratadine 10 MG TABLET PO SCH (21:00)
[2020-04-23] MEDS: Ipratropium 1 PUFF INHALER IH SCH ×4 (00:13→10:50)
[2020-04-23 06:56] LABS: BUN/Creatinine Ratio 17 (6-26); Blood Urea Nitrogen 18 mg/dL (8-23); Calcium 10.8 mg/dL (8.6-10.3); Carbon Dioxide 29 mEq/L (23-29); Chloride 98 mEq/L (98-107); Glucose 143 mg/dL (70-105); Magnesium 2.3 mg/dL (1.6-2.6); Osmolality,Calculated 288 (280-300); Potassium 3.8 mEq/L (3.5-5.1); Sodium 137 mEq/L (136-145); eGFR For African Americans > 60 (> 60); eGFR For Non-African Americans > 60 (> 60)
[2020-04-23 07:21] LABS: Basophils % 0.1 %; Eosinophils % 0.2 %; Hematocrit 42.3 % (37.5-50.1); Immature Granulocytes % 0.5 % (0-4); Lymphocytes # 1.4 K/mcL (0.6-4.6); Lymphocytes % 11.2 %; Mean Corpuscular HGB Conc 33.8 g/dL (31.6-35.5); Mean Corpuscular Hemoglobin 32.5 pg (28.0-33.3); Mean Corpuscular Volume 96.1 fL (83.0-100.0); Mean Platelet Volume 9.1 fL (9.4-12.4); Monocytes # 0.9 K/mcL (0.0-1.3); Neutrophils # 10.4 K/mcL (1.6-8.9); Platelet Count 265 K/mcL (140-400); Red Cell Distribution Width 12.6 % (11.5-14.5); White Blood Count 12.8 K/mcL (4.3-11.1)
[2020-04-23 07:22] LABS: Hemoglobin 14.3 g/dL (12.9-16.9)
[2020-04-23] MEDS: Insulin LISPRO 300 UNITS/3 ML VIAL SUBQ SCH ×2 (08:04→12:49)
[2020-04-23] MEDS: lisinopriL 10 MG TABLET PO SCH (08:42)
[2020-04-23] MEDS: Apixaban 5 MG TABLET PO SCH (08:42)
[2020-04-23] MEDS: Cholecalciferol (D-3) 1,000 UNIT (25MCG) TABLET PO SCH (08:43)
[2020-04-23] MEDS: Dexamethasone 4 MG/ML VIAL IVP SCH (08:43)
[2020-04-23] MEDS: Aspirin Enteric Coated 81 MG Tablet PO SCH (08:43)
[2020-04-23] MEDS ORDERED: Furosemide 40 MG TABLET PO SCH (09:00)
[2020-04-23] MEDS ORDERED: *HR* Amiodarone 200 MG TABLET PO SCH (09:00)
[2020-04-23 12:50] VITALS: BP 146/89
== END 2020-04-23 15:04 | disposition home or self-care (01) | DRG 177 ==
LOC: 2NENU 22:31 → EMEROOARM 22:31 → SUATTDRO 04-21 00:32 → 2NENU 04-21 01:55 → SUATTDRO 04-21 20:45
PROVIDERS: ADMIT Student in an Organized Health Care Education/Training Program; ATTEND Internal Medicine

== ENCOUNTER 2020-10-27 06:45 | Observation (INO) ==
[2020-10-27 07:19] LABS: Basophils # 0.1 K/mcL (0.0-0.2); Basophils % 0.7 %; Eosinophils # 0.3 K/mcL (0.0-0.6); Eosinophils % 3.8 %; Hematocrit 38.7 % (37.5-50.1); Hemoglobin 12.7 g/dL (12.9-16.9); Immature Granulocytes % 0.4 % (0-4); Lymphocytes # 1.9 K/mcL (0.6-4.6); Lymphocytes % 25.2 %; Mean Corpuscular HGB Conc 32.8 g/dL (31.6-35.5); Mean Corpuscular Hemoglobin 30.9 pg (28.0-33.3); Mean Corpuscular Volume 94.2 fL (83.0-100.0); Monocytes # 0.6 K/mcL (0.0-1.3); Monocytes % 8.1 %; Neutrophils # 4.7 K/mcL (1.6-8.9); Platelet Count 186 K/mcL (140-400); Red Blood Count 4.11 M/mcL (4.19-5.50); Red Cell Distribution Width 13.1 % (11.5-14.5); Segmented Neutrophils % 61.8 %; White Blood Count 7.6 K/mcL (4.3-11.1)
[2020-10-27] MEDS ORDERED: Aspirin 325 MG TABLET PO ONE (07:19)
[2020-10-27 07:33] LABS: BUN/Creatinine Ratio 11 (6-26); Blood Urea Nitrogen 14 mg/dL (8-23); Calcium 9.5 mg/dL (8.6-10.3); Carbon Dioxide 25 mEq/L (23-29); Chloride 106 mEq/L (98-107); Glucose 167 mg/dL (70-105); Lipase 24 Units/L (11-82); Osmolality,Calculated 290 (280-300); Sodium 138 mEq/L (136-145); eGFR For African Americans > 60 (> 60); eGFR For Non-African Americans 55 (> 60)
[2020-10-27 07:39] LABS: Troponin I < 0.03 ng/mL (< 0.04)
[2020-10-27 08:07] LABS: INR 1.3; Prothrombin Time 14.6 Seconds (9.4-12.1)
[2020-10-27 08:10] LABS: Activated Partial Thrombo Time 30.8 Seconds (26.0-36.0)
[2020-10-27] MEDS ORDERED: Ondansetron 4 MG/2 ML VIAL IVP PRN (09:29)
[2020-10-27] MEDS ORDERED: Naloxone 0.4 MG/ML INJ IVP PRN (09:29)
[2020-10-27] MEDS ORDERED: Acetaminophen 325 MG TABLET PO PRN (09:29)
[2020-10-27] MEDS ORDERED: Nitroglycerin 0.4 MG TAB.SUBL SL PRN (09:31)
[2020-10-27] MEDS: Furosemide 20 MG/2 ML VIAL IVP SCH ×2 (11:00→21:15)
[2020-10-27] MEDS: Isosorbide MONOnitrate (24 HR) 30 MG TAB.ER.24H PO SCH (11:00)
[2020-10-27] MEDS ORDERED: Loratadine 10 MG TABLET PO PRN (18:36)
[2020-10-27] MEDS: Apixaban 5 MG TABLET PO SCH (21:14)
[2020-10-28 02:26] LABS: Basophils % 0.4 %; Eosinophils # 0.3 K/mcL (0.0-0.6); Eosinophils % 2.8 %; Hemoglobin 12.5 g/dL (12.9-16.9); Immature Granulocytes % 0.2 % (0-4); Lymphocytes # 2.2 K/mcL (0.6-4.6); Lymphocytes % 24.8 %; Mean Corpuscular HGB Conc 33.8 g/dL (31.6-35.5); Mean Corpuscular Hemoglobin 31.5 pg (28.0-33.3); Mean Corpuscular Volume 93.2 fL (83.0-100.0); Mean Platelet Volume 9.3 fL (9.4-12.4); Monocytes # 0.7 K/mcL (0.0-1.3); Neutrophils # 5.8 K/mcL (1.6-8.9); Platelet Count 190 K/mcL (140-400); Red Blood Count 3.97 M/mcL (4.19-5.50); Segmented Neutrophils % 63.8 %; White Blood Count 9.1 K/mcL (4.3-11.1)
[2020-10-28 02:45] LABS: BUN/Creatinine Ratio 11 (6-26); Blood Urea Nitrogen 14 mg/dL (8-23); Calcium 9.5 mg/dL (8.6-10.3); Carbon Dioxide 26 mEq/L (23-29); Chloride 103 mEq/L (98-107); Glucose 137 mg/dL (70-105); Osmolality,Calculated 293 (280-300); Phosphorous 4.5 mg/dL (2.7-4.5); Sodium 140 mEq/L (136-145); eGFR For African Americans > 60 (> 60); eGFR For Non-African Americans 54 (> 60)
[2020-10-28 06:57] VITALS: BP 123/65
[2020-10-28] MEDS ORDERED: lisinopriL 10 MG TABLET PO SCH (09:00)
[2020-10-28] MEDS ORDERED: Aspirin Enteric Coated 81 MG Tablet PO SCH (09:00)
[2020-10-28] MEDS ORDERED: *HR* Amiodarone 200 MG TABLET PO SCH (09:00)
[2020-10-28] MEDS: Isosorbide MONOnitrate (24 HR) 30 MG TAB.ER.24H PO SCH (09:02)
[2020-10-28] MEDS: Furosemide 20 MG/2 ML VIAL IVP SCH (09:02)
[2020-10-28] MEDS: Apixaban 5 MG TABLET PO SCH (09:02)
== END 2020-10-28 11:24 | disposition home or self-care (01) ==
LOC: EMEROOARM 06:45 → 3ANU 06:45 → SUATTDRO 09:56 → 3ANU 11:10
PROVIDERS: ADMIT Internal Medicine; ATTEND Internal Medicine

== ENCOUNTER 2022-02-07 08:31 | Observation (INO) ==
[2022-02-07 09:15] LABS: Basophils # 0.1 K/mcL (0.0-0.2); Basophils % 0.5 %; Eosinophils # 0.2 K/mcL (0.0-0.6); Eosinophils % 1.7 %; Hematocrit 37.8 % (37.5-50.1); Hemoglobin 12.1 g/dL (12.9-16.9); Immature Granulocytes % 0.3 % (0-4); Lymphocytes # 1.6 K/mcL (0.6-4.6); Lymphocytes % 16.6 %; Mean Corpuscular Hemoglobin 28.4 pg (28.0-33.3); Mean Corpuscular Volume 88.7 fL (83.0-100.0); Mean Platelet Volume 9.2 fL (9.4-12.4); Monocytes # 0.6 K/mcL (0.0-1.3); Monocytes % 6.4 %; Platelet Count 210 K/mcL (140-400); Red Blood Count 4.26 M/mcL (4.19-5.50); Red Cell Distribution Width 14.2 % (11.5-14.5); Segmented Neutrophils % 74.5 %; White Blood Count 9.4 K/mcL (4.3-11.1)
[2022-02-07 09:31] LABS: Calcium 9.8 mg/dL (8.6-10.3); Potassium 4.7 mEq/L (3.5-5.1); Troponin I 0.03 ng/mL (< 0.04)
[2022-02-07] MEDS ORDERED: Naloxone 0.4 MG/ML INJ IVP PRN (10:35)
[2022-02-07] MEDS ORDERED: D5% in Water 1,000 ML IVC PRN (10:35)
[2022-02-07] MEDS ORDERED: MOM Conc 10 ML UD.LIQ PO PRN (10:35)
[2022-02-07] MEDS ORDERED: Mag Hydrox/Al Hydrox/Simeth 30 ML UDC PO PRN (10:35)
[2022-02-07] MEDS ORDERED: Melatonin 3 MG TABLET PO PRN (10:35)
[2022-02-07] MEDS ORDERED: Dextrose Gel 15 GM/37.5 ML TUBE PO PRN ×2 (10:35)
[2022-02-07] MEDS ORDERED: Acetaminophen 325 MG TABLET PO PRN (10:35)
[2022-02-07] MEDS ORDERED: *HR* Dextrose 50 % in Water (Syg) 50 ML SYRINGE IVP PRN (10:35)
[2022-02-07] MEDS ORDERED: Ondansetron 4 MG/2 ML VIAL IVP PRN (10:35)
[2022-02-07] MEDS: Insulin LISPRO 300 UNITS/3 ML VIAL SUBQ SCH ×2 (12:05→16:37)
[2022-02-07] MEDS ORDERED: Nitroglycerin 0.4 MG TAB.SUBL SL PRN (12:14)
[2022-02-07] MEDS: Isosorbide MONOnitrate (24 HR) 60 MG TAB.ER.24H PO SCH (12:48)
[2022-02-07] MEDS: Apixaban 5 MG TABLET PO SCH (20:31)
[2022-02-07] MEDS ORDERED: Insulin LISPRO 300 UNITS/3 ML VIAL SUBQ SCH (21:00)
[2022-02-08 05:52] LABS: Hematocrit 34.4 % (37.5-50.1); Hemoglobin 11.2 g/dL (12.9-16.9); Mean Corpuscular HGB Conc 32.6 g/dL (31.6-35.5); Mean Corpuscular Hemoglobin 28.7 pg (28.0-33.3); Mean Corpuscular Volume 88.2 fL (83.0-100.0); Platelet Count 194 K/mcL (140-400); Red Cell Distribution Width 14.2 % (11.5-14.5); White Blood Count 8.6 K/mcL (4.3-11.1)
[2022-02-08 06:10] LABS: Calcium 9.3 mg/dL (8.6-10.3); Chol/HDL Ratio 2.5 (0-4.9); Magnesium 2.1 mg/dL (1.6-2.6); Potassium 4.3 mEq/L (3.5-5.1)
[2022-02-08] MEDS: Insulin LISPRO 300 UNITS/3 ML VIAL SUBQ SCH ×2 (08:15→10:44)
[2022-02-08] MEDS: Isosorbide MONOnitrate (24 HR) 60 MG TAB.ER.24H PO SCH (08:17)
[2022-02-08] MEDS: Apixaban 5 MG TABLET PO SCH (08:17)
[2022-02-08] MEDS ORDERED: Aspirin Enteric Coated 81 MG Tablet PO SCH (09:00)
[2022-02-08 11:04] VITALS: O2SAT 96
[2022-02-08] MEDS ORDERED: *HR* Heparin 10,000 UNIT/10 ML VIAL ONE (12:36)
[2022-02-08] MEDS ORDERED: 0.9 % Sodium Chloride 2,000 ML ONE (12:36)
[2022-02-08] MEDS ORDERED: Iopamidol - 370 200 ML INFUS..BTL ONE (12:36)
[2022-02-08] MEDS ORDERED: Heparin 1,000 UNITS/500 mL 500 ML ONE (12:36)
[2022-02-08] MEDS ORDERED: Nitroglycerin 1,000 MCG/5 ML VIAL IV ONE (12:36)
[2022-02-08] MEDS ORDERED: Metoprolol XL (24 HR) Succ 25 MG TAB.ER.24H PO SCH (13:30)
[2022-02-08] MEDS ORDERED: Ranolazine 500 MG TAB.ER.12H PO SCH ×2 (15:00)
[2022-02-08 15:32] VITALS: BP 129/70; PULSE 63; TEMP 97.8
[2022-02-08] MEDS ORDERED: Apixaban 5 MG TABLET PO SCH (21:00)
[2022-02-09] MEDS ORDERED: Isosorbide MONOnitrate (24 HR) 60 MG TAB.ER.24H PO SCH (09:00)
[2022-02-09 09:55] LABS: Estimated Average Glucose 174 mg/dl; Hemoglobin A1C 7.7 %
== END 2022-02-08 15:41 | disposition home or self-care (01) ==
LOC: 3BNU 08:31 → EMEROOARM 08:31 → SUATTDRO 10:34 → 3BNU 11:43
PROVIDERS: ADMIT Internal Medicine; ATTEND Registered Nurse